=== PATIENT | male | born 1980 ===

== ENCOUNTER → 2020-03-24 11:33 | Outpatient (BNVA) | payer MEDICARE, MEDICAID, SELFPAY | PROVIDERS: Visit Provider Physician Assistant | DX: R74.8 Abnormal levels of other serum enzymes (principal); K75.81 Nonalcoholic steatohepatitis (NASH); K59.09 Other constipation; R10.12 Left upper quadrant pain | CPT/HCPCS: 99214 ==

== ENCOUNTER 2020-04-08 09:19 | Outpatient (REF) | payer MEDICARE, MEDICAID, SELFPAY ==
[2020-04-08 11:26] LABS: Alanine Aminotransferase 61 U/L (0-40); Albumin Level 4.7 g/dL (3.5-5.0); Alkaline Phosphatase 90 U/L (39-117); Aspartate Amino Transferase 41 U/L (5-37); Bilirubin Direct 0.4 mg/dL (0.0-0.5); Total Protein 7.8 g/dL (6.5-8.0)
[2020-04-08 11:44] LABS: HBS Num1 0.96 mIU/mL (0-7.99); HBc Num1 0.05 S/CO (0.00-0.79); HBsAGNum1 0.19 S/CO (0.00-0.99); Hepatitis B Core Antibody Nonreactive (Nonreactive); Hepatitis B Surface Antigen Negative (Negative); ~HepC Num1 0.08 S/CO (0.00-0.79); ~Hepatitis B Surface Antibody NONREACTIVE (Nonreactive); ~Hepatitis C Antibody Nonreactive (Nonreactive)
[2020-04-09 04:27] LABS: Hepatitis A Antibody IgG Nonreactive (Nonreactive); ~Hepatitis A Antibody IgG 0.46 S/CO (0.00-0.99)
[2020-04-12 14:56] LABS: Insulin Level Total 20.8 uIU/mL
== END 2020-04-08 09:20 | disposition home or self-care (01) ==
LOC: HO.LAB 09:19
PROVIDERS: PCP Internal Medicine; Visit Provider Physician Assistant
DX: K76.0 Fatty (change of) liver, not elsewhere classified (principal); R74.8 Abnormal levels of other serum enzymes; R10.11 Right upper quadrant pain
CPT/HCPCS: 80076; 83525; 86704; 86706; 86708; 86803; 87340

== ENCOUNTER → 2020-05-03 10:17 | Outpatient (BNVA) | payer MEDICARE, MEDICAID, SELFPAY | PROVIDERS: PCP Internal Medicine; Visit Provider Physician Assistant | DX: K75.81 Nonalcoholic steatohepatitis (NASH) (principal) | CPT/HCPCS: Q3014 ==

== ENCOUNTER → 2020-05-11 14:49 | Outpatient (BNVA) | payer MEDICARE, MEDICAID, SELFPAY | PROVIDERS: PCP Internal Medicine; Visit Provider Physician Assistant | DX: Z23 Encounter for immunization (principal) | CPT/HCPCS: 90471; 90632; 90746 ==

== ENCOUNTER → 2020-06-22 14:50 | Outpatient (BNVA) | payer MEDICARE, MEDICAID, SELFPAY | PROVIDERS: PCP Internal Medicine; Visit Provider Physician Assistant | DX: Z23 Encounter for immunization (principal) | CPT/HCPCS: 90471; 90746 ==

== ENCOUNTER 2020-07-12 09:24 | Outpatient (REF) | payer MEDICARE, MEDICAID, SELFPAY ==
[2020-07-12 10:07] LABS: MANUAL DIFF FLAG NO
[2020-07-12 10:10] LABS: Basophils Percent Auto 0.6 % (0-2); Eosinophils Absolute Auto 0.1 X10*3/uL (0.0-0.4); Eosinophils Percent Auto 2.1 % (0-4); Imm Gran Abs Auto 0.01 X10*3/uL (0.00-0.03); Imm Gran Pct Auto 0.2 % (0.0-0.4); Lymphocytes Absolute Auto 2.3 X10*3/uL (1.2-4.9); Lymphocytes Percent Auto 43.1 % (20-40); Mean Corpuscular HGB Conc 34.8 g/dl (31.0-36.0); Mean Corpuscular Hemoglobin 31.4 pg (27.0-33.0); Mean Corpuscular Volume 90.4 fL (80-98); Mean Platelet Volume 9.6 fL (9.4-12.4); Monocytes Absolute Auto 0.3 X10*3/uL (0.1-1.2); Monocytes Percent Auto 5.5 % (2-11); Neutrophils Absolute Auto 2.6 X10*3/uL (2.0-8.3); Neutrophils Percent Auto 48.5 % (45-73); Platelet Count 180 X10*3/uL (160-400); Red Blood Count 5.09 X10*6/uL (4.60-5.80); Red Cell Distribution Width 12.2 % (11.0-16.0); White Blood Count 5.3 X10*3/uL (4.8-10.8)
[2020-07-12 10:30] LABS: Estimated Average Glucose 108 mg/dL; Hemoglobin A1c % 5.4 %
[2020-07-12 10:35] LABS: Alanine Aminotransferase 57 U/L (0-40); Albumin Level 4.7 g/dL (3.5-5.0); Alkaline Phosphatase 81 U/L (39-117); Anion Gap 13 (12-20); Aspartate Amino Transferase 30 U/L (5-37); Bilirubin Total 0.9 mg/dL (0.0-1.0); Blood Urea Nitrogen 18 mg/dL (9-16); Calcium 9.5 mg/dL (8.4-10.2); Carbon Dioxide 26 mmol/L (22-29); Chloride 105 mmol/L (96-108); Cholesterol 161 mg/dL; Estimated Glomerular Filt Rate > 60; Glucose Fasting 104 mg/dL (60-99); HDL Cholesterol 33 mg/dL; LDL Cholesterol Calculated 104 mg/dl; Potassium 4.1 mmol/l (3.3-5.1); Sodium 140 mmol/L (135-145); Total Protein 7.7 g/dL (6.5-8.0); Triglycerides 120 mg/dL; Uric Acid 10.1 mg/dL (3.4-7.0)
[2020-07-12 10:40] LABS: Glucose Urine UA NEG (NEG); Leukocyte Esterase Urine NEG (NEG); Nitrite Urine NEG (NEG); Specific Gravity - Urine 1.025 (1.005-1.025); Urine Blood NEG (NEG); Urine Ketones NEG (NEG); Urine Protein NEG (NEG-TRACE)
[2020-07-12 10:42] LABS: Appearance Urine CLEAR; Color Urine YELLOW
[2020-07-12 10:45] LABS: Creatinine Urine 179.54 mg/dL; Microalbum/Creatinine Ratio Ur 40.6 ug/mg cr
[2020-07-12 10:53] LABS: HBsAGNum1 0.29 S/CO (0.00-0.99); Hepatitis B Surface Antigen Negative (Negative)
[2020-07-12 10:55] LABS: TSH reflex Free T4 0.73 mIU/mL (0.32-4.0)
== END 2020-07-12 09:25 | disposition home or self-care (01) ==
LOC: HO.LAB 09:24
PROVIDERS: Absent Provider Physician Assistant; PCP Internal Medicine; Visit Provider Internal Medicine
DX: R74.8 Abnormal levels of other serum enzymes (principal); K59.04 Chronic idiopathic constipation; I10 Essential (primary) hypertension; E66.9 Obesity, unspecified; E11.9 Type 2 diabetes mellitus without complications; M10.9 Gout, unspecified
CPT/HCPCS: 36415; 80053; 80061; 81003; 82043; 83036; 84443; 84550; 85025; 87340

== ENCOUNTER → 2020-10-27 14:45 | Outpatient (BNVA) | payer MEDICARE, MEDICAID, SELFPAY | PROVIDERS: PCP Internal Medicine; Visit Provider Physician Assistant | DX: R74.8 Abnormal levels of other serum enzymes (principal) | CPT/HCPCS: 99212 ==

== ENCOUNTER → 2020-11-17 15:02 | Outpatient (BNVA) | payer MEDICARE, MEDICAID, SELFPAY | PROVIDERS: PCP Internal Medicine; Visit Provider Physician Assistant | DX: Z23 Encounter for immunization (principal) | CPT/HCPCS: 90471; 90472; 90632; 90746 ==

== ENCOUNTER 2020-12-24 08:33 | Outpatient (REF) | payer MEDICARE, MEDICAID, SELFPAY ==
[2020-12-24 09:21] LABS: MANUAL DIFF FLAG NO
[2020-12-24 09:25] LABS: Basophils Percent Auto 0.3 % (0-2); Eosinophils Absolute Auto 0.1 X10*3/uL (0.0-0.4); Eosinophils Percent Auto 2.4 % (0-4); Hemoglobin 14.7 g/dl (14.0-18.0); Imm Gran Abs Auto 0.02 X10*3/uL (0.00-0.03); Imm Gran Pct Auto 0.3 % (0.0-0.4); Lymphocytes Absolute Auto 2.1 X10*3/uL (1.2-4.9); Lymphocytes Percent Auto 36.2 % (20-40); Mean Corpuscular HGB Conc 33.4 g/dl (31.0-36.0); Mean Corpuscular Volume 92.8 fL (80-98); Mean Platelet Volume 9.6 fL (9.4-12.4); Monocytes Absolute Auto 0.3 X10*3/uL (0.1-1.2); Monocytes Percent Auto 5.6 % (2-11); Neutrophils Absolute Auto 3.2 X10*3/uL (2.0-8.3); Neutrophils Percent Auto 55.2 % (45-73); Platelet Count 191 X10*3/uL (160-400); Red Blood Count 4.74 X10*6/uL (4.60-5.80); Red Cell Distribution Width 13.5 % (11.0-16.0); White Blood Count 5.9 X10*3/uL (4.8-10.8)
[2020-12-24 09:27] LABS: Glucose Urine UA NEG (NEG); Leukocyte Esterase Urine NEG (NEG); Nitrite Urine NEG (NEG); Urine Blood NEG (NEG); Urine Ketones NEG (NEG); Urine Protein NEG (NEG-TRACE)
[2020-12-24 09:28] LABS: Appearance Urine CLEAR; Color Urine YELLOW
[2020-12-24 09:51] LABS: Creatinine Urine 132.73 mg/dL; Microalbum/Creatinine Ratio Ur 5.2 ug/mg cr
[2020-12-24 09:52] LABS: Estimated Average Glucose 100 mg/dL; Hemoglobin A1c % 5.1 %
[2020-12-24 09:55] LABS: Alanine Aminotransferase 24 U/L (0-40); Albumin Level 4.5 g/dL (3.5-5.0); Alkaline Phosphatase 83 U/L (39-117); Anion Gap 12 (12-20); Aspartate Amino Transferase 19 U/L (5-37); Bilirubin Total 0.6 mg/dL (0.0-1.0); Blood Urea Nitrogen 16 mg/dL (9-16); Calcium 9.6 mg/dL (8.4-10.2); Carbon Dioxide 26 mmol/L (22-29); Chloride 106 mmol/L (96-108); Cholesterol 169 mg/dL; Estimated Glomerular Filt Rate > 60; Glucose Fasting 96 mg/dL (60-99); HDL Cholesterol 38 mg/dL; LDL Cholesterol Calculated 114 mg/dl; Potassium 4.8 mmol/L (3.3-5.1); Sodium 139 mmol/L (135-145); Total Protein 7.5 g/dL (6.5-8.0); Triglycerides 87 mg/dL; Uric Acid 7.3 mg/dL (3.4-7.0)
[2020-12-24 10:18] LABS: TSH reflex Free T4 0.56 uIU/mL (0.32-4.0)
[2020-12-24 16:07] LABS: Alanine Aminotransferase 24 U/L (0-40); Albumin Level 4.5 g/dL (3.5-5.0); Alkaline Phosphatase 83 U/L (39-117); Anion Gap 14 (12-20); Aspartate Amino Transferase 20 U/L (5-37); Bilirubin Total 0.6 mg/dL (0.0-1.0); Blood Urea Nitrogen 16 mg/dL (9-16); Calcium 9.6 mg/dL (8.4-10.2); Carbon Dioxide 25 mmol/L (22-29); Chloride 105 mmol/L (96-108); Cholesterol 171 mg/dL; Estimated Glomerular Filt Rate > 60; Glucose Random 96 mg/dL (60-115); HDL Cholesterol 38 mg/dL; LDL Cholesterol Calculated 116 mg/dl; Potassium 4.8 mmol/L (3.3-5.1); Sodium 139 mmol/L (135-145); Total Protein 7.5 g/dL (6.5-8.0); Triglycerides 87 mg/dL
== END 2020-12-24 08:34 | disposition home or self-care (01) ==
LOC: HO.LAB 08:33
PROVIDERS: PCP Internal Medicine; Referring Provider Internal Medicine; Visit Provider Physician Assistant
DX: R10.11 Right upper quadrant pain (principal); K76.0 Fatty (change of) liver, not elsewhere classified; K59.04 Chronic idiopathic constipation; E66.9 Obesity, unspecified; I10 Essential (primary) hypertension; E11.9 Type 2 diabetes mellitus without complications; Z87.39 Personal history of other diseases of the musculoskeletal system and connective tissue
CPT/HCPCS: 36415; 80053; 80061; 81003; 82043; 83036; 84443; 84550; 85025

== ENCOUNTER → 2021-03-30 14:30 | Outpatient (BNVA) | payer MEDICARE, MEDICAID, SELFPAY | PROVIDERS: PCP Internal Medicine; Referring Provider Internal Medicine; Visit Provider Physician Assistant | DX: K75.81 Nonalcoholic steatohepatitis (NASH) (principal) | CPT/HCPCS: Q3014 ==

== ENCOUNTER 2021-04-22 13:13 | Outpatient (REF) | payer MEDICARE, MEDICAID, SELFPAY ==
[2021-04-22 13:27] LABS: MANUAL DIFF FLAG NO
[2021-04-22 13:59] LABS: Appearance Urine CLEAR; Color Urine YELLOW; Glucose Urine UA NEG (NEG); Leukocyte Esterase Urine NEG (NEG); Nitrite Urine NEG (NEG); Specific Gravity - Urine 1.015 (1.005-1.025); Urine Blood NEG (NEG); Urine Ketones NEG (NEG); Urine Protein NEG (NEG-TRACE)
[2021-04-22 14:05] LABS: Basophils Percent Auto 0.6 % (0-2); Eosinophils Absolute Auto 0.1 X10*3/uL (0.0-0.4); Hematocrit 38.4 % (42.0-52.0); Hemoglobin 12.9 g/dl (14.0-18.0); Imm Gran Abs Auto 0.02 X10*3/uL (0.00-0.03); Imm Gran Pct Auto 0.4 % (0.0-0.4); Lymphocytes Absolute Auto 2.6 X10*3/uL (1.2-4.9); Lymphocytes Percent Auto 47.1 % (20-40); Mean Corpuscular HGB Conc 33.6 g/dl (31.0-36.0); Mean Corpuscular Hemoglobin 31.5 pg (27.0-33.0); Mean Corpuscular Volume 93.9 fL (80.0-98.0); Monocytes Absolute Auto 0.4 X10*3/uL (0.1-1.2); Monocytes Percent Auto 6.4 % (2-11); Neutrophils Absolute Auto 2.4 x10*3/uL (2.0-8.3); Neutrophils Percent Auto 43.5 % (45-73); Platelet Count 165 X10*3/uL (160-400); Red Blood Count 4.09 X10*6/uL (4.60-5.80); Red Cell Distribution Width 13.7 % (11.0-16.0); White Blood Count 5.4 X10*3/uL (4.8-10.8)
[2021-04-22 14:26] LABS: Alanine Aminotransferase 21 U/L (0-40); Albumin Level 4.5 g/dL (3.5-5.0); Alkaline Phosphatase 71 U/L (39-117); Anion Gap 13 (12-20); Aspartate Amino Transferase 23 U/L (5-37); Bilirubin Total 1.2 mg/dL (0.0-1.0); Blood Urea Nitrogen 16 mg/dL (9-16); Calcium 9.5 mg/dL (8.4-10.2); Carbon Dioxide 27 mmol/L (22-29); Chloride 104 mmol/L (96-108); Cholesterol 161 mg/dL; Estimated Glomerular Filt Rate > 60; Glucose Fasting 88 mg/dL (60-99); HDL Cholesterol 36 mg/dL; LDL Cholesterol Calculated 98 mg/dl; Potassium 4.5 mmol/L (3.3-5.1); Sodium 139 mmol/L (135-145); Total Protein 7.4 g/dL (6.5-8.0); Triglycerides 137 mg/dL; Uric Acid 8.9 mg/dL (3.4-7.0)
[2021-04-22 14:36] LABS: Estimated Average Glucose 103 mg/dL; Hemoglobin A1c % 5.2 %
[2021-04-22 14:49] LABS: TSH reflex Free T4 0.56 uIU/mL (0.32-4.0)
== END 2021-04-22 13:14 | disposition home or self-care (01) ==
LOC: HO.LAB 13:13
PROVIDERS: PCP Internal Medicine; Visit Provider Internal Medicine
DX: Z00.00 Encounter for general adult medical examination without abnormal findings (principal); I10 Essential (primary) hypertension; E66.9 Obesity, unspecified; R73.01 Impaired fasting glucose; M10.9 Gout, unspecified; Z87.39 Personal history of other diseases of the musculoskeletal system and connective tissue
CPT/HCPCS: 36415; 80053; 80061; 81003; 83036; 84443; 84550; 85025

== ENCOUNTER 2021-08-24 08:50 | Outpatient (REF) | payer MEDICARE, MEDICAID, SELFPAY ==
[2021-08-24 09:25] LABS: MANUAL DIFF FLAG NO
[2021-08-24 10:13] LABS: Basophils Percent Auto 0.6 % (0-2); Eosinophils Absolute Auto 0.1 X10*3/uL (0.0-0.4); Eosinophils Percent Auto 2.5 % (0-4); Hematocrit 40.5 % (42.0-52.0); Hemoglobin 13.3 g/dl (14.0-18.0); Imm Gran Abs Auto 0.01 X10*3/uL (0.00-0.03); Imm Gran Pct Auto 0.2 % (0.0-0.4); Lymphocytes Percent Auto 41.4 % (20-40); Mean Corpuscular HGB Conc 32.8 g/dl (31.0-36.0); Mean Corpuscular Hemoglobin 30.9 pg (27.0-33.0); Mean Platelet Volume 10.2 fL (9.4-12.4); Monocytes Absolute Auto 0.3 X10*3/uL (0.1-1.2); Neutrophils Absolute Auto 2.4 x10*3/uL (2.0-8.3); Neutrophils Percent Auto 49.3 % (45-73); Platelet Count 174 X10*3/uL (160-400); Red Blood Count 4.31 X10*6/uL (4.60-5.80); Red Cell Distribution Width 13.6 % (11.0-16.0); White Blood Count 4.9 X10*3/uL (4.8-10.8)
[2021-08-24 10:27] LABS: Estimated Average Glucose 103 mg/dL; Hemoglobin A1c % 5.2 %
[2021-08-24 10:48] LABS: Alanine Aminotransferase 20 U/L (0-40); Albumin Level 4.3 g/dL (3.5-5.0); Alkaline Phosphatase 71 U/L (39-117); Anion Gap 9 (12-20); Aspartate Amino Transferase 22 U/L (5-37); Bilirubin Total 0.8 mg/dL (0.0-1.0); Blood Urea Nitrogen 11 mg/dL (9-16); Calcium 9.4 mg/dL (8.4-10.2); Carbon Dioxide 30 mmol/L (22-29); Chloride 105 mmol/L (96-108); Cholesterol 146 mg/dL; Estimated Glomerular Filt Rate > 60; Glucose Fasting 78 mg/dL (60-99); HDL Cholesterol 33 mg/dL; LDL Cholesterol Calculated 79 mg/dl; Potassium 4.3 mmol/L (3.3-5.1); Sodium 140 mmol/L (135-145); Total Protein 7.1 g/dL (6.5-8.0); Triglycerides 173 mg/dL; Uric Acid 8.4 mg/dL (3.4-7.0)
[2021-08-24 10:52] LABS: Appearance Urine HAZY; Color Urine YELLOW; Glucose Urine UA NEG (NEG); Leukocyte Esterase Urine NEG (NEG); Nitrite Urine NEG (NEG); Urine Blood NEG (NEG); Urine Ketones NEG (NEG); Urine Protein NEG (NEG-TRACE)
[2021-08-24 11:49] LABS: TSH reflex Free T4 0.84 uIU/mL (0.32-4.0); Vitamin D 25-OH Total 20.3 ng/mL (>30)
== END 2021-08-24 08:51 | disposition home or self-care (01) ==
LOC: HO.LAB 08:50
PROVIDERS: Absent Provider Internal Medicine; PCP Internal Medicine; Visit Provider Physician Assistant
DX: I10 Essential (primary) hypertension (principal); E78.00 Pure hypercholesterolemia, unspecified; R73.01 Impaired fasting glucose; M10.9 Gout, unspecified; E55.9 Vitamin D deficiency, unspecified
CPT/HCPCS: 36415; 80053; 80061; 81003; 82306; 83036; 84443; 84550; 85025

== ENCOUNTER → 2021-09-28 14:12 | Outpatient (BNVA) | payer MEDICARE, MEDICAID, SELFPAY | PROVIDERS: PCP Internal Medicine; Visit Provider Physician Assistant | DX: K76.0 Fatty (change of) liver, not elsewhere classified (principal); D64.9 Anemia, unspecified | CPT/HCPCS: Q3014 ==

== ENCOUNTER 2021-12-05 09:52 | Outpatient (REF) | payer MEDICARE, MEDICAID, SELFPAY ==
[2021-12-05 10:05] LABS: MANUAL DIFF FLAG NO
[2021-12-05 10:40] LABS: Basophils Percent Auto 0.5 % (0-2); Eosinophils Absolute Auto 0.1 X10*3/uL (0.0-0.4); Eosinophils Percent Auto 2.2 % (0-4); Hematocrit 40.7 % (42.0-52.0); Imm Gran Abs Auto 0.02 X10*3/uL (0.00-0.03); Imm Gran Pct Auto 0.5 % (0.0-0.4); Lymphocytes Absolute Auto 1.9 X10*3/uL (1.2-4.9); Lymphocytes Percent Auto 46.4 % (20-40); Mean Corpuscular HGB Conc 34.4 g/dl (31.0-36.0); Mean Corpuscular Hemoglobin 31.6 pg (27.0-33.0); Mean Corpuscular Volume 91.9 fL (80.0-98.0); Mean Platelet Volume 9.7 fL (9.4-12.4); Monocytes Absolute Auto 0.3 X10*3/uL (0.1-1.2); Monocytes Percent Auto 6.3 % (2-11); Neutrophils Absolute Auto 1.8 x10*3/uL (2.0-8.3); Neutrophils Percent Auto 44.1 % (45-73); Platelet Count 180 X10*3/uL (160-400); Red Blood Count 4.43 X10*6/uL (4.60-5.80); Red Cell Distribution Width 12.9 % (11.0-16.0); White Blood Count 4.1 X10*3/uL (4.8-10.8)
[2021-12-05 11:17] LABS: TSH reflex Free T4 0.76 uIU/mL (0.32-4.0); Vitamin D 25-OH Total 26.3 ng/mL (>30)
[2021-12-05 11:22] LABS: Alanine Aminotransferase 36 U/L (0-40); Albumin Level 4.4 g/dL (3.5-5.0); Alkaline Phosphatase 58 U/L (39-117); Anion Gap 14 (12-20); Aspartate Amino Transferase 24 U/L (5-37); Bilirubin Total 0.7 mg/dL (0.0-1.0); Blood Urea Nitrogen 30 mg/dL (9-16); Calcium 9.2 mg/dL (8.4-10.2); Carbon Dioxide 25 mmol/L (22-29); Chloride 104 mmol/L (96-108); Cholesterol 190 mg/dL; Estimated Glomerular Filt Rate 58; Glucose Fasting 118 mg/dL (60-99); HDL Cholesterol 32 mg/dL; Iron 104 mcg/dL (45-160); LDL Cholesterol Calculated 123 mg/dl; Percent Iron Saturation 31 % (15-50); Potassium 4.9 mmol/L (3.3-5.1); Sodium 138 mmol/L (135-145); Total Iron Binding Capacity 337 mcg/dL (228-428); Total Protein 7.1 g/dL (6.5-8.0); Triglycerides 175 mg/dL; Unsaturated Iron Binding 233 ug/dL; Uric Acid 8.3 mg/dL (3.4-7.0)
[2021-12-05 12:34] LABS: Appearance Urine CLEAR; Color Urine YELLOW; Glucose Urine UA NEG (NEG); Leukocyte Esterase Urine NEG (NEG); Nitrite Urine NEG (NEG); PH 5.5 (5.0-8.0); Specific Gravity - Urine >= 1.030 (1.005-1.025); Urine Blood NEG (NEG); Urine Ketones NEG (NEG); Urine Protein NEG (NEG-TRACE)
== END 2021-12-05 09:53 | disposition home or self-care (01) ==
LOC: HO.LAB 09:52
PROVIDERS: Absent Provider Internal Medicine; PCP Internal Medicine; Visit Provider Physician Assistant
DX: E78.00 Pure hypercholesterolemia, unspecified (principal); I10 Essential (primary) hypertension; M10.9 Gout, unspecified; E55.9 Vitamin D deficiency, unspecified; D64.9 Anemia, unspecified; K76.0 Fatty (change of) liver, not elsewhere classified
CPT/HCPCS: 36415; 80053; 80061; 81003; 82306; 83540; 84443; 84550; 85025

== ENCOUNTER 2022-06-26 10:06 | Outpatient (REF) | payer MEDICARE, MEDICAID, SELFPAY ==
[2022-06-26 10:29] LABS: MANUAL DIFF FLAG NO
[2022-06-26 11:00] LABS: Basophils Percent Auto 0.7 % (0-2); Eosinophils Absolute Auto 0.2 X10*3/uL (0.0-0.4); Eosinophils Percent Auto 2.9 % (0-4); Hematocrit 44.7 % (42.0-52.0); Hemoglobin 15.1 g/dl (14.0-18.0); Imm Gran Abs Auto 0.09 X10*3/uL (0.00-0.03); Imm Gran Pct Auto 1.5 % (0.0-0.4); Lymphocytes Absolute Auto 2.5 X10*3/uL (1.2-4.9); Lymphocytes Percent Auto 41.3 % (20-40); Mean Corpuscular HGB Conc 33.8 g/dl (31.0-36.0); Mean Corpuscular Hemoglobin 31.9 pg (27.0-33.0); Mean Corpuscular Volume 94.5 fL (80.0-98.0); Mean Platelet Volume 9.4 fL (9.4-12.4); Monocytes Absolute Auto 0.4 X10*3/uL (0.1-1.2); Monocytes Percent Auto 6.2 % (2-11); Neutrophils Absolute Auto 2.9 x10*3/uL (2.0-8.3); Neutrophils Percent Auto 47.4 % (45-73); Platelet Count 230 X10*3/uL (160-400); Red Blood Count 4.73 X10*6/uL (4.60-5.80); Red Cell Distribution Width 12.1 % (11.0-16.0); White Blood Count 6.1 X10*3/uL (4.8-10.8)
[2022-06-26 11:07] LABS: Appearance Urine Clear; Color Urine Yellow; Glucose Urine UA Negative (Negative); Leukocyte Esterase Urine Negative (Negative); Nitrite Urine Negative (Negative); PH 5.5 (5.0-9.0); Urine Blood Negative (Negative); Urine Ketones Negative (Negative); Urine Protein Negative (Neg-Trace)
[2022-06-26 11:09] LABS: Estimated Average Glucose 105 mg/dL; Hemoglobin A1c % 5.3 %
[2022-06-26 11:37] LABS: Cholesterol 219 mg/dL; HDL Cholesterol 39 mg/dL; LDL Cholesterol Calculated 143 mg/dl; Triglycerides 185 mg/dL
[2022-06-26 11:41] LABS: Alanine Aminotransferase 45 U/L (0-40); Albumin Level 4.6 g/dL (3.5-5.0); Alkaline Phosphatase 70 U/L (39-117); Anion Gap 14 (12-20); Aspartate Amino Transferase 32 U/L (5-37); Bilirubin Total 0.6 mg/dL (0.0-1.0); Blood Urea Nitrogen 14 mg/dL (9-16); Calcium 10.3 mg/dL (8.4-10.2); Carbon Dioxide 28 mmol/L (22-29); Chloride 103 mmol/L (96-108); Estimated Glomerular Filt Rate > 60; Glucose Fasting 107 mg/dL (60-99); Potassium 4.5 mmol/L (3.3-5.1); Sodium 140 mmol/L (135-145); Total Protein 7.8 g/dL (6.5-8.0); Uric Acid 9.5 mg/dL (3.4-7.0)
[2022-06-26 12:01] LABS: TSH reflex Free T4 0.89 uIU/mL (0.32-4.0); Vitamin D 25-OH Total 30.5 ng/mL (>30)
== END 2022-06-26 10:07 | disposition home or self-care (01) ==
LOC: HO.LAB 10:06
PROVIDERS: PCP Internal Medicine; Referring Provider Registered Nurse; Visit Provider Internal Medicine
DX: M10.9 Gout, unspecified (principal); I10 Essential (primary) hypertension; E55.9 Vitamin D deficiency, unspecified; E78.00 Pure hypercholesterolemia, unspecified; F31.81 Bipolar II disorder; K75.81 Nonalcoholic steatohepatitis (NASH); E66.9 Obesity, unspecified; R74.8 Abnormal levels of other serum enzymes
CPT/HCPCS: 36415; 80053; 80061; 81003; 82306; 83036; 84443; 84550; 85025; 99212

== ENCOUNTER 2022-09-04 09:49 | Outpatient (REF) | payer MEDICARE, MEDICAID, SELFPAY ==
--- NOTE | ~2022-09-04 | US_ITS ---
EXAMINATION: US COMPLETE ABDOMEN WITH LIVER ELASTOGRAPHY CLINICAL INFORMATION: Elevated liver enzymes. COMPARISON: Ultrasound abdomen limited 03/08/2020. TECHNIQUE: Real-time imaging of the abdominal viscera. Noninvasive ultrasound liver fibrosis assessment is performed using Donald ElastPQ point quantification shear wave elastography (2D-SWE) with a C5-2 MHz transducer. Multiple elastography samples are obtained. FINDINGS: PANCREAS: The visualized pancreatic head and body are normal in appearance. The tail of the pancreas is obscured from visualization by the overlying bowel gas. ABDOMINAL AORTA: The proximal, middle, and distal aortic segments are normal in caliber. INFERIOR VENA CAVA: Visualized portions are normal. LIVER: Normal. The liver demonstrates normal size, contour and echogenicity. No focal lesion or intrahepatic biliary duct dilatation. The right lobe measures 16.2 cm in length. The left lobe measures 10.0 cm in length. Portal flow is hepatopedal. Shear wave liver elastography median stiffness is 1.84 m/s (reference: normal median stiffness is 1.3 m/s or less). IQR/median stiffness to assess sampling precision is 0.08 (reference: good quality data set is IQR/median stiffness of 0.15 or less). GALLBLADDER: Gallbladder wall thickness is 0.23 cm. The gallbladder is physiologically distended without evidence of stones, sludge, polyps, wall thickening or pericholecystic fluid. COMMON BILE DUCT: Normal in caliber measuring 0.52 cm in diameter. RIGHT KIDNEY: No hydronephrosis. No renal calculi or focal parenchymal lesions. The kidney measures 13.0 cm in maximum dimension. There is a soft tissue density along the lower poles of both kidneys questioning horseshoe kidney. LEFT KIDNEY: Normal. No hydronephrosis. No renal calculi or focal parenchymal lesions. The kidney measures 10.7 cm in maximum dimension. Question horseshoe kidney. However, this was not evident on the last ultrasound exam. SPLEEN: Normal. The spleen measures 10.9 cm in maximum dimension. FREE FLUID: None. US/US abdomen comp w elastography IMPRESSION: 1. Mild hepatic steatosis. No focal lesion seen. 2. Question horseshoe kidney. However, this was not seen on the 2 last ultrasound exams 03/08/2020 and 09/30/2007. 3. Liver elastography: Median liver stiffness measures 1.84 m/s corresponding to cACLD suggestive. REFERENCE: Society of Radiologists in Ultrasound Liver Stiffness Thresholds (2020): LIVER STIFFNESS THRESHOLDS: *Liver Stiffness equal or less than 1.3 m/s: High probability of being normal. *Liver Stiffness less than 1.7 m/s: In the absence of other known clinical signs, rules out compensated advanced chronic liver disease. *Liver Stiffness 1.7-2.1 m/s: Suggestive of compensated advanced chronic liver disease but need further test for confirmation. *Liver Stiffness over 2.1 m/s: Rules in compensated advanced chronic liver disease. *Liver Stiffness over 2.4 m/s: Suggestive of clinically significant portal hypertension. QUALITY OF DATA SET: *IQR/Median value equal or less than 0.15 implies a quality data set. *IQR/Median value over 0.15 implies a poor quality data set. SIGNIFICANT CHANGE FROM PRIOR EXAM: Significant change if liver stiffness measurement is 10% or greater from prior exam. OTHER CONSIDERATIONS: The stage of liver fibrosis may be overestimated in the setting of acute hepatitis, liver inflammation, elevated liver function tests, hepatic vascular congestion, obstructive cholestasis, non-fasting state, and infiltrative diseases such as amyloidosis and lymphoma. In some patients with NAFLD, the liver stiffness thresholds for compensated advanced chronic liver disease may be lower. In causes other than viral hepatitis and NAFLD, liver stiffness thresholds are not well established.
== END 2022-09-04 09:50 | disposition home or self-care (01) ==
LOC: HO.US 09:49
PROVIDERS: PCP Internal Medicine; Visit Provider Physician Assistant
DX: K76.0 Fatty (change of) liver, not elsewhere classified (principal); R74.8 Abnormal levels of other serum enzymes
CPT/HCPCS: 76705; 76981

== ENCOUNTER → 2022-09-25 13:48 | Outpatient (BNVA) | payer MEDICARE, MEDICAID, SELFPAY | PROVIDERS: PCP Internal Medicine; Visit Provider Physician Assistant | DX: K76.0 Fatty (change of) liver, not elsewhere classified (principal); K59.04 Chronic idiopathic constipation | CPT/HCPCS: 99212 ==

== ENCOUNTER 2023-03-03 08:35 | Outpatient (REF) | payer MEDICARE, MEDICAID, SELFPAY ==
--- NOTE | ~2023-03-03 | XR_ITS ---
EXAMINATION: XR LUMBAR SPINE XR HIP, LEFT CLINICAL INFORMATION: Back pain, left hip pain. COMPARISON: Left hip 10/09/2013. TECHNIQUE: 3 views of the lumbar spine. 2 views of the left hip. FINDINGS: LEFT HIP: Previously described shallow acetabulum with slight uncovering felt to be suggestive of mild hip dysplasia redemonstrated. Rounded pelvic calcifications are likely vascular. Hip joint alignment is preserved. LUMBAR SPINE: Mild dextroscoliosis of the lumbar spine. Degenerative changes in the bilateral sacroiliac joints. Transitional anatomy with likely partial sacralization of L5 vertebral body with sclerosis. Mild multilevel lumbar spondylosis. Mild loss of disc space height at L4-L5. XR/XR hip LT min 2V IMPRESSION: 1. Redemonstration of previously described subtle uncovering of the left acetabulum felt to be suggestive of mild hip dysplasia. 2. Mild multilevel lumbar spondylosis most notable at L4-L5. 3. Transitional anatomy with likely partial sacralization of L5 vertebral body with sclerosis. Additional imaging with CT scan or MRI should be considered for better visualization as these modalities are much more sensitive for detection of fracture or other underlying pathology.
--- NOTE | ~2023-03-03 | XR_ITS ---
EXAMINATION: XR LUMBAR SPINE XR HIP, LEFT CLINICAL INFORMATION: Back pain, left hip pain. COMPARISON: Left hip 10/09/2013. TECHNIQUE: 3 views of the lumbar spine. 2 views of the left hip. FINDINGS: LEFT HIP: Previously described shallow acetabulum with slight uncovering felt to be suggestive of mild hip dysplasia redemonstrated. Rounded pelvic calcifications are likely vascular. Hip joint alignment is preserved. LUMBAR SPINE: Mild dextroscoliosis of the lumbar spine. Degenerative changes in the bilateral sacroiliac joints. Transitional anatomy with likely partial sacralization of L5 vertebral body with sclerosis. Mild multilevel lumbar spondylosis. Mild loss of disc space height at L4-L5. XR/XR lumbar spine 2-3V IMPRESSION: 1. Redemonstration of previously described subtle uncovering of the left acetabulum felt to be suggestive of mild hip dysplasia. 2. Mild multilevel lumbar spondylosis most notable at L4-L5. 3. Transitional anatomy with likely partial sacralization of L5 vertebral body with sclerosis. Additional imaging with CT scan or MRI should be considered for better visualization as these modalities are much more sensitive for detection of fracture or other underlying pathology.
[2023-03-03 08:54] LABS: MANUAL DIFF FLAG NO
[2023-03-03 09:10] LABS: Eosinophils Absolute Auto 0.1 X10*3/uL (0.0-0.4); Eosinophils Percent Auto 3.1 % (0-4); Hematocrit 40.8 % (42.0-52.0); Hemoglobin 14.1 g/dl (14.0-18.0); Imm Gran Abs Auto 0.01 X10*3/uL (0.00-0.03); Imm Gran Pct Auto 0.2 % (0.0-0.4); Lymphocytes Absolute Auto 1.7 X10*3/uL (1.2-4.9); Lymphocytes Percent Auto 40.6 % (20-40); Mean Corpuscular HGB Conc 34.6 g/dl (31.0-36.0); Mean Corpuscular Hemoglobin 31.8 pg (27.0-33.0); Mean Corpuscular Volume 92.1 fL (80.0-98.0); Mean Platelet Volume 9.6 fL (9.4-12.4); Monocytes Absolute Auto 0.3 X10*3/uL (0.1-1.2); Monocytes Percent Auto 7.7 % (2-11); Neutrophils Percent Auto 47.4 % (45-73); Platelet Count 184 X10*3/uL (160-400); Red Blood Count 4.43 X10*6/uL (4.60-5.80); White Blood Count 4.2 X10*3/uL (4.8-10.8)
[2023-03-03 09:50] LABS: Alanine Aminotransferase 56 U/L (0-40); Albumin Level 4.1 g/dL (3.5-5.0); Alkaline Phosphatase 71 U/L (39-117); Anion Gap 10 (12-20); Aspartate Amino Transferase 43 U/L (5-37); Bilirubin Total 0.8 mg/dL (0.0-1.0); Blood Urea Nitrogen 18 mg/dL (9-16); Calcium 9.2 mg/dL (8.4-10.2); Carbon Dioxide 29 mmol/L (22-29); Chloride 106 mmol/L (96-108); Cholesterol 163 mg/dL (<200); Estimated Glomerular Filt Rate > 60; Glucose Fasting 131 mg/dL (60-99); HDL Cholesterol 32 mg/dL (>40); LDL Cholesterol Calculated 91 mg/dL (<100); Potassium 4.8 mmol/L (3.3-5.1); Sodium 140 mmol/L (135-145); Total Protein 7.3 g/dL (6.5-8.0); Triglycerides 203 mg/dL (<150); Uric Acid 8.5 mg/dL (3.4-7.0)
[2023-03-03 09:59] LABS: TSH reflex Free T4 0.48 uIU/mL (0.32-4.0); Vitamin D 25-OH Total 24.2 ng/mL (>30)
[2023-03-03 11:02] LABS: Appearance Urine Clear; Color Urine Dark Yellow; Glucose Urine UA Negative (Negative); Leukocyte Esterase Urine Negative (Negative); Nitrite Urine Negative (Negative); PH 5.5 (5.0-9.0); Specific Gravity - Urine >= 1.030 (1.005-1.025); Urine Blood Negative (Negative); Urine Ketones Negative (Negative); Urine Protein Trace mg/dL (Neg-Trace)
== END 2023-03-03 08:36 | disposition home or self-care (01) ==
LOC: HO.XRAY 08:35
PROVIDERS: PCP Internal Medicine; Visit Provider Internal Medicine
DX: M54.50 Low back pain, unspecified (principal); M25.552 Pain in left hip; I10 Essential (primary) hypertension; E78.00 Pure hypercholesterolemia, unspecified; E55.9 Vitamin D deficiency, unspecified; M10.9 Gout, unspecified; R30.0 Dysuria
CPT/HCPCS: 36415; 72100; 73502; 80053; 80061; 81003; 82306; 84443; 84550; 85025

== ENCOUNTER 2023-03-12 15:39 | Outpatient (AMB) | payer MEDICARE, MEDICAID, SELFPAY ==
[2023-03-12 15:42] VITALS: BP 136/84; PULSE 109; O2SAT 97; BMI 35.5
--- NOTE | 2023-03-12 15:42 | A.OFFPC_ITS ---
Vital Signs 03/12/23 15:42 Height 6 ft 1.56 in Weight 273 lb 8 oz BMI 35.5 BP 136/84 Blood Pressure Location Lt brachial Position Sitting Pulse 109 H Pulse Source Pulse Oximeter Pulse Oximetry (%) 97 Oxygen Delivery Method Room Air Intake Visit Reasons: hyperlipidemia, gout, left hip dysplasia Social Sciences Research Scientist Required: No Accompanied by: Self / Same As Patient Allergies No Known Allergies Allergy (Verified 03/12/23 16:07) Medication List - Last Reconciled 03/12/23 by Elieser Moreno MD allopurinol 300 mg PO DAILY 90 days amantadine HCl 100 mg PO baclofen 20 mg PO TID PRN 30 days cholecalciferol (vitamin D3) 50 mcg PO DAILY 90 days colchicine (gout) 0.6 mg PO BID 30 days docusate sodium (Colace) 100 mg PO DAILY fluoxetine 20 mg PO DAILY 90 days fluticasone propionate 110 mcg/actuation (Flovent HFA) 2 puffs PO BID indomethacin 50 mg PO TID PRN lisinopril 20 mg PO DAILY loratadine 10 mg PO DAILY methylcellulose (laxative) (Citrucel) 500 mg PO TID Mitigare (colchicine (gout)) 0.6 mg PO BID PRN 30 days NS mupirocin 2% 1 appl topical BID 10 days quetiapine 100 mg PO BEDTIME risperidone 1 mg PO DAILY simethicone (Gas Relief (simethicone)) 125 mg PO TID-QID 30 days tizanidine 4 mg PO TID PRN 30 days tramadol 50 mg PO TID PRN 10 days Ventolin HFA 90 mcg/actuation (albuterol sulfate) 2 puffs PO Q6H PRN NS Tobacco use date assessed: 03/12/23 Dental Screening Dental Screen Date: 03/12/23 Did you have a dental visit in the last 12 months?: Yes Did you have a dental problem in the last 6 months where you did not have access to dental care?: No Was dental information given to patient?: Patient has dentist HPI hyperlipidemia, gout, left hip dysplasia HPI Details Patient comes in today for his follow up visit States that he feels okay He denies any headaches or dizziness Denies any chest pains, no SOB No nausea/vomiting, no abdominal pain No change in bowel habits noted Had his follow up labs done a couple of weekends ago - to discuss his results [facility]LY [facility] Medical History Retinal dystrophy Vitamin D deficiency Impaired fasting glucose Obesity (BMI 30-39.9) Depression History of gout Chronic idiopathic constipation Asthma Benign essential hypertension Chronic constipation MORENO (nonalcoholic steatohepatitis) Rectal bleeding Surgical History H/O removal of testicle History of shoulder surgery Family History Mother Hypertension Father No problems noted. Other Mental health problem Social History Household Members Other:: Sister Housing: House Alcohol intake: former Patient Tobacco Use Status: Never used Tobacco e-Cigarette/Vaping Use: Never Used Second Hand Smoke Exposure: No service: No Current occupational status: disabled Cognitive needs: No Hearing needs: No Vision needs: Yes Questionnaire PHQ-9 Over the last 2 weeks, how often have you been bothered by any of the following problems? 1. Little interest or pleasure in doing things: not at all 2. Feeling down, depressed, or hopeless: nearly every day 3. Trouble falling or staying asleep, or sleeping too much: nearly every day 4. Feeling tired or having little energy: nearly every day 5. Poor appetite or overeating: nearly every day 6. Feeling bad about yourself - or that you are a failure or have let yourself or your family down: not at all 7. Trouble concentrating on things, such as reading the newspaper or watching television: nearly every day 8. Moving or speaking so slowly that other people could have noticed. Or the opposite - being so fidgety or restless that you have been moving around a lot more than usual: not at all 9. Thoughts that you would be better off or of hurting yourself in some way: not at all Total score: 15 Depression Screening Interpretation: Positive Depression Screening Follow-up: Existing condition and In treatment 11293 - PHQ-9 Billing: Yes Source: Developed by Drs. Luis Simon, Virgen Davis, Florencio Trevizo and colleagues, with an educational heber from [employer]. Thrive Questionnaire Date Thrive assessed: 03/12/23 I am a: Patient What is your living situation today?: I have a steady place to live Within the past 12 months, did the food you bought not last and you didn't have the money to get more?: Never true Within the past 12 months, did you worry whether your food would run out before you got money to buy more?: Never true Do you have trouble paying for medicines?: No Do you have trouble getting transportation to medical appointments?: No Do you have trouble paying your heating and electricity bill?: No Do you have trouble taking care of your child, family member or friend?: No Do you have trouble with day-to-day activities such as bathing, preparing meals, shopping, managing finances, etc.?: No Are you currently unemployed and looking for a job?: No Are you interested in more education?: No Please select the resources that you would like help with: None Currently or been in a relationship where the following occur: no concerns reported AUDIT C Alcohol Use Questionnaire (AUDIT-C) 1. How often do you have a drink containing alcohol?: Never 3. How often do you have six or more drinks on one occasion?: Never Total Score: 0 Score Reviewed/Action Taken: Yes SUKHWINDER-7 AMB Questionnaire SUKHWINDER-7 Date SUKHWINDER - 7 assessed: 03/12/23 Feeling nervous, anxious, or on edge: 1 = Several days Not being able to stop or control worryin = Not at all Worrying too much about different things: 0 = Not at all Trouble relaxin = Not at all Being so restless that it is hard to sit still: 0 = Not at all Becoming easily annoyed or irritable: 0 = Not at all Feeling afraid as if something awful might happen: 0 = Not at all Total SUKHWINDER-7 score (0-4 normal; 5-9 mild; 10-14 moderate; 15-21 severe): 1 Source: Developed by Drs. Luis Simon, Virgen Davis, Florencio Trevizo and colleagues, with an educational heber from [employer]. SUKHWINDER-7 Assessment Billing SUKHWINDER-7 Assessment Tool: SUKHWINDER-7 Assessment 06071 Review of Systems Const Denies chills, Denies fatigue, Denies fever(s) and Denies headache(s) Eyes Reports blurry vision (patient is reportedly legally blind) and Denies eye pain ENT Denies dysphagia, Denies dizziness, Denies otalgia, Denies headache(s), Denies neck pain, Denies odynophagia and Denies sore throat Card Denies chest pain, Denies palpitations and Denies dyspnea Resp Denies cough, Denies dyspnea and Denies wheezing GI Denies abdominal pain, Reports constipation (better controlled on Rx), Denies dysphagia, Denies heartburn, Denies diarrhea, Denies nausea, Denies odynophagia and Denies vomiting Denies dysuria, Denies nocturia and Denies urinary frequency Musc Details: (+) recurrent pain over the left proximal thigh Denies back pain, Reports arthralgias (left hip - chronic) and Denies neck pain Skin/Breast Denies rash Neuro Denies dizziness and Denies headache(s) Endo Denies fatigue and Denies palpitations Aller/Immun Denies wheezing Physical exam (Primary Care) Vital Signs: Last Vital Signs Pulse 109 H 03/12/23 15:42 BP 136/84 03/12/23 15:42 Pulse Ox 97 03/12/23 15:42 Oxygen Delivery Method Room Air 03/12/23 15:42 BMI result Body Mass Index 35.5 Tobacco/Smoking Status: Tobacco use Status Tobacco use date assessed 03/12/23 03/12/23 15:46 Patient Tobacco Use Status Never used Tobacco 03/12/23 15:46 e-Cigarette/Vaping Use Never Used 03/12/23 15:46 PHQ-9: PHQ-9 Score PHQ-9: Total score 15 03/12/23 15:46 Depression Screening Interpretation: Positive Depression Screening Follow-up: Existing condition and In treatment Thrive Assessment: Date of Thrive Assessment Date Thrive assessed 03/12/23 03/12/23 15:46 Currently or been in a relationship where the following occur: no concerns reported Const General: no acute distress and alert HENMT Ears: TM's normal bilaterally and EAC's normal Throat: Yes posterior oropharynx normal and Yes tonsils normal (no TP congestion noted) Neck Neck: Yes no lymphadenopathy and Yes supple Resp Auscultation: clear to auscultation bilaterally, no rales and no wheezes Cardio Rate: regular rate Rhythm: regular rhythm Heart sounds: no murmurs GI Palpation (GI): Soft to palpation and nontender Auscultation: normal bowel sounds Back/Spine/Pelvis Thoracic/Lumbar Spine: thoracic and lumbar spine normal to inspection Skin Rashes: no rashes Extrem General: Yes no clubbing, cyanosis or edema Left lower extremity: hip/thigh Details: tenderness Location: of the hip Location: anterolaterally Results Reviewed Results Reviewed: Laboratory Tests 03/03/23 08:51 WBC 4.2 L Hgb 14.1 Hct 40.8 L Plt Count 184 Sodium 140 Potassium 4.8 Creatinine 0.86 Estimated GFR > 60 Fasting Glucose 131 H Uric Acid 8.5 H Calcium 9.2 D AST 43 H ALT 56 H Triglycerides 203 H Cholesterol 163 LDL Cholesterol, Calc 91 HDL Cholesterol 32 L 25-OH Vitamin D Total 24.2 TSH 0.48 Ur Specific [place] >= 1.030 H Urine Protein Trace Urine Glucose (UA) Negative Urine Blood Negative Assessment and Plan Assessment & Plan (1) Mixed hyperlipidemia: Code(s): E78.2 - Mixed hyperlipidemia Plan: Results of his labs done a couple of weekends ago reviewed and discussed with patient - advised that his total and LDL cholesterol numbers have improved significantly from previous but his serum triglyceride level has increased, most likely in relation to his recent weight gain Reinforced low cholesterol diet Will recheck his labs and fasting lipids in 3 months for follow up (2) Benign essential hypertension: Code(s): I10 - Essential (primary) hypertension Plan: Reinforced low sodium diet - goal is systolic BP of 120 mm or less Continue Lisinopril 20 mg QD (3) Impaired fasting glucose: Code(s): R73.01 - Impaired fasting glucose Plan: HgbA1c was normal at 5.3% when last checked in June 2022 but cautioned that his FBS was elevated at over 130 mg/dl on his recent labs Patient admits to poor compliance with his diet lately and has been drinking a lot of sodas recently Reinforced low calorie/low carb diet Will recheck his FBS and HgbA1c in 3 months for follow up (4) Asthma: Code(s): J45.909 - Unspecified asthma, uncomplicated Qualifiers: Asthma severity: mild Asthma persistence: intermittent Asthma complication type: uncomplicated Qualified Code(s): J45.20 - Mild intermittent asthma, uncomplicated Plan: Stable Continue Flovent HFA 110 mcg 2 puffs BID and Ventolin HFA 2 puffs QID PRN (5) Chronic idiopathic constipation: Code(s): K59.04 - Chronic idiopathic constipation Plan: Continue Linzess 145 mcg QD and Senna 8.6 mg PRN Encouraged again on increased oral fluids and dietary fiber Follow up with GI as scheduled (6) Pain of left lateral upper thigh: Code(s): M79.652 - Pain in left thigh Plan: Is likely referred pain from his left thigh or lumbar spine X-rays of the lumbar spine done a few months ago revealed (+) degenerative disc disease Reinforced activity and weight-lifting restrictions (7) Left hip pain: Code(s): M25.552 - Pain in left hip Plan: Left hip x-rays done back in 2013 revealed findings of mild left hip dysplasia; repeat left hip x-rays done a few months ago revealed the same - (+) findings of left hip dysplasia Will refer him to orthopedics for further evaluation and management (8) Bilateral visual loss: Code(s): H54.3 - Unqualified visual loss, both eyes Plan: Most likely multifactorial, including retinal dystrophy Patient states that he has been seen by multiple eye doctors in the past and was reportedly told that he is currently legally blind but unsure as to what caused his loss of vision Was reportedly told at one point that there was nothing else they can do to salvage his vision Was [facility] and has been referred to a retina specialist for further evaluation - states that he was just seen last week; we have not yet received his OV report from ophthalmology at this time (9) Vitamin D deficiency: Code(s): E55.9 - Vitamin D deficiency, unspecified Plan: Continue Vitamin D3 2000 units QD (10) Hypercalcemia: Code(s): E83.52 - Hypercalcemia Plan: Mild - may be related to his low Vitamin D, which was just corrected His serum calcium level is back to normal on his recent labs (11) Elevated LFTs: Code(s): R79.89 - Other specified abnormal findings of blood chemistry Plan: Is most likely due to hepatosteatosis and should improve with weight loss Will recheck his LFTs in 3 months for follow up (12) History of gout: Code(s): Z87.39 - Personal history of other diseases of the musculoskeletal system and connective tissue Plan: Reports no acute gout flares lately Serum uric acid was still elevated at 9.5 on his labs done back in June 2022 Reinforced low purine diet Continue Indomethacin 50 mg TID PRN only for acute gout flares Continue Allopurinol 300 mg QD and Colchcine 0.6 mg BID (13) Depression: Code(s): F32.9 - Major depressive disorder, single episode, unspecified Qualifiers: Depression Type: major depressive disorder Major depression recurrence: recurrent Active/Remission status: currently active Major depression episode severity: unspecified Qualified Code(s): F33.9 - Major depressive disorder, recurrent, unspecified Plan: Continue Fluoxetine 20 mg QD and Seroquel 100 mg QHS Follow up with psychiatry as scheduled (14) Obesity (BMI 30-39.9): Code(s): E66.9 - Obesity, unspecified Plan: Reinforced diet/exercise as tolerated/lose weight Plan Follow up in 3 months Orders: Orders UA CC w/rflx Micro + Cult 3 Months R30.0 - Dysuria Vitamin D 25-OH Total 3 Months E55.9 - Vitamin D deficiency, unspecified Complete Blood Count Auto Diff 3 Months I10 - Essential (primary) hypertension Comprehensive [place]. Panel Fast 3 Months E78.00 - Pure hypercholesterolemia, unspecified Lipid Panel 3 Months E78.00 - Pure hypercholesterolemia, unspecified Hemoglobin A1c 3 Months R73.01 - Impaired fasting glucose TSH reflex Free T4 3 Months E78.00 - Pure hypercholesterolemia, unspecified Referrals Orthopedics Referral M25.552 - Pain in left hip Coding Level of Care Code Est Pt Level 4 (11199) Diagnoses Mixed hyperlipidemia E78.2 Benign essential hypertension I10 Impaired fasting glucose R73.01 Mild intermittent asthma without complication J45.20 Asthma severity: mild Asthma persistence: intermittent Asthma complication type: uncomplicated Chronic idiopathic constipation K59.04 Pain of left lateral upper thigh M79.652 Left hip pain M25.552 Bilateral visual loss H54.3 Vitamin D deficiency E55.9 Hypercalcemia E83.52 Elevated LFTs R79.89 History of gout Z87.39 Episode of recurrent major depressive disorder, unspecified depression episode severity F33.9 Depression Type: major depressive disorder Major depression recurrence: recurrent Active/Remission status: currently active Major depression episode severity: unspecified Obesity (BMI 30-39.9) E66.9 Additional Codes SUKHWINDER-7 Assessment Billing - SUKHWINDER-7 Assessment Tool: SUKHWINDER-7 Assessment 40044 ([id number])
== END 2023-03-12 16:16 | disposition home or self-care (01) ==
PROVIDERS: PCP Internal Medicine; Visit Provider Internal Medicine
DX: I10 Essential (primary) hypertension (principal); J45.20 Mild intermittent asthma, uncomplicated; E83.52 Hypercalcemia; Z87.39 Personal history of other diseases of the musculoskeletal system and connective tissue; F33.9 Major depressive disorder, recurrent, unspecified; E78.2 Mixed hyperlipidemia; R73.01 Impaired fasting glucose; K59.04 Chronic idiopathic constipation; M79.652 Pain in left thigh; M25.552 Pain in left hip; H54.3 Unqualified visual loss, both eyes
CPT/HCPCS: 99214

== ENCOUNTER 2023-04-30 12:26 | Outpatient (REF) | payer MEDICARE, MEDICAID, SELFPAY ==
--- NOTE | ~2023-04-30 | XR_ITS ---
EXAMINATION: XR PELVIS CLINICAL INFORMATION: Pain COMPARISON: 03/03/2023 left TECHNIQUE: AP view of the pelvis. FINDINGS: No fracture. Hip joint spaces are maintained. Alignment is anatomic. Sacroiliac joints and pubic symphysis are normal. No abnormal soft tissue calcifications. XR/XR pelvis 1-2V IMPRESSION: Normal pelvis.
== END 2023-04-30 12:27 | disposition home or self-care (01) ==
LOC: HO.HOSX 12:26
PROVIDERS: Visit Provider Orthopaedic Surgery
DX: M16.32 Unilateral osteoarthritis resulting from hip dysplasia, left hip (principal); H54.3 Unqualified visual loss, both eyes; Z87.39 Personal history of other diseases of the musculoskeletal system and connective tissue
CPT/HCPCS: 72170; 99202

== ENCOUNTER 2023-04-30 12:54 | Outpatient (AMB) | payer MEDICARE, MEDICAID, SELFPAY ==
--- NOTE | 2023-04-30 13:39 | A.OFFVIS_ITS ---
Intake Vital Signs 04/30/23 13:41 Height 6 ft 1.25 in Weight 273 lb BMI 35.8 Intake Visit Reasons: MOBILE DISC JOCKEY-pain in left hip Intake Note: Adam is a 42 year old male who presents today as a new patient with complaints of left hip. Patient reports that he has had pain in the left hip for quite some time now. He reports that he used to play basketball and took many falls on the left hip. Reports that he has had the hip dislocate before and has done PT for this. He has been using icy hot, which has been helping but has since become less effective. He explains that he had xrays done which he states shows arthritis in the back and he is unsure if this is where his pain is coming from. Allergies No Known Allergies Allergy (Verified 03/12/23 16:07) HPI MOBILE DISC JOCKEY-pain in left hip HPI Details Adam is a 42 year old man who presents with complaints of left hip pain. He has pain with daily activity, which he describes as constant. He says he walks with a limp and says his left leg feels hard some of the time. His pain has been present for several years. He used to play basketball and reports falling onto his left hip frequently. He has a hx of his dislocation which he says was managed with PT. He says his dislocation occurred in ~2008. He says he is partially blind, and he has fallen down the stairs before due to his hip. He finds some relief from using Icy Hot topical, but this is becoming less effective over time. He is unsure if his back OA is linked to his pain at all. [facility] Medical History Learning disability Retinal dystrophy Vitamin D deficiency Impaired fasting glucose Obesity (BMI 30-39.9) Depression History of gout Chronic idiopathic constipation Asthma Benign essential hypertension Chronic constipation MORENO (nonalcoholic steatohepatitis) Rectal bleeding Surgical History H/O removal of testicle History of shoulder surgery Family History Mother Hypertension Father No problems noted. Other Mental health problem Social History Household Members Other:: Sister Housing: House Alcohol intake: former Patient Tobacco Use Status: Never used Tobacco e-Cigarette/Vaping Use: Never Used Second Hand Smoke Exposure: No service: No Current occupational status: disabled Cognitive needs: No Hearing needs: No Vision needs: Yes Review of Systems Const All systems reviewed & are unremarkable except as noted in HPI and below Physical Exam Vital Signs: BMI result Body Mass Index 35.8 Const General: no acute distress, alert and awake Orientation/consciousness: patient oriented x3 HEENT Head: Yes normocephalic and Yes atraumatic Eyes EOM: EOMs intact bilaterally Resp Effort & Inspection: normal respiratory effort and able to speak in complete sentences Cardio Jugular venous distension: no JVD Skin General skin exam: turgor normal Rashes: no rashes Neuro General: patient oriented x3 Extrem Other: Left Hip: Left trendelenberg FUll paionless hip ROM ttp greater trochanter Psych Appearance: grossly normal Affect: normal affect Attitude: cooperative Results Reviewed Results Reviewed: I personally reviewed relevant radiographs 1. Redemonstration of previously described subtle uncovering of the left acetabulum felt to be suggestive of mild hip dysplasia. 2. Mild multilevel lumbar spondylosis most notable at L4-L5. 3. Transitional anatomy with likely partial sacralization of L5 vertebral body with sclerosis. Additional imaging with CT scan or MRI should be considered for better visualization as these modalities are much more sensitive for detection of fracture or other underlying pathology. 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 He has pain constantly, worse with activity, and he ambulates with antalgia. He has a hx of falls. He uses a topical cream for mild relief and denies any hx of injections. I discussed his diagnosis and treatment options. I recommend an intra-articualr injection. I cannot tell if his pain is intra-articular of not. His symptoms are non specific. He radiographs suggest early secondary OA. I sent a topical patch to his pharmacy. (2) Bilateral visual loss: Code(s): H54.3 - Unqualified visual loss, both eyes (3) History of gout: Code(s): Z87.39 - Personal history of other diseases of the musculoskeletal system and connective tissue Orders: Orders XR pelvis 1-2V Today M25.559 - Pain in unspecified hip Referrals Pain Management Referral M16.32 - Unilateral osteoarthritis resulting from hip dysplasia, left hip Medications: New hot/cold therapy aids (ThermaCare Joint Therapy pads) 1-2/ week as needed for left hip pain 12 ea 0RF M16.32 - Unilateral osteoarthritis resulting from hip dysplasia, left hip Coding Level of Care Code New Pt Level 4 (42864) Diagnoses 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
[2023-04-30 13:41] VITALS: BMI 35.8
== END 2023-04-30 14:33 | disposition home or self-care (01) ==
LOC: HO.HOS 12:54
PROVIDERS: PCP Internal Medicine; Visit Provider Orthopaedic Surgery
DX: M16.32 Unilateral osteoarthritis resulting from hip dysplasia, left hip (principal); H54.3 Unqualified visual loss, both eyes; Z87.39 Personal history of other diseases of the musculoskeletal system and connective tissue
CPT/HCPCS: 99204

== ENCOUNTER 2023-06-08 08:39 | Outpatient (REF) | payer MEDICARE, MEDICAID, SELFPAY ==
[2023-06-08 10:20] LABS: Basophils Percent Auto 0.9 % (0-2); Eosinophils Absolute Auto 0.1 X10*3/uL (0.0-0.4); Eosinophils Percent Auto 2.7 % (0-4); Hematocrit 44.8 % (42.0-52.0); Hemoglobin 15.3 g/dl (14.0-18.0); Imm Gran Abs Auto 0.01 X10*3/uL (0.00-0.03); Imm Gran Pct Auto 0.2 % (0.0-0.4); Lymphocytes Percent Auto 44.6 % (20-40); MANUAL DIFF FLAG NO; Mean Corpuscular HGB Conc 34.2 g/dl (31.0-36.0); Mean Corpuscular Hemoglobin 31.6 pg (27.0-33.0); Mean Corpuscular Volume 92.6 fL (80.0-98.0); Monocytes Absolute Auto 0.3 X10*3/uL (0.1-1.2); Monocytes Percent Auto 5.9 % (2-11); Neutrophils Percent Auto 45.7 % (45-73); Platelet Count 181 X10*3/uL (160-400); Red Blood Count 4.84 X10*6/uL (4.60-5.80); Red Cell Distribution Width 12.2 % (11.0-16.0); White Blood Count 4.4 X10*3/uL (4.8-10.8)
[2023-06-08 10:53] LABS: Estimated Average Glucose 128 mg/dL; Hemoglobin A1c % 6.1 % (<6.0)
[2023-06-08 10:58] LABS: Alanine Aminotransferase 53 U/L (0-40); Albumin Level 4.5 g/dL (3.5-5.0); Alkaline Phosphatase 75 U/L (39-117); Anion Gap 12 (12-20); Aspartate Amino Transferase 37 U/L (5-37); Bilirubin Total 0.8 mg/dL (0.0-1.0); Blood Urea Nitrogen 23 mg/dL (9-16); Calcium 9.8 mg/dL (8.4-10.2); Carbon Dioxide 29 mmol/L (22-29); Chloride 105 mmol/L (96-108); Cholesterol 190 mg/dL (<200); Estimated Glomerular Filt Rate > 60; Glucose Fasting 127 mg/dL (60-99); HDL Cholesterol 30 mg/dL (>40); LDL Cholesterol Calculated 119 mg/dL (<100); Potassium 4.6 mmol/L (3.3-5.1); Sodium 141 mmol/L (135-145); Total Protein 7.9 g/dL (6.5-8.0); Triglycerides 209 mg/dL (<150)
[2023-06-08 10:59] LABS: TSH reflex Free T4 1.21 uIU/mL (0.32-4.0); Vitamin D 25-OH Total 24.6 ng/mL (>30)
[2023-06-08 11:26] LABS: Appearance Urine Clear; Color Urine Dark Yellow; Glucose Urine UA Negative (Negative); Leukocyte Esterase Urine Trace (Negative); Nitrite Urine Negative (Negative); Specific Gravity - Urine 1.025 (1.005-1.025); UMIC TRIGGER UACC YES; Urine Blood Negative (Negative); Urine Ketones Trace mg/dL (Negative); Urine Protein Negative (Neg-Trace)
[2023-06-08 11:32] LABS: Bacteria Urine None Seen (None Seen); RBC Urine 0-2 /HPF (0-2); Squamous Epithelial Cell Urine 0-2 /HPF (0-2); WBC Urine 0-5 /HPF (0-5)
== END 2023-06-08 08:40 | disposition home or self-care (01) ==
LOC: HO.LAB 08:39
PROVIDERS: PCP Internal Medicine; Visit Provider Internal Medicine
DX: E78.00 Pure hypercholesterolemia, unspecified (principal); R73.01 Impaired fasting glucose; E55.9 Vitamin D deficiency, unspecified; I10 Essential (primary) hypertension; R30.0 Dysuria
CPT/HCPCS: 36415; 80053; 80061; 81001; 82306; 83036; 84443; 85025

== ENCOUNTER 2023-06-25 14:56 | Outpatient (AMB) | payer MEDICARE, MEDICAID, SELFPAY ==
--- NOTE | 2023-06-25 15:20 | A.OFFPC_ITS ---
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 Accompanied by: Self / Same As Patient Allergies No Known Allergies Allergy (Verified 06/25/23 16:00) Medication List - Last Reconciled 06/25/23 by Elieser Moreno MD allopurinol 300 mg PO DAILY 90 days amantadine HCl 100 mg PO baclofen 20 mg PO TID PRN 30 days cholecalciferol (vitamin D3) 50 mcg PO DAILY 90 days colchicine 0.6 mg PO BID 30 days docusate sodium (Colace) 100 mg PO DAILY fluoxetine 20 mg PO DAILY 90 days fluticasone propionate 100 mcg/actuation (Flovent Diskus) 1 inh inhalation BID hot/cold therapy aids (ThermaCare Cold Wrap Joint pads) 1-2/ week as needed for left hip pain indomethacin 50 mg PO TID PRN lidocaine 4% 1 patch topical DAILY PRN lidocaine 5% 3 patches topical Q24H PRN lisinopril 20 mg PO DAILY loratadine 10 mg PO DAILY methylcellulose (laxative) (Citrucel) 500 mg PO TID Mitigare (colchicine) 0.6 mg PO BID PRN 30 days NS mometasone 100 mcg/actuation (Asmanex HFA) 1 puff inhalation BID mupirocin 2% 1 appl topical BID 10 days quetiapine 100 mg PO BEDTIME risperidone 1 mg PO DAILY simethicone (Gas Relief (simethicone)) 125 mg PO TID-QID 30 days tizanidine 4 mg PO TID PRN 30 days tramadol 50 mg PO TID PRN 10 days Ventolin HFA 90 mcg/actuation (albuterol sulfate) 2 puffs PO Q6H PRN NS Tobacco use date assessed: 06/25/23 Dental Screening Dental Screen Date: 06/25/23 Did you have a dental visit in the last 12 months?: Yes Did you have a dental problem in the last 6 months where you did not have access to dental care?: No Was dental information given to patient?: Patient has dentist HPI hyperlipidemia, elevated LFTs, IFG HPI Details Patient comes in today for his follow up visit States that he feels okay Is aware that he has gained some weight over the holidays and admitted to poor compliance with his diet States that he has also been experiencing some gout flare ups lately He denies any headaches or dizziness Denies any chest pains, no SOB No nausea/vomiting, no abdominal pain No change in bowel habits noted Needs a couple of his Rx refilled Still has recurrent left hip pain - was seen by Dr. Tapia back in April 2023 but he requested for a referral to [facility] for a second opinion and he is scheduled to be seen by them next week Had his follow up labs done a few weeks ago - to discuss his results [facility], [facility] Medical History Learning disability Retinal dystrophy Vitamin D deficiency Impaired fasting glucose Obesity (BMI 30-39.9) Depression History of gout Chronic idiopathic constipation Asthma Benign essential hypertension Chronic constipation MORENO (nonalcoholic steatohepatitis) Rectal bleeding Surgical History H/O removal of testicle History of shoulder surgery Family History Mother Hypertension Father No problems noted. Other Mental health problem Social History Household Members Other:: Sister Housing: House Alcohol intake: former Patient Tobacco Use Status: Never used Tobacco e-Cigarette/Vaping Use: Never Used Second Hand Smoke Exposure: No service: No Current occupational status: disabled Cognitive needs: No Hearing needs: No Vision needs: Yes Questionnaire PHQ-9 Over the last 2 weeks, how often have you been bothered by any of the following problems? 1. Little interest or pleasure in doing things: not at all 2. Feeling down, depressed, or hopeless: nearly every day 3. Trouble falling or staying asleep, or sleeping too much: nearly every day 4. Feeling tired or having little energy: nearly every day 5. Poor appetite or overeating: nearly every day 6. Feeling bad about yourself - or that you are a failure or have let yourself or your family down: not at all 7. Trouble concentrating on things, such as reading the newspaper or watching television: nearly every day 8. Moving or speaking so slowly that other people could have noticed. Or the opposite - being so fidgety or restless that you have been moving around a lot more than usual: not at all 9. Thoughts that you would be better off or of hurting yourself in some way: not at all Total score: 15 Depression Screening Interpretation: Positive Depression Screening Follow-up: Existing condition and In treatment Depression Screening Done: Yes 75055 - PHQ-9 Billing: Yes Source: Developed by Drs. Luis Simon, Virgen Davis, Florencio Trevizo and colleagues, with an educational heber from [employer]. Thrive Questionnaire Date Thrive assessed: 06/25/23 I am a: Patient What is your living situation today?: I have a steady place to live Within the past 12 months, did the food you bought not last and you didn't have the money to get more?: Never true Within the past 12 months, did you worry whether your food would run out before you got money to buy more?: Never true Do you have trouble paying for medicines?: No Do you have trouble getting transportation to medical appointments?: No Do you have trouble paying your heating and electricity bill?: No Do you have trouble taking care of your child, family member or friend?: No Do you have trouble with day-to-day activities such as bathing, preparing meals, shopping, managing finances, etc.?: No Are you currently unemployed and looking for a job?: No Are you interested in more education?: No Please select the resources that you would like help with: None Currently or been in a relationship where the following occur: no concerns reported AUDIT C Alcohol Use Questionnaire (AUDIT-C) 1. How often do you have a drink containing alcohol?: Never 3. How often do you have six or more drinks on one occasion?: Never Total Score: 0 Score Reviewed/Action Taken: Yes SUKHWINDER-7 AMB Questionnaire SUKHWINDER-7 Date SUKHWINDER - 7 assessed: 06/25/23 Feeling nervous, anxious, or on edge: 1 = Several days Not being able to stop or control worryin = Not at all Worrying too much about different things: 0 = Not at all Trouble relaxin = Not at all Being so restless that it is hard to sit still: 0 = Not at all Becoming easily annoyed or irritable: 0 = Not at all Feeling afraid as if something awful might happen: 0 = Not at all Total SUKHWINDER-7 score (0-4 normal; 5-9 mild; 10-14 moderate; 15-21 severe): 1 Source: Developed by Drs. Luis Simon, Virgen Davis, Florencio Trevizo and colleagues, with an educational heber from [employer]. SUKHWINDER-7 Assessment Billing SUKHWINDER-7 Assessment Tool: SUKHWINDER-7 Assessment 26323 Review of Systems Const Denies chills, Denies fatigue, Denies fever(s) and Denies headache(s) Eyes Reports blurry vision (patient is reportedly legally blind) and Denies eye pain ENT Denies dysphagia, Denies dizziness, Denies otalgia, Denies headache(s), Denies neck pain, Denies odynophagia and Denies sore throat Card Denies chest pain, Denies palpitations and Denies dyspnea Resp Denies cough, Denies dyspnea and Denies wheezing GI Denies abdominal pain, Reports constipation (better controlled on Rx), Denies dysphagia, Denies heartburn, Denies diarrhea, Denies nausea, Denies odynophagia and Denies vomiting Denies dysuria, Denies nocturia and Denies urinary frequency Musc Details: (+) recurrent pain over the left proximal thigh Denies back pain, Reports arthralgias (left hip - chronic) and Denies neck pain Skin/Breast Denies rash Neuro Denies dizziness and Denies headache(s) Endo Denies fatigue and Denies palpitations Aller/Immun Denies wheezing Physical exam (Primary Care) Vital Signs: Last Vital Signs Pulse 90 06/25/23 15:21 BP 132/80 06/25/23 15:21 Pulse Ox 97 06/25/23 15:21 Oxygen Delivery Method Room Air 06/25/23 15:21 BMI result Body Mass Index 36.2 Tobacco/Smoking Status: Tobacco use Status Tobacco use date assessed 06/25/23 06/25/23 15:29 Patient Tobacco Use Status Never used Tobacco 06/25/23 15:29 e-Cigarette/Vaping Use Never Used 06/25/23 15:29 PHQ-9: PHQ-9 Score PHQ-9: Total score 15 06/25/23 15:29 Depression Screening Interpretation: Positive Depression Screening Follow-up: Existing condition and In treatment Thrive Assessment: Date of Thrive Assessment Date Thrive assessed 06/25/23 06/25/23 15:29 Currently or been in a relationship where the following occur: no concerns reported Const General: no acute distress and alert HENMT Ears: TM's normal bilaterally and EAC's normal Throat: Yes posterior oropharynx normal and Yes tonsils normal (no TP congestion noted) Neck Neck: Yes no lymphadenopathy and Yes supple Resp Auscultation: clear to auscultation bilaterally, no rales and no wheezes Cardio Rate: regular rate Rhythm: regular rhythm Heart sounds: no murmurs GI Palpation (GI): Soft to palpation and nontender Auscultation: normal bowel sounds Back/Spine/Pelvis Thoracic/Lumbar Spine: thoracic and lumbar spine normal to inspection Skin Rashes: no rashes Extrem General: Yes no clubbing, cyanosis or edema Left lower extremity: hip/thigh Details: tenderness Location: of the hip Location: anterolaterally Results Reviewed Results Reviewed: Laboratory Tests 06/08/23 06/08/23 06/08/23 08:43 09:00 09:00 WBC 4.4 L Hgb 15.3 Hct 44.8 Plt Count 181 Sodium Potassium Creatinine Estimated GFR Fasting Glucose Hemoglobin A1c % Calcium AST ALT Triglycerides Cholesterol LDL Cholesterol, Calc HDL Cholesterol 25-OH Vitamin D Total TSH Ur Specific [place] 1.025 Urine Protein Negative Urine Glucose (UA) Negative Urine Blood Negative Urine Nitrite Negative Ur Leukocyte Esterase Trace H 06/08/23 06/08/23 09:04 09:04 WBC Hgb Hct Plt Count Sodium 141 Potassium 4.6 Creatinine 1.24 Estimated GFR > 60 Fasting Glucose 127 H Hemoglobin A1c % 6.1 H Calcium 9.8 D AST 37 ALT 53 H Triglycerides 209 H Cholesterol 190 LDL Cholesterol, Calc 119 H HDL Cholesterol 30 L 25-OH Vitamin D Total 24.6 L TSH 1.21 Ur Specific [place] Urine Protein Urine Glucose (UA) Urine Blood Urine Nitrite Ur Leukocyte Esterase Assessment and Plan Assessment & Plan (1) Mixed hyperlipidemia: Code(s): E78.2 - Mixed hyperlipidemia Plan: Results of his labs done a few weeks ago reviewed and discussed with patient - advised that his total and LDL cholesterol numbers have increased again significantly from previous Reinforced low cholesterol diet Will recheck his labs and fasting lipids in 3 months for follow up (2) Benign essential hypertension: Code(s): I10 - Essential (primary) hypertension Plan: Reinforced low sodium diet - goal is systolic BP of 120 mm or less Continue Lisinopril 20 mg QD (3) Impaired fasting glucose: Code(s): R73.01 - Impaired fasting glucose Plan: HgbA1c is now elevated at 6.1% on his labs done a couple of weeks ago; HgbA1c was normal at 5.3% when last checked in June 2022 - have cautioned that his places him now in the bordeline diabetes category Patient admits to poor compliance with his diet lately and has been drinking a lot of sodas recently Reinforced low calorie/low carb diet Will recheck his FBS and HgbA1c in 3 months for follow up - advised that he may need to be started on Rx for diabetes if he cannot get his glycemic control improved over the next few months (4) Asthma: Code(s): J45.909 - Unspecified asthma, uncomplicated Qualifiers: Asthma severity: mild Asthma persistence: intermittent Asthma complication type: uncomplicated Qualified Code(s): J45.20 - Mild intermittent asthma, uncomplicated Plan: Stable Continue Flovent HFA 110 mcg 2 puffs BID and Ventolin HFA 2 puffs QID PRN (5) Chronic idiopathic constipation: Code(s): K59.04 - Chronic idiopathic constipation Plan: Continue Linzess 145 mcg QD and Senna 8.6 mg PRN Encouraged again on increased oral fluids and dietary fiber Follow up with GI as scheduled (6) Pain of left lateral upper thigh: Code(s): M79.652 - Pain in left thigh Plan: Is likely referred pain from his left thigh or lumbar spine X-rays of the lumbar spine done a few months ago revealed (+) degenerative disc disease Reinforced activity and weight-lifting restrictions (7) Left hip pain: Code(s): M25.552 - Pain in left hip Plan: Left hip x-rays done back in 2013 revealed findings of mild left hip dysplasia; repeat left hip x-rays done a few months ago revealed the same - (+) findings of left hip dysplasia He was seen by [facility] a couple of months ago but he requested for a referral to [facility] for a second opinion and he is scheduled to see them next week (8) Bilateral visual loss: Code(s): H54.3 - Unqualified visual loss, both eyes Plan: Most likely multifactorial, including retinal dystrophy Patient states that he has been seen by multiple eye doctors in the past and was reportedly told that he is currently legally blind but unsure as to what caused his loss of vision Was reportedly told at one point that there was nothing else they can do to salvage his vision [facility] and has been referred to a retina specialist for further evaluation - states that he was seen a few months ago but we have not yet received his OV report from ophthalmology at this time (9) Vitamin D deficiency: Code(s): E55.9 - Vitamin D deficiency, unspecified Plan: Continue Vitamin D3 2000 units QD (10) Hypercalcemia: Code(s): E83.52 - Hypercalcemia Plan: Mild - may be related to his low Vitamin D, which was just corrected His serum calcium level has remained normal on his recent labs (11) Elevated LFTs: Code(s): R79.89 - Other specified abnormal findings of blood chemistry Plan: Is most likely due to hepatosteatosis and should improve with weight loss Will recheck his LFTs in 3 months for follow up (12) History of gout: Code(s): Z87.39 - Personal history of other diseases of the musculoskeletal system and connective tissue Plan: Serum uric acid was still elevated at 8.1 on his labs done back in February 2023 Reinforced low purine diet Continue Indomethacin 50 mg TID PRN only for acute gout flares Continue Allopurinol 300 mg QD and Colchicine 0.6 mg BID PRN (13) Depression: Code(s): F32.9 - Major depressive disorder, single episode, unspecified Qualifiers: Depression Type: major depressive disorder Major depression recurrence: recurrent Active/Remission status: currently active Major depression episode severity: unspecified Qualified Code(s): F33.9 - Major depressive disorder, recurrent, unspecified Plan: Continue Fluoxetine 20 mg QD and Seroquel 100 mg QHS Follow up with psychiatry as scheduled (14) Obesity (BMI 30-39.9): Code(s): E66.9 - Obesity, unspecified Plan: Reinforced diet/exercise as tolerated/lose weight Plan Follow up in 3 months Orders: Orders Uric Acid 3 Months M10.9 - Gout, unspecified Complete Blood Count Auto Diff 3 Months I10 - Essential (primary) hypertension Lipid Panel 3 Months E78.00 - Pure hypercholesterolemia, unspecified Hemoglobin A1c 3 Months R73.01 - Impaired fasting glucose Comprehensive [place]. Panel Fast 3 Months E78.00 - Pure hypercholesterolemia, unspecified Medications: Refilled allopurinol 300 mg PO DAILY 90 days 90 tabs 1RF Coding Level of Care Code Est Pt Level 4 (45392) Diagnoses Mixed hyperlipidemia E78.2 Benign essential hypertension I10 Impaired fasting glucose R73.01 Mild intermittent asthma without complication J45.20 Asthma severity: mild Asthma persistence: intermittent Asthma complication type: uncomplicated Chronic idiopathic constipation K59.04 Pain of left lateral upper thigh M79.652 Left hip pain M25.552 Bilateral visual loss H54.3 Vitamin D deficiency E55.9 Hypercalcemia E83.52 Elevated LFTs R79.89 History of gout Z87.39 Episode of recurrent major depressive disorder, unspecified depression episode severity F33.9 Depression Type: major depressive disorder Major depression recurrence: recurrent Active/Remission status: currently active Major depression episode severity: unspecified Obesity (BMI 30-39.9) E66.9 Additional Codes SUKHWINDER-7 Assessment Billing - SUKHWINDER-7 Assessment Tool: SUKHWINDER-7 Assessment 24550 ([id number])
[2023-06-25 15:21] VITALS: BP 132/80; PULSE 90; O2SAT 97; BMI 36.2
== END 2023-06-25 16:13 | disposition home or self-care (01) ==
PROVIDERS: PCP Internal Medicine; Visit Provider Internal Medicine
DX: E78.2 Mixed hyperlipidemia (principal); I10 Essential (primary) hypertension; R73.01 Impaired fasting glucose; J45.20 Mild intermittent asthma, uncomplicated; K59.04 Chronic idiopathic constipation; M79.652 Pain in left thigh; M25.552 Pain in left hip; H54.3 Unqualified visual loss, both eyes; E55.9 Vitamin D deficiency, unspecified; E83.52 Hypercalcemia; R79.89 Other specified abnormal findings of blood chemistry; Z87.39 Personal history of other diseases of the musculoskeletal system and connective tissue
CPT/HCPCS: 96127; 99214

== ENCOUNTER 2023-08-01 08:12 | Outpatient (REF) | payer MEDICARE, MEDICAID, SELFPAY ==
--- NOTE | ~2023-08-01 | US_ITS ---
EXAMINATION: US ABDOMEN LIMITED WITH LIVER ELASTOGRAPHY CLINICAL INFORMATION: Fatty liver. COMPARISON: None available. TECHNIQUE: Real-time imaging of the abdominal viscera. Noninvasive ultrasound liver fibrosis assessment is performed using Donald ElastPQ point quantification shear wave elastography (2D-SWE) with a C5-2 MHz transducer. Multiple elastography samples are obtained. FINDINGS: PANCREAS: Poorly visualized due to overlapping bowel gas. LIVER: The liver demonstrates normal size, contour and increased echogenicity. No focal lesion or intrahepatic biliary duct dilatation. The right lobe measures 16.4 cm in length. The left lobe measures 9.8 cm in length. Portal flow is towards the liver (hepatopetal). Shear wave liver elastography median stiffness is 1.60 m/s (reference: normal median stiffness is 1.3 m/s or less). IQR/median stiffness to assess sampling precision is 0.12 (reference: good quality data set is IQR/median stiffness of 0.15 or less). GALLBLADDER: Normal. The gallbladder is physiologically distended without evidence of stones, sludge, polyps, wall thickening or pericholecystic fluid. COMMON BILE DUCT: Normal in caliber measuring 0.3 cm in diameter. 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 No hydronephrosis. No renal calculi or focal parenchymal lesions. The kidney measures 13.5 cm in maximum dimension. FREE FLUID: None. US/US abdomen patton w elastography IMPRESSION: 1. There is generalized increase in hepatic echotexture, consistent with fatty infiltration or hepatocellular disease. Please correlate clinically. No focal hepatic mass or intrahepatic biliary dilatation is seen. 2. Liver elastography: In the absence of other known clinical signs, measurements rule out compensated advanced chronic liver disease. If there are known clinical signs, further testing may be needed for confirmation. 3. The right kidney shows a malrotated, horseshoe configuration. This would be better demonstrated with cross-sectional imaging, if clinically relevant. 4. Technically limited ultrasound examination of the pancreas. REFERENCE: Society of Radiologists in Ultrasound Liver Stiffness Thresholds (2020): LIVER STIFFNESS THRESHOLDS: *Liver Stiffness equal or less than 1.3 m/s: High probability of being normal. *Liver Stiffness less than 1.7 m/s: In the absence of other known clinical signs, rules out compensated advanced chronic liver disease. *Liver Stiffness 1.7-2.1 m/s: Suggestive of compensated advanced chronic liver disease but need further test for confirmation. *Liver Stiffness over 2.1 m/s: Rules in compensated advanced chronic liver disease. *Liver Stiffness over 2.4 m/s: Suggestive of clinically significant portal hypertension. QUALITY OF DATA SET: *IQR/Median value equal or less than 0.15 implies a quality data set. *IQR/Median value over 0.15 implies a poor quality data set. SIGNIFICANT CHANGE FROM PRIOR EXAM: Significant change if liver stiffness measurement is 10% or greater from prior exam. OTHER CONSIDERATIONS: The stage of liver fibrosis may be overestimated in the setting of acute hepatitis, liver inflammation, elevated liver function tests, hepatic vascular congestion, obstructive cholestasis, non-fasting state, and infiltrative diseases such as amyloidosis and lymphoma. In some patients with NAFLD, the liver stiffness thresholds for compensated advanced chronic liver disease may be lower. In causes other than viral hepatitis and NAFLD, liver stiffness thresholds are not well established.
[2023-08-01 08:24] LABS: MANUAL DIFF FLAG NO
[2023-08-01 08:40] LABS: Basophils Percent Auto 0.7 % (0-2); Eosinophils Absolute Auto 0.1 X10*3/uL (0.0-0.4); Eosinophils Percent Auto 3.5 % (0-4); Hematocrit 43.2 % (42.0-52.0); Imm Gran Abs Auto 0.01 X10*3/uL (0.00-0.03); Imm Gran Pct Auto 0.2 % (0.0-0.4); Lymphocytes Absolute Auto 1.9 X10*3/uL (1.2-4.9); Lymphocytes Percent Auto 46.7 % (20-40); Mean Corpuscular HGB Conc 34.7 g/dl (31.0-36.0); Mean Corpuscular Hemoglobin 31.6 pg (27.0-33.0); Mean Corpuscular Volume 91.1 fL (80.0-98.0); Mean Platelet Volume 9.8 fL (9.4-12.4); Monocytes Absolute Auto 0.3 X10*3/uL (0.1-1.2); Monocytes Percent Auto 6.2 % (2-11); Neutrophils Absolute Auto 1.7 x10*3/uL (2.0-8.3); Neutrophils Percent Auto 42.7 % (45-73); Platelet Count 161 X10*3/uL (160-400); Red Blood Count 4.74 X10*6/uL (4.60-5.80); Red Cell Distribution Width 12.7 % (11.0-16.0)
[2023-08-01 08:47] LABS: Estimated Average Glucose 114 mg/dL; Hemoglobin A1c % 5.6 % (<6.0)
[2023-08-01 08:53] LABS: Alanine Aminotransferase 69 U/L (0-40); Albumin Level 4.5 g/dL (3.5-5.0); Alkaline Phosphatase 73 U/L (39-117); Anion Gap 11 (12-20); Aspartate Amino Transferase 41 U/L (5-37); Blood Urea Nitrogen 17 mg/dL (9-16); Calcium 9.8 mg/dL (8.4-10.2); Carbon Dioxide 29 mmol/L (22-29); Chloride 106 mmol/L (96-108); Cholesterol 181 mg/dL (<200); Estimated Glomerular Filt Rate > 60; Glucose Fasting 131 mg/dL (60-99); HDL Cholesterol 30 mg/dL (>40); LDL Cholesterol Calculated 109 mg/dL (<100); Potassium 4.3 mmol/L (3.3-5.1); Sodium 142 mmol/L (135-145); Total Protein 7.7 g/dL (6.5-8.0); Triglycerides 210 mg/dL (<150); Uric Acid 7.5 mg/dL (3.4-7.0)
[2023-08-01 09:49] LABS: Appearance Urine Clear; Color Urine Yellow; Glucose Urine UA Negative (Negative); Leukocyte Esterase Urine Negative (Negative); Nitrite Urine Negative (Negative); PH 5.5 (5.0-9.0); Specific Gravity - Urine 1.025 (1.005-1.025); Urine Blood Negative (Negative); Urine Ketones Trace mg/dL (Negative); Urine Protein Negative (Neg-Trace)
== END 2023-08-01 08:13 | disposition home or self-care (01) ==
LOC: HO.US 08:12
PROVIDERS: PCP Internal Medicine; Visit Provider Physician Assistant
DX: R30.0 Dysuria (principal); I10 Essential (primary) hypertension; E78.00 Pure hypercholesterolemia, unspecified; M10.9 Gout, unspecified; R73.01 Impaired fasting glucose; K76.0 Fatty (change of) liver, not elsewhere classified
CPT/HCPCS: 36415; 76705; 76981; 80053; 80061; 81003; 83036; 84550; 85025

== ENCOUNTER 2023-08-13 13:50 | Outpatient (AMB) | payer MEDICARE, MEDICAID, SELFPAY ==
--- NOTE | 2023-08-13 13:52 | MHC.OFFVIS ---
Intake Vital Signs 08/13/23 13:57 Height 6 ft 1.5 in Weight 271 lb 2.697 oz BMI 35.3 BP 142/90 H Blood Pressure Location Lt brachial Position Sitting Pulse 101 H Intake Visit Reasons: r/s from 07/02 Intake Note: Patient is seen in office for ultrasound results. Pt c/o: here for results, no concerns at the time of visit Educational Aid Required: No Accompanied by: Self / Same As Patient Allergies No Known Allergies Allergy (Verified 08/13/23 14:05) Medication List - Last Reconciled 08/13/23 by Carolina Murphy PA-C allopurinol 300 mg PO DAILY 90 days amantadine HCl 100 mg PO baclofen 20 mg PO TID PRN 30 days cholecalciferol (vitamin D3) 50 mcg PO DAILY 90 days colchicine 0.6 mg PO BID 30 days docusate sodium (Colace) 100 mg PO DAILY fluoxetine 20 mg PO DAILY 90 days fluticasone propionate 100 mcg/actuation (Flovent Diskus) 1 inh inhalation BID hot/cold therapy aids (ThermaCare Cold Wrap Joint pads) 1-2/ week as needed for left hip pain indomethacin 50 mg PO TID PRN lidocaine 4% 1 patch topical DAILY PRN lidocaine 5% 3 patches topical Q24H PRN lisinopril 20 mg PO DAILY loratadine 10 mg PO DAILY methylcellulose (laxative) (Citrucel) 500 mg PO TID Mitigare (colchicine) 0.6 mg PO BID PRN 30 days NS mometasone 100 mcg/actuation (Asmanex HFA) 1 puff inhalation BID mupirocin 2% 1 appl topical BID 10 days nabumetone 750 mg PO BID PRN quetiapine 100 mg PO BEDTIME risperidone 1 mg PO DAILY simethicone (Gas Relief (simethicone)) 125 mg PO TID-QID 30 days tizanidine 4 mg PO TID PRN 30 days tramadol 50 mg PO TID PRN 10 days Ventolin HFA 90 mcg/actuation (albuterol sulfate) 2 puffs PO Q6H PRN NS HPI HPI Comments History of Present Illness Details Pleasant 41-year-old male NAFLD-last seen September 2022 here for follow-up- he says he is feeling very well- We again reviewed dietary lifestyle changes- he has made dietary modifications- stopping rice, chips and candy- 7 pound wt loss- he is happy about Discussed Maintaining weight gain, abstaining from alcohol, good cholesterol and glucose control He has Maintain high-fiber diet,bowels normal no further constipation- happy about that Reviewed labs- HgA1C- 5.9 He has a nausea, vomiting, hematemesis, hematochezia, abdominal pain, fever or chills PFSH Medical History Learning disability Retinal dystrophy Vitamin D deficiency Impaired fasting glucose Obesity (BMI 30-39.9) Depression History of gout Chronic idiopathic constipation Asthma Benign essential hypertension Chronic constipation MORENO (nonalcoholic steatohepatitis) Rectal bleeding Surgical History H/O removal of testicle History of shoulder surgery Family History Mother Hypertension Father No problems noted. Other Mental health problem Social History Household Members Other:: Sister Housing: House Alcohol intake: former Patient Tobacco Use Status: Never used Tobacco e-Cigarette/Vaping Use: Never Used Second Hand Smoke Exposure: No service: No Current occupational status: disabled Cognitive needs: No Hearing needs: No Vision needs: Yes Review of Systems Const Details: All systems reviewed and are negative Constipation resolved with consistent bowel regimen maintaining high-fiber Physical Exam Vital Signs: Last Vital Signs Pulse 101 H 08/13/23 13:57 BP 142/90 H 08/13/23 13:57 BMI result Body Mass Index 35.3 Const General: cooperative, healthy appearing and comfortable Nutritional Appearance: overweight Orientation/consciousness: patient oriented x3 Limitations: no limitations Eyes Sclerae: sclerae normal Resp Effort & Inspection: normal respiratory effort and able to speak in complete sentences Auscultation: clear to auscultation bilaterally, no rales, no rhonchi and no wheezes Cardio Rate: regular rate Rhythm: regular rhythm Heart sounds: S1 normal heart sound present and S2 normal heart sound present GI Palpation (GI): Soft to palpation and nontender Auscultation: normal bowel sounds Skin General skin exam: no rashes or lesions noted Neuro General: patient oriented x3 Extrem General: Yes full ROM Psych Appearance: grossly normal and well kempt Mental Status: mental status grossly normal Speech and movement: Clear speech present Affect: normal affect Attitude: cooperative Thought process: Normal thought process present Thought content: Normal thought content present Insight: Good insight present (Psych) Results Reviewed Results Reviewed: US/US abdomen patton w elastography IMPRESSION: 1. There is generalized increase in hepatic echotexture, consistent with fatty infiltration or hepatocellular disease. Please correlate clinically. No focal hepatic mass or intrahepatic biliary dilatation is seen. 2. Liver elastography: In the absence of other known clinical signs, measurements rule out compensated advanced chronic liver disease. If there are known clinical signs, further testing may be needed for confirmation. 3. The right kidney shows a malrotated, horseshoe configuration. This would be better demonstrated with cross-sectional imaging, if clinically relevant Assessment & Plan Assessment & Plan (1) Chronic idiopathic constipation: Comment: Ronnie 42-year-old male-many questions answered to his satisfaction, Very happy progress he is made being able to maintain consistent bowel pattern Code(s): K59.04 - Chronic idiopathic constipation Plan: Continue with consistent bowel regimen Maintain high-fiber diet (2) Obesity: Comment: Down about 7 lb intentionally, he feels motivated to get it have better health habits Code(s): E66.9 - Obesity, unspecified Plan: Continue with dietary modifications (3) NAFLD (nonalcoholic fatty liver disease): Code(s): K76.0 - Fatty (change of) liver, not elsewhere classified Plan: Reviewed plan good weight, glucose and cholesterol control Abstain from alcohol Will update labs Orders: Orders ESTER Reflex Titer and Pattern 2 Months R74.01 - Elevation of levels of liver transaminase levels Alpha 1 Anti-trypsin 2 Months R74.01 - Elevation of levels of liver transaminase levels Hepatitis A,B,C Profile 2 Months R79.89 - Other specified abnormal findings of blood chemistry Mitochondrial Antibody 2 Months R74.01 - Elevation of levels of liver transaminase levels Smooth Muscle Antibody 2 Months R74.8 - Abnormal levels of other serum enzymes Patient Instructions: Ronnie 42-year-old male with NAFLD-in correlate constipation now resolved with consistent bowel regimen and maintain high-fiber diet Reviewed plan of care-he will continue dietary modifications avoid weight gain, good cholesterol and glucose control We will update his labs See him back in follow-up Encouraged to call with any questions or concerns Coding Level of Care Code Tele Est Pt Level 3 (04943) Diagnoses Chronic idiopathic constipation K59.04 Obesity E66.9 NAFLD (nonalcoholic fatty liver disease) K76.0 Time Spent (min) 30
[2023-08-13 13:57] VITALS: BP 142/90; PULSE 101; BMI 35.3
== END 2023-08-13 15:13 | disposition home or self-care (01) ==
PROVIDERS: PCP Internal Medicine; Visit Provider Physician Assistant
DX: K59.04 Chronic idiopathic constipation (principal); K76.0 Fatty (change of) liver, not elsewhere classified; E66.9 Obesity, unspecified; Z68.35 Body mass index [BMI] 35.0-35.9, adult
CPT/HCPCS: 99213

== ENCOUNTER → 2023-08-13 13:50 | Outpatient (BNVA) | payer MEDICARE, MEDICAID, SELFPAY | PROVIDERS: PCP Internal Medicine; Visit Provider Physician Assistant | DX: K59.04 Chronic idiopathic constipation (principal); E66.9 Obesity, unspecified; K76.0 Fatty (change of) liver, not elsewhere classified; Z68.35 Body mass index [BMI] 35.0-35.9, adult | CPT/HCPCS: 99212 ==

== ENCOUNTER 2023-12-03 07:51 | Outpatient (REF) | payer MEDICARE, MEDICAID, SELFPAY ==
[2023-12-03 09:07] LABS: HBS Num1 161.81 mIU/mL (0-7.99); HBsAGNum1 0.29 S/CO (0.00-0.99); Hepatitis A Antibody IgM 0.16 Index (0-0.79); Hepatitis B Core Antibody Nonreactive (Nonreactive); Hepatitis B Surface Antigen Negative (Negative); ~HepC Num1 0.07 S/CO (0.00-0.79); ~Hepatitis A Antibody IgM Nonreactive (Nonreactive); ~Hepatitis B Surface Antibody REACTIVE (Nonreactive); ~Hepatitis C Antibody Nonreactive (Nonreactive)
[2023-12-04 12:58] LABS: Alpha 1 Anti-trypsin 145 mg/dL (83-199)
[2023-12-05 13:08] LABS: Anti Nuclear Antibody Screen NEGATIVE (NEGATIVE)
[2023-12-06 10:03] LABS: Mitochondrial Antibodies NEGATIVE (NEGATIVE)
[2023-12-08 17:57] LABS: Smooth Muscle Antibody <20 U (<20)
== END 2023-12-03 07:52 | disposition home or self-care (01) ==
LOC: HO.LAB 07:51
PROVIDERS: PCP Internal Medicine; Visit Provider Physician Assistant
DX: R74.01 Elevation of levels of liver transaminase levels (principal); R79.89 Other specified abnormal findings of blood chemistry; R74.8 Abnormal levels of other serum enzymes
CPT/HCPCS: 36415; 82103; 86015; 86038; 86381; 86704; 86706; 86709; 86803; 87340

== ENCOUNTER 2024-01-01 13:01 | Outpatient (AMB) | payer MEDICARE, MEDICAID, SELFPAY ==
--- NOTE | 2024-01-01 13:07 | MHC.PC.OV ---
Vital Signs 01/01/24 13:08 Height 6 ft 1.5 in Weight 258 lb BMI 33.6 BP 120/80 Blood Pressure Location Lt brachial Position Sitting Pulse 95 Pulse Source Pulse Oximeter Pulse Oximetry (%) 96 Oxygen Delivery Method Room Air Intake Visit Reasons: hyperlipidemia, HTN, gout, IFG Intake Note: Patient is here to follow up on HLD, HTN, Gout, IFG. Per pt he was in [facility] ED on 12/19/23 for Gout. 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 Accompanied by: Sister Allergies No Known Allergies Allergy (Verified 01/01/24 13:53) Medication List - Last Reconciled 01/01/24 by Elieser Moreno MD allopurinol 300 mg PO DAILY 90 days amantadine HCl 100 mg PO DAILY baclofen 20 mg PO TID PRN 30 days cholecalciferol (vitamin D3) 50 mcg PO DAILY 90 days colchicine 0.6 mg PO BID 30 days docusate sodium (Colace) 100 mg PO DAILY fluoxetine 20 mg PO DAILY 90 days fluticasone propionate 100 mcg/actuation (Flovent Diskus) 1 inh inhalation BID hot/cold therapy aids (ThermaCare Cold Wrap Joint pads) 1-2/ week as needed for left hip pain lidocaine 4% 1 patch topical DAILY PRN lidocaine 5% 3 patches topical Q24H PRN lisinopril 20 mg PO DAILY loratadine 10 mg PO DAILY methylcellulose (laxative) (Citrucel) 500 mg PO TID Mitigare (colchicine) 0.6 mg PO BID PRN 30 days NS mometasone 100 mcg/actuation (Asmanex HFA) 1 puff inhalation BID mupirocin 2% 1 appl topical BID 10 days naproxen 500 mg PO BID quetiapine 100 mg PO BEDTIME risperidone 1 mg PO DAILY simethicone (Gas Relief (simethicone)) 125 mg PO TID-QID 30 days tizanidine 4 mg PO TID PRN 30 days tramadol 50 mg PO TID PRN 10 days Ventolin HFA 90 mcg/actuation (albuterol sulfate) 2 puffs PO Q6H PRN NS Tobacco use date assessed: 01/01/24 Dental Screening Dental Screen Date: 06/25/23 HPI hyperlipidemia, HTN, gout, IFG HPI Details Patient comes in today for his follow up visit States that he currently feels okay He went to the ER at [facility] a couple of weeks ago on 12/19/2023 apparently for an acute gout flare up and was prescribed some Naproxen, which he states helped a lot States that his gout flare up eventually subsided and has not recurred since He denies any headaches or dizziness Denies any chest pains, no increased shortness of breath No nausea/ vomiting, no abdominal pain No change in bowel habits noted Needs a couple of his Rx refilled He last had his follow up labs done back in Jul 2023 [facility] Medical History (Updated 01/06/24 @ 21:28 by Elieser Moreno MD) Gout Learning disability Retinal dystrophy Vitamin D deficiency Impaired fasting glucose Obesity (BMI 30-39.9) Depression History of gout Chronic idiopathic constipation Asthma Benign essential hypertension Chronic constipation MORENO (nonalcoholic steatohepatitis) Rectal bleeding Surgical History H/O removal of testicle History of shoulder surgery Family History Mother Hypertension Father No problems noted. Other Mental health problem Social History Household Members Other:: Sister Housing: House Alcohol intake: former Patient Tobacco Use Status: Never used Tobacco e-Cigarette/Vaping Use: Never Used Second Hand Smoke Exposure: No service: No Current occupational status: disabled Cognitive needs: No Hearing needs: No Vision needs: Yes Questionnaire Thrive Questionnaire Date Thrive assessed: 06/25/23 SUKHWINDER-7 AMB Questionnaire SUKHWINDER-7 Date SUKHWINDER - 7 assessed: 06/25/23 Source: Developed by Drs. Luis Simon, Virgen Davis, Florencio Trevizo and colleagues, with an educational heber from [employer]. Review of Systems Const Denies chills, Denies fatigue, Denies fever(s) and Denies headache(s) Eyes Reports blurry vision (patient is reportedly legally blind) and Denies eye pain ENT Denies dysphagia, Denies dizziness, Denies otalgia, Denies headache(s), Denies neck pain, Denies odynophagia and Denies sore throat Card Denies chest pain, Denies palpitations and Denies dyspnea Resp Denies cough, Denies dyspnea and Denies wheezing GI Denies abdominal pain, Reports constipation (better controlled on Rx), Denies dysphagia, Denies heartburn, Denies diarrhea, Denies nausea, Denies odynophagia and Denies vomiting Denies dysuria, Denies nocturia and Denies urinary frequency Musc Details: (+) recurrent pain over the left proximal thigh Denies back pain, Reports arthralgias (left hip - chronic) and Denies neck pain Skin/Breast Denies rash Neuro Denies dizziness and Denies headache(s) Endo Denies fatigue and Denies palpitations Aller/Immun Denies wheezing Physical exam (Primary Care) Vital Signs: Last Vital Signs Pulse 95 01/01/24 13:08 BP 120/80 01/01/24 13:08 Pulse Ox 96 01/01/24 13:08 Oxygen Delivery Method Room Air 01/01/24 13:08 BMI result Body Mass Index 33.6 Tobacco/Smoking Status: Tobacco use Status Tobacco use date assessed 01/01/24 01/01/24 13:12 Patient Tobacco Use Status Never used Tobacco 01/01/24 13:12 e-Cigarette/Vaping Use Never Used 01/01/24 13:12 Thrive Assessment: Date of Thrive Assessment Date Thrive assessed 06/25/23 01/01/24 13:12 Const General: no acute distress and alert HENMT Ears: TM's normal bilaterally and EAC's normal Throat: Yes posterior oropharynx normal and Yes tonsils normal (no TP congestion noted) Neck Neck: Yes no lymphadenopathy and Yes supple Thyroid: Thyroid normal Resp Auscultation: clear to auscultation bilaterally, no rales and no wheezes Cardio Rate: regular rate Rhythm: regular rhythm Heart sounds: no murmurs GI Palpation (GI): Soft to palpation and nontender Auscultation: normal bowel sounds General: Yes no CVA tenderness Back/Spine/Pelvis Back: no CVA tenderness Thoracic/Lumbar Spine: No lumbar spinal tenderness Skin Rashes: no rashes Extrem General: Yes no clubbing, cyanosis or edema Left lower extremity: hip/thigh Details: tenderness Location: of the hip Location: anterolaterally Results AMB Hemoglobin A1c AMB Hemoglobin A1c 5.9 % Last Edit by ZOE Rod on 07/16/24 13:20 Results Reviewed Results Reviewed: Laboratory Last Values Hgb A1c (Clinic) 5.9 % (4.0-6.0) 01/01/24 13:07 Laboratory Tests 06/08/23 08/01/23 09:04 08:23 WBC 4.0 L Hgb 15.0 Hct 43.2 Plt Count 161 Sodium 142 Potassium 4.3 Creatinine 1.04 Estimated GFR > 60 Fasting Glucose 131 H Hemoglobin A1c % 5.6 Uric Acid 7.5 H Calcium 9.8 AST 41 H ALT 69 H Triglycerides 210 H Cholesterol 181 LDL Cholesterol, Calc 109 H HDL Cholesterol 30 L 25-OH Vitamin D Total 24.6 L TSH 1.21 Ur Specific [place] 1.025 Urine Protein Negative Urine Glucose (UA) Negative Urine Blood Negative Urine Nitrite Negative Ur Leukocyte Esterase Negative Assessment and Plan Assessment & Plan (1) Mixed hyperlipidemia: Code(s): E78.2 - Mixed hyperlipidemia Plan: Reinforced low cholesterol diet Will recheck his labs and fasting lipids in 4 months for follow up (2) Benign essential hypertension: Code(s): I10 - Essential (primary) hypertension Plan: Reinforced low sodium diet - goal is systolic BP of 120 mm or less Continue Lisinopril 20 mg QD (3) Impaired fasting glucose: Code(s): R73.01 - Impaired fasting glucose Plan: His in-office HgbA1c done today is at 5.9% (HgbA1c was at 6.1% when previously checked and it was normal at 5.3% back in June 2022 Reinforced low calorie/low carb diet Will recheck his FBS and HgbA1c in 3 months for follow up (4) Asthma: Code(s): J45.909 - Unspecified asthma, uncomplicated Qualifiers: Asthma severity: mild Asthma persistence: intermittent Asthma complication type: uncomplicated Qualified Code(s): J45.20 - Mild intermittent asthma, uncomplicated Plan: Stable Continue Flovent HFA 110 mcg 2 puffs BID and Ventolin HFA 2 puffs QID PRN (5) Chronic idiopathic constipation: Comment: Pleasant 42-year-old male-many questions answered to his satisfaction, Very happy progress he is made being able to maintain consistent bowel pattern Code(s): K59.04 - Chronic idiopathic constipation Plan: Continue Linzess 145 mcg QD and Senna 8.6 mg PRN Encouraged again on increased oral fluids and dietary fiber Follow up with GI as scheduled (6) Pain of left lateral upper thigh: Code(s): M79.652 - Pain in left thigh Plan: This is likely referred pain from his left thigh or lumbar spine X-rays of the lumbar spine done last year revealed (+) degenerative disc disease Reinforced activity and weight-lifting restrictions (7) Left hip pain: Code(s): M25.552 - Pain in left hip Plan: Left hip x-rays done back in 2013 revealed findings of mild left hip dysplasia; repeat left hip x-rays done last year revealed the same - (+) findings of left hip dysplasia He was seen by [facility] last year but he requested to be referred to [facility] for a second opinion and he is now following up with [facility] regularly for his joint pains (8) Bilateral visual loss: Code(s): H54.3 - Unqualified visual loss, both eyes Plan: This is most likely multifactorial, including retinal dystrophy Patient states that he has been seen by multiple eye doctors in the past and was reportedly told that he is currently legally blind but unsure as to what caused his loss of vision He was reportedly told at one point that there was nothing else they can do to salvage his vision He is [facility] and was referred to a retina specialist for further evaluation sometime last year (9) Vitamin D deficiency: Code(s): E55.9 - Vitamin D deficiency, unspecified Plan: Continue Vitamin D3 2000 units QD (10) Hypercalcemia: Code(s): E83.52 - Hypercalcemia Plan: Mild - may be related to his low Vitamin D, which was corrected when last checked His serum calcium level has remained normal on his labs back in July 2023 (11) Elevated LFTs: Code(s): R79.89 - Other specified abnormal findings of blood chemistry Plan: This is most likely due to hepatosteatosis and should improve with weight loss Will recheck his LFTs in 3 months for follow up (12) Gout: Code(s): M10.9 - Gout, unspecified Qualifiers: Gout site: unspecified site Gout etiology: unspecified cause Chronicity: chronic Presence of tophus: without tophus Qualified Code(s): M1A.9XX0 - Chronic gout, unspecified, without tophus (tophi) Plan: Serum uric acid was still elevated at 8.1 when last checked in February 2023 Reinforced low purine diet Continue Allopurinol 300 mg QD and Colchicine 0.6 mg BID PRN He was also on Indomethacin 50 mg TID PRN previously but his insurance would not cover the Rx He was most recently started on Naproxen 500 mg BID PRN when he went to the ER a couple of weeks ago for gout flare up and states that Neproxen helps - Rx refilled (13) Depression: Code(s): F32.9 - Major depressive disorder, single episode, unspecified Qualifiers: Depression Type: major depressive disorder Major depression recurrence: recurrent Active/Remission status: currently active Major depression episode severity: unspecified Qualified Code(s): F33.9 - Major depressive disorder, recurrent, unspecified Plan: Continue Fluoxetine 20 mg QD and Seroquel 100 mg QHS Follow up with psychiatry as scheduled (14) Obesity (BMI 30-39.9): Code(s): E66.9 - Obesity, unspecified Plan: Reinforced diet/exercise as tolerated/lose weight Plan Follow up as scheduled in April 2024; is scheduled for his AWV as well then Orders: Orders Comprehensive Matthews. Panel Fast 4 Months E78.00 - Pure hypercholesterolemia, unspecified Complete Blood Count Auto Diff 4 Months D64.9 - Anemia, unspecified Lipid Panel 4 Months E78.00 - Pure hypercholesterolemia, unspecified Vitamin D 25-OH Total 4 Months E55.9 - Vitamin D deficiency, unspecified AMB Hemoglobin A1c 0716/24 R73.01 - Impaired fasting glucose Uric Acid 4 Months M10.9 - Gout, unspecified Hemoglobin A1c 4 Months R73.01 - Impaired fasting glucose TSH reflex Free T4 4 Months E78.00 - Pure hypercholesterolemia, unspecified UA CC w/rflx Micro + Cult 4 Months R30.0 - Dysuria Medications: Refilled mupirocin 2% Apply to lesion on nose 1 appl topical BID 10 days 22 grams 0RF cholecalciferol (vitamin D3) 50 mcg PO DAILY 90 days 90 caps 3RF E55.9 - Vitamin D deficiency, unspecified Coding Level of Care Code Est Pt Level 4 (53854) Diagnoses Mixed hyperlipidemia E78.2 Benign essential hypertension I10 Impaired fasting glucose R73.01 Mild intermittent asthma without complication J45.20 Asthma severity: mild Asthma persistence: intermittent Asthma complication type: uncomplicated Chronic idiopathic constipation K59.04 Pain of left lateral upper thigh M79.652 Left hip pain M25.552 Bilateral visual loss H54.3 Vitamin D deficiency E55.9 Hypercalcemia E83.52 Elevated LFTs R79.89 Chronic gout without tophus, unspecified cause, unspecified site [id number] Gout site: unspecified site Gout etiology: unspecified cause Chronicity: chronic Presence of tophus: without tophus Episode of recurrent major depressive disorder, unspecified depression episode severity F33.9 Depression Type: major depressive disorder Major depression recurrence: recurrent Active/Remission status: currently active Major depression episode severity: unspecified Obesity (BMI 30-39.9) E66.9
[2024-01-01 13:08] VITALS: BP 120/80; PULSE 95; O2SAT 96; BMI 33.6
== END 2024-01-01 13:58 | disposition home or self-care (01) ==
PROVIDERS: PCP Internal Medicine; Visit Provider Internal Medicine
DX: R73.01 Impaired fasting glucose (principal)
CPT/HCPCS: 83036; 99214

== ENCOUNTER 2024-06-23 12:42 | Outpatient (AMB) | payer MEDICARE, MEDICAID, SELFPAY ==
[2024-06-23 12:56] VITALS: BP 132/80; PULSE 108; O2SAT 97; BMI 33.8
--- NOTE | 2024-06-23 12:56 | A.OFFPC_ITS ---
Vital Signs 06/23/24 12:56 Height 6 ft 1.5 in Weight 260 lb BMI 33.8 BP 132/80 Blood Pressure Location Lt brachial Position Sitting Pulse 108 H Pulse Source Pulse Oximeter Pulse Oximetry (%) 97 Oxygen Delivery Method Room Air Intake Visit Reasons: Ariadna 05/30 high sugar Pet Care Technician Required: No Accompanied by: Self / Same As Patient Allergies No Known Allergies Allergy (Verified 06/23/24 13:29) Medication List - Last Reconciled 06/23/24 by Elieser Moreno MD allopurinol 300 mg PO DAILY 90 days amantadine HCl 100 mg PO DAILY baclofen 20 mg PO TID PRN 30 days cholecalciferol (vitamin D3) 50 mcg PO DAILY 90 days colchicine 0.6 mg PO BID 30 days docusate sodium (Colace) 100 mg PO DAILY fluoxetine 20 mg PO DAILY 90 days fluticasone propionate 100 mcg/actuation (Flovent Diskus) 1 inh inhalation BID hot/cold therapy aids (ThermaCare Cold Wrap Joint pads) 1-2/ week as needed for left hip pain lidocaine 4% 1 patch topical DAILY PRN lidocaine 5% 3 patches topical Q24H PRN lisinopril 20 mg PO DAILY loratadine 10 mg PO DAILY metformin 500 mg PO BID methylcellulose (laxative) (Citrucel) 500 mg PO TID Mitigare (colchicine) 0.6 mg PO BID PRN 30 days NS mometasone 100 mcg/actuation (Asmanex HFA) 1 puff inhalation BID mupirocin 2% 1 appl topical BID 10 days naproxen 500 mg PO BID PRN quetiapine 100 mg PO BEDTIME risperidone 1 mg PO DAILY simethicone (Gas Relief (simethicone)) 125 mg PO TID-QID 30 days tizanidine 4 mg PO TID PRN 30 days tramadol 50 mg PO TID PRN 10 days Ventolin HFA 90 mcg/actuation (albuterol sulfate) 2 puffs PO Q6H PRN NS Tobacco use date assessed: 06/23/24 Dental Screening Dental Screen Date: 06/23/24 Did you have a dental visit in the last 12 months?: Yes Did you have a dental problem in the last 6 months where you did not have access to dental care?: No Was dental information given to patient?: Patient has dentist HPI Ariadna 05/30 high sugar HPI Details Patient comes in today for his HDF follow up visit Recalls that he was advised when he went to the ER at [facility] last month that he had a very high blood sugar reading and was reportedly started on Metformin He did have some labs and other work ups done, including a head CT, for further evaluation of his headaches and dizziness at the time - his work ups all came back normal except for his high blood sugar When patient was last seen in December 2023, his HgbA1c was at 5.9% back then and he was just trying to keep his blood sugar controlled with diet modification alone Patient states that he currently feels okay and denies any recent headaches or dizziness Denies any chest pains, no increased SOB No nausea/vomiting, no abdominal pain No change in bowel habits noted [facility] Medical History (Updated 06/24/24 @ 05:06 by Elieser Moreno MD) Lumbar degenerative disc disease Essential hypertension Gout Learning disability Retinal dystrophy Vitamin D deficiency Impaired fasting glucose Obesity (BMI 30-39.9) Depression History of gout Chronic idiopathic constipation Asthma Benign essential hypertension Chronic constipation MORENO (nonalcoholic steatohepatitis) Rectal bleeding Surgical History H/O removal of testicle History of shoulder surgery Family History Mother Hypertension Father No problems noted. Other Mental health problem Social History Household Members Other:: Sister Housing: House Alcohol intake: former Patient Tobacco Use Status: Never used Tobacco e-Cigarette/Vaping Use: Never Used Second Hand Smoke Exposure: No service: No Current occupational status: disabled Cognitive needs: No Hearing needs: No Vision needs: Yes Questionnaire PHQ-9 Over the last 2 weeks, how often have you been bothered by any of the following problems? 1. Little interest or pleasure in doing things: not at all 2. Feeling down, depressed, or hopeless: nearly every day 3. Trouble falling or staying asleep, or sleeping too much: nearly every day 4. Feeling tired or having little energy: nearly every day 5. Poor appetite or overeating: nearly every day 6. Feeling bad about yourself - or that you are a failure or have let yourself or your family down: not at all 7. Trouble concentrating on things, such as reading the newspaper or watching television: nearly every day 8. Moving or speaking so slowly that other people could have noticed. Or the opposite - being so fidgety or restless that you have been moving around a lot more than usual: not at all 9. Thoughts that you would be better off or of hurting yourself in some way: not at all Total score: 15 Depression Screening Interpretation: Positive Depression Screening Follow-up: Existing condition and In treatment Depression Screening Done: Yes 03644 - PHQ-9 Billing: Yes Source: Developed by Drs. Luis Simon, Virgen Davis, Florencio Trevizo and colleagues, with an educational heber from [employer]. Thrive Questionnaire Date Thrive assessed: 06/23/24 I am a: Patient What is your living situation today?: I have a steady place to live Within the past 12 months, did the food you bought not last and you didn't have the money to get more?: Never true Within the past 12 months, did you worry whether your food would run out before you got money to buy more?: Never true Do you have trouble paying for medicines?: No Do you have trouble getting transportation to medical appointments?: No Do you have trouble paying your heating and electricity bill?: No Do you have trouble taking care of your child, family member or friend?: No Do you have trouble with day-to-day activities such as bathing, preparing meals, shopping, managing finances, etc.?: No Are you currently unemployed and looking for a job?: No Are you interested in more education?: No Please select the resources that you would like help with: None Currently or been in a relationship where the following occur: No concerns reported THRIVE Score: 0 AUDIT C Alcohol Use Questionnaire (AUDIT-C) 1. How often do you have a drink containing alcohol?: Never 3. How often do you have six or more drinks on one occasion?: Never Total Score: 0 Score Reviewed/Action Taken: Yes SUKHWINDER-7 AMB Questionnaire SUKHWINDER-7 Date SUKHWINDER - 7 assessed: 06/23/24 Feeling nervous, anxious, or on edge: 0 = Not at all Not being able to stop or control worryin = Not at all Worrying too much about different things: 0 = Not at all Trouble relaxin = Not at all Being so restless that it is hard to sit still: 0 = Not at all Becoming easily annoyed or irritable: 0 = Not at all Feeling afraid as if something awful might happen: 0 = Not at all Total SUKHWINDER-7 score (0-4 normal; 5-9 mild; 10-14 moderate; 15-21 severe): 0 Source: Developed by Drs. Luis Simon, Virgen Davis, Florencio Trevizo and colleagues, with an educational heber from [employer]. Review of Systems Const Denies chills, Denies fatigue, Denies fever(s) and Denies headache(s) ENT Denies dysphagia, Denies dizziness, Denies otalgia, Denies headache(s), Denies neck pain, Denies odynophagia and Denies sore throat Card Denies chest pain, Denies palpitations and Denies dyspnea Resp Denies chest congestion, Denies cough and Denies dyspnea GI Denies abdominal pain, Reports constipation (better controlled on Rx), Denies dysphagia, Denies heartburn, Denies diarrhea, Denies nausea, Denies odynophagia and Denies vomiting Denies dysuria, Denies nocturia and Denies urinary frequency Musc Denies back pain, Reports arthralgias (left hip - chronic - improved with cortisone injection from ortho) and Denies neck pain Skin/Breast Denies rash Neuro Denies dizziness and Denies headache(s) Endo Denies fatigue and Denies palpitations Physical exam (Primary Care) Vital Signs: Last Vital Signs Pulse 108 H 06/23/24 12:56 BP 132/80 06/23/24 12:56 Pulse Ox 97 06/23/24 12:56 Oxygen Delivery Method Room Air 06/23/24 12:56 BMI result Body Mass Index 33.8 Tobacco/Smoking Status: Tobacco use Status Tobacco use date assessed 06/23/24 06/23/24 13:01 Patient Tobacco Use Status Never used Tobacco 06/23/24 13:01 e-Cigarette/Vaping Use Never Used 06/23/24 13:01 PHQ-9: PHQ-9 Score PHQ-9: Total score 15 06/23/24 13:38 Depression Screening Interpretation: Positive Depression Screening Follow-up: Existing condition and In treatment Thrive Assessment: Date of Thrive Assessment Date Thrive assessed 06/23/24 06/23/24 13:01 Currently or been in a relationship where the following occur: No concerns reported Const General: no acute distress and alert HENMT Ears: TM's normal bilaterally and EAC's normal Throat: Yes posterior oropharynx normal and Yes tonsils normal (no TP congestion noted) Neck Neck: Yes supple and No lymphadenopathy Thyroid: Thyroid normal Resp Auscultation: clear to auscultation bilaterally, no rales and no wheezes Cardio Rate: regular rate Rhythm: regular rhythm Heart sounds: no murmurs GI Palpation (GI): Soft to palpation and nontender Auscultation: normal bowel sounds General: Yes no CVA tenderness Back/Spine/Pelvis Back: no CVA tenderness Thoracic/Lumbar Spine: No lumbar spinal tenderness Skin Rashes: no rashes Extrem General: Yes no clubbing, cyanosis or edema Left lower extremity: hip/thigh Details: tenderness Location: of the hip Location: anterolaterally Coding Level of Care Code Est Pt Level 4 (22965) Diagnoses Type 2 diabetes mellitus without complication, without long-term current use of insulin E11.9 Diabetes mellitus complication status: without complication Diabetes mellitus chcf insulin use: without chcf use Diabetes mellitus type: type 2 Mixed hyperlipidemia E78.2 Essential hypertension I10 Mild intermittent asthma without complication J45.20 Asthma severity: mild Asthma persistence: intermittent Asthma complication type: uncomplicated Chronic idiopathic constipation K59.04 Degeneration of intervertebral disc of lumbar region with discogenic back pain and lower extremity pain M51.362 Disc-related pain type: discogenic back pain and lower extremity pain 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 M16.32 Vitamin D deficiency E55.9 Elevated LFTs R79.89 Chronic gout without tophus, unspecified cause, unspecified site [id number] Gout site: unspecified site Gout etiology: unspecified cause Chronicity: chronic Presence of tophus: without tophus Episode of recurrent major depressive disorder, unspecified depression episode severity F33.9 Depression Type: major depressive disorder Major depression recurrence: recurrent Active/Remission status: currently active Major depression episode severity: unspecified Obesity (BMI 30-39.9) E66.9 Additional Codes PHQ-9 - 59421 - PHQ-9 Billing: Yes ([id number]) Assessment & Plan Assessment & Plan (1) Diabetes mellitus: Code(s): E11.9 - Type 2 diabetes mellitus without complications Category: Medical Qualifiers: Diabetes mellitus complication status: without complication Diabetes mellitus residential living assistant insulin use: without residential living assistant use Diabetes mellitus type: type 2 Qualified Code(s): E11.9 - Type 2 diabetes mellitus without complications Plan: His in-office HgbA1c done today is at 7.6% (was at 5.9% when he was last here in December 2023) - goal is at least <7.0% but ideally <6.5% Reinforced diabetic diet Patient was started on Metformin IR 500 mg BID at the ER at [facility] last month but states that he is not able to tolerate the medication (has abdominal pain and cramping every time he takes his Metformin IR) Will try switching him over to Metformin ER 500 mg BID Will have him recheck his labs and HgbA1c in 3 months for follow up (2) Mixed hyperlipidemia: Code(s): E78.2 - Mixed hyperlipidemia Category: Medical Plan: Reinforced low cholesterol diet Will recheck his labs and fasting lipids in 3 months for follow up - will just have patient use his current orders (updated) with his next lab draw (3) Essential hypertension: Code(s): I10 - Essential (primary) hypertension Category: Medical Plan: Reinforced low sodium diet - goal is systolic BP of 120 mm or less Continue Lisinopril 20 mg QD (4) Asthma: Code(s): J45.909 - Unspecified asthma, uncomplicated Category: Medical Qualifiers: Asthma severity: mild Asthma persistence: intermittent Asthma com plication type: uncomplicated Qualified Code(s): J45.20 - Mild intermittent asthma, uncomplicated Plan: Stable Continue Flovent HFA 110 mcg 2 puffs BID and Ventolin HFA 2 puffs QID PRN (5) Chronic idiopathic constipation: Comment: Pleasant 42-year-old male-many questions answered to his satisfaction, Very happy progress he is made being able to maintain consistent bowel pattern Code(s): K59.04 - Chronic idiopathic constipation Category: Medical Plan: Continue Linzess 145 mcg QD and Senna 8.6 mg PRN Encouraged again on increased oral fluids and dietary fiber Follow up with GI as scheduled (6) Lumbar degenerative disc disease: Code(s): M51.369 - Other intervertebral disc degeneration, lumbar region without mention of lumbar back pain or lower extremity pain Category: Medical Qualifiers: Disc-related pain type: discogenic back pain and lower extremity pain Qualified Code(s): M51.362 - Other intervertebral disc degeneration, lumbar region with discogenic back pain and lower extremity pain Plan: X-rays of the lumbar spine done a couple of years ago revealed (+) degenerative disc disease Reinforced activity and weight-lifting restrictions (7) 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: Code(s): M16.32 - Unilateral osteoarthritis resulting from hip dysplasia, left hip Category: Medical Plan: Left hip x-rays done back in 2013 revealed findings of mild left hip dysplasia; repeat left hip x-rays done last year revealed the same - (+) findings of left hip dysplasia He was seen by [facility] a couple of years ago but he requested to be referred to [facility] for a second opinion and he is now following up with [facility] regularly for his joint pains (8) Vitamin D deficiency: Code(s): E55.9 - Vitamin D deficiency, unspecified Category: Medical Plan: Continue Vitamin D3 2000 units QD (9) Elevated LFTs: Code(s): R79.89 - Other specified abnormal findings of blood chemistry Category: Medical Plan: This is most likely due to hepatosteatosis and should improve with weight loss Will recheck his LFTs in 3 months for follow up (10) Gout: Code(s): M10.9 - Gout, unspecified Category: Medical Qualifiers: Gout site: unspecified site Gout etiology: unspecified cause Chronicity: chronic Presence of tophus: without tophus Qualified Code(s): M1A.9XX0 - Chronic gout, unspecified, without tophus (tophi) Plan: Serum uric acid was still elevated at 8.1 when last checked in February 2023 Reinforced low purine diet Continue Allopurinol 300 mg QD and Colchicine 0.6 mg BID PRN He was also on Indomethacin 50 mg TID PRN previously but his insurance would not cover the Rx; is currently on Naproxen PRN (11) Depression: Code(s): F32.9 - Major depressive disorder, single episode, unspecified Category: Medical Qualifiers: Depression Type: major depressive disorder Major depression recurrence: recurrent Active/Remission status: currently active Major depression episode severity: unspecified Qualified Code(s): F33.9 - Major depressive disorder, recurrent, unspecified Plan: Continue Fluoxetine 20 mg QD and Seroquel 100 mg QHS Follow up with psychiatry as scheduled (12) Obesity (BMI 30-39.9): Code(s): E66.9 - Obesity, unspecified Category: Medical Plan: Reinforced diet/exercise as tolerated/lose weight Plan To return as scheduled in September 2024 for his AWV and follow up visit Medications: New metformin ER 500 mg PO BID 30 days 60 tabs 3RF
== END 2024-06-23 13:49 | disposition home or self-care (01) ==
PROVIDERS: PCP Internal Medicine; Visit Provider Internal Medicine
DX: E11.69 Type 2 diabetes mellitus with other specified complication (principal); F33.9 Major depressive disorder, recurrent, unspecified; E66.9 Obesity, unspecified; Z68.33 Body mass index [BMI] 33.0-33.9, adult; E78.2 Mixed hyperlipidemia; I10 Essential (primary) hypertension; J45.20 Mild intermittent asthma, uncomplicated; K59.04 Chronic idiopathic constipation; M51.362 Other intervertebral disc degeneration, lumbar region with discogenic back pain and lower extremity pain; M16.32 Unilateral osteoarthritis resulting from hip dysplasia, left hip; E55.9 Vitamin D deficiency, unspecified; R79.89 Other specified abnormal findings of blood chemistry; M1A.9XX0 Chronic gout, unspecified, without tophus (tophi)

== ENCOUNTER → 2024-06-23 12:42 | Outpatient (BNVA) | payer MEDICARE, MEDICAID, SELFPAY | PROVIDERS: PCP Internal Medicine; Visit Provider Internal Medicine | DX: E11.9 Type 2 diabetes mellitus without complications (principal); E78.2 Mixed hyperlipidemia; I10 Essential (primary) hypertension; J45.20 Mild intermittent asthma, uncomplicated; K59.04 Chronic idiopathic constipation; M51.362 Other intervertebral disc degeneration, lumbar region with discogenic back pain and lower extremity pain; M16.32 Unilateral osteoarthritis resulting from hip dysplasia, left hip; E55.9 Vitamin D deficiency, unspecified; R79.89 Other specified abnormal findings of blood chemistry; F33.9 Major depressive disorder, recurrent, unspecified; E66.9 Obesity, unspecified; Z68.33 Body mass index [BMI] 33.0-33.9, adult; Z71.3 Dietary counseling and surveillance | CPT/HCPCS: 96127; 99212 ==

== ENCOUNTER 2024-07-18 13:11 | Outpatient (AMB) | payer MEDICARE, MEDICAID, SELFPAY ==
[2024-07-18 13:17] VITALS: BP 128/90; PULSE 113; TEMP 36.4; O2SAT 97; BMI 33.2
--- NOTE | 2024-07-18 13:17 | MHC.PC.OV ---
Vital Signs 07/18/24 13:17 Height 6 ft 1.5 in Weight 255 lb 4 oz BMI 33.2 BP 128/90 H Blood Pressure Location Lt brachial Position Sitting Pulse 113 H Pulse Source Pulse Oximeter Temp 97.5 F Temp Source Temporal Artery Scan Pulse Oximetry (%) 97 Oxygen Delivery Method Room Air Intake Visit Reasons: [facility] 07/14 gout flare up Kiln Feeder Required: No Accompanied by: Self / Same As Patient Allergies No Known Allergies Allergy (Verified 07/20/24 15:43) Medication List - Last Reconciled 07/20/24 by Elieser Moreno MD allopurinol 300 mg PO DAILY 90 days amantadine HCl 100 mg PO DAILY baclofen 20 mg PO TID PRN 30 days cholecalciferol (vitamin D3) 50 mcg PO DAILY 90 days colchicine 0.6 mg PO BID 90 days docusate sodium (Colace) 100 mg PO DAILY fluoxetine 20 mg PO DAILY 90 days fluticasone propionate 100 mcg/actuation (Flovent Diskus) 1 inh inhalation BID hot/cold therapy aids (ThermaCare Cold Wrap Joint pads) 1-2/ week as needed for left hip pain indomethacin 25 mg PO BID lidocaine 4% 1 patch topical DAILY PRN lidocaine 5% 3 patches topical Q24H PRN lisinopril 20 mg PO DAILY loratadine 10 mg PO DAILY metformin ER 500 mg PO BID 30 days methylcellulose (laxative) (Citrucel) 500 mg PO TID Mitigare (colchicine) 0.6 mg PO BID PRN 30 days NS mometasone 100 mcg/actuation (Asmanex HFA) 1 puff inhalation BID mupirocin 2% 1 appl topical BID 10 days naproxen 500 mg PO BID PRN quetiapine 100 mg PO BEDTIME quetiapine 50 mg PO BEDTIME risperidone 1 mg PO DAILY simethicone (Gas Relief (simethicone)) 125 mg PO TID-QID 30 days tizanidine 4 mg PO TID PRN 30 days tramadol 50 mg PO TID PRN 10 days Ventolin HFA 90 mcg/actuation (albuterol sulfate) 2 puffs PO Q6H PRN NS Tobacco use date assessed: 07/18/24 Dental Screening Dental Screen Date: 07/18/24 HPI [facility] 07/14 gout flare up HPI Details Patient comes in today for his follow-up visit He went to the emergency room at [facility] a few days ago for increased pain on his right foot after he ate a [place] [place] States that the pain was radiating from 1 side of the foot to the other He recalls experiencing similar symptoms back in December of last year (2023) wearing he was told that he has gout and he proceeded to go to the ER as he suspected that he was having a gout flare at the time States that he has been taking his medications for gout regularly but there was one medication his insurance would not cover - unclear at this time whether it is Indomethacin or Colchicine and patient himself does not remember the name of his medication States that he was able to get it filled this time with just a $15 co-pay but he was reportedly advised that his next Rx refill will require a prior authorization submitted to his insurance company Patient also reportedly went to the ER at [facility] a couple weeks ago for increasing cough and congestion and asthma flare-up He was worked up, treated and discharged on the same day after all of his workups came back negative Patient states that his right foot pain is currently improving and that he feels okay otherwise with no other acute issues He denies any headaches or dizziness Denies any chest pains, no increased shortness of breath No nausea/vomiting, no abdominal pain No change in bowel habits noted [facility] Medical History Lumbar degenerative disc disease Essential hypertension Gout Learning disability Retinal dystrophy Vitamin D deficiency Impaired fasting glucose Obesity (BMI 30-39.9) Depression History of gout Chronic idiopathic constipation Asthma Benign essential hypertension Chronic constipation MORENO (nonalcoholic steatohepatitis) Rectal bleeding Surgical History H/O removal of testicle History of shoulder surgery Family History Mother Hypertension Father No problems noted. Other Mental health problem Social History Household Members Other:: Sister Housing: House Alcohol intake: former Patient Tobacco Use Status: Never used Tobacco e-Cigarette/Vaping Use: Never Used Second Hand Smoke Exposure: No service: No Current occupational status: disabled Cognitive needs: No Hearing needs: No Vision needs: Yes Questionnaire PHQ-9 Over the last 2 weeks, how often have you been bothered by any of the following problems? 1. Little interest or pleasure in doing things: not at all 2. Feeling down, depressed, or hopeless: not at all 3. Trouble falling or staying asleep, or sleeping too much: not at all 4. Feeling tired or having little energy: not at all 5. Poor appetite or overeating: not at all 6. Feeling bad about yourself - or that you are a failure or have let yourself or your family down: not at all 7. Trouble concentrating on things, such as reading the newspaper or watching television: not at all 8. Moving or speaking so slowly that other people could have noticed. Or the opposite - being so fidgety or restless that you have been moving around a lot more than usual: not at all 9. Thoughts that you would be better off or of hurting yourself in some way: not at all Total score: 0 Depression Screening Interpretation: Negative Depression Screening Done: Yes 42886 - PHQ-9 Billing: Yes Source: Developed by Drs. Luis Simon, Virgen Davis, Florencio Trevizo and colleagues, with an educational heber from [employer]. Thrive Questionnaire Date Thrive assessed: 07/18/24 I am a: Patient What is your living situation today?: I have a steady place to live Within the past 12 months, did the food you bought not last and you didn't have the money to get more?: Never true Within the past 12 months, did you worry whether your food would run out before you got money to buy more?: Never true Do you have trouble paying for medicines?: No Do you have trouble getting transportation to medical appointments?: No Do you have trouble paying your heating and electricity bill?: No Do you have trouble taking care of your child, family member or friend?: No Do you have trouble with day-to-day activities such as bathing, preparing meals, shopping, managing finances, etc.?: No Are you currently unemployed and looking for a job?: No Are you interested in more education?: No Please select the resources that you would like help with: None Currently or been in a relationship where the following occur: No concerns reported THRIVE Score: 0 AUDIT C Alcohol Use Questionnaire (AUDIT-C) 1. How often do you have a drink containing alcohol?: Never 3. How often do you have six or more drinks on one occasion?: Never Total Score: 0 Score Reviewed/Action Taken: Yes SUKHWINDER-7 AMB Questionnaire SUKHWINDER-7 Date SUKHWINDER - 7 assessed: 07/18/24 Feeling nervous, anxious, or on edge: 0 = Not at all Not being able to stop or control worryin = Not at all Worrying too much about different things: 0 = Not at all Trouble relaxin = Not at all Being so restless that it is hard to sit still: 0 = Not at all Becoming easily annoyed or irritable: 0 = Not at all Feeling afraid as if something awful might happen: 0 = Not at all Total SUKHWINDER-7 score (0-4 normal; 5-9 mild; 10-14 moderate; 15-21 severe): 0 Source: Developed by Drs. Luis Simon, Virgen Davis, Florencio Trevizo and colleagues, with an educational heber from [employer]. SUKHWINDER-7 Assessment Billing SUKHWINDER-7 Assessment Tool: SUKHWINDER-7 Assessment 58099 Review of Systems Const Denies chills, Denies fatigue, Denies fever(s) and Denies headache(s) ENT Denies dysphagia, Denies dizziness, Denies otalgia, Denies headache(s), Denies neck pain, Denies odynophagia and Denies sore throat Card Denies chest pain, Denies palpitations and Denies dyspnea Resp Denies chest congestion, Denies cough and Denies dyspnea GI Denies abdominal pain, Reports constipation (better controlled on Rx), Denies dysphagia, Denies heartburn, Denies diarrhea, Denies nausea, Denies odynophagia and Denies vomiting Denies dysuria, Denies nocturia and Denies urinary frequency Musc Details: (+) right foot pain - improving Denies back pain, Reports arthralgias (left hip - chronic - improved with cortisone injection from ortho) and Denies neck pain Skin/Breast Denies rash Neuro Denies dizziness and Denies headache(s) Endo Denies fatigue and Denies palpitations Physical exam (Primary Care) Vital Signs: Last Vital Signs Temp 97.5 F 07/18/24 13:17 Pulse 113 H 07/18/24 13:17 BP 128/90 H 07/18/24 13:17 Pulse Ox 97 07/18/24 13:17 Oxygen Delivery Method Room Air 07/18/24 13:17 BMI result Body Mass Index 33.2 Tobacco/Smoking Status: Tobacco use Status Tobacco use date assessed 07/18/24 07/18/24 13:20 Patient Tobacco Use Status Never used Tobacco 07/18/24 13:20 e-Cigarette/Vaping Use Never Used 07/18/24 13:20 PHQ-9: PHQ-9 Score PHQ-9: Total score 0 07/18/24 14:51 Depression Screening Interpretation: Negative Thrive Assessment: Date of Thrive Assessment Date Thrive assessed 07/18/24 07/18/24 13:31 Currently or been in a relationship where the following occur: No concerns reported Const General: no acute distress and alert HENMT Throat: Yes posterior oropharynx normal and Yes tonsils normal (no TP congestion noted) Neck Neck: Yes supple and No lymphadenopathy Thyroid: Thyroid normal Resp Auscultation: clear to auscultation bilaterally, no rales and no wheezes Cardio Rate: regular rate Rhythm: regular rhythm Heart sounds: no murmurs GI Palpation (GI): Soft to palpation and nontender Auscultation: normal bowel sounds General: Yes no CVA tenderness Back/Spine/Pelvis Back: no CVA tenderness Thoracic/Lumbar Spine: No lumbar spinal tenderness Skin Rashes: no rashes Extrem General: Yes no clubbing, cyanosis or edema Left lower extremity: hip/thigh Details: tenderness Location: of the hip Location: anterolaterally Coding Level of Care Code Est Pt Level 3 (40465) Diagnoses Chronic gout without tophus, unspecified cause, unspecified site M1A.9XX0 Gout site: unspecified site Gout etiology: unspecified cause Chronicity: chronic Presence of tophus: without tophus Type 2 diabetes mellitus without complication, without long-term current use of insulin E11.9 Diabetes mellitus type: type 2 Diabetes mellitus extermination supervisor insulin use: without extermination supervisor use Diabetes mellitus complication status: without complication Mixed hyperlipidemia E78.2 Mild intermittent asthma without complication J45.20 Asthma severity: mild Asthma persistence: intermittent Asthma complication type: uncomplicated Obesity (BMI 30-39.9) E66.9 Additional Codes SUKHWINDER-7 Assessment Billing - SUKHWINDER-7 Assessment Tool: SUKHWINDER-7 Assessment 72432 ([id number]) PHQ-9 - 17113 - PHQ-9 Billing: Yes ([id number]) Assessment & Plan Assessment & Plan (1) Gout: Code(s): M10.9 - Gout, unspecified Category: Medical Qualifiers: Gout site: unspecified site Gout etiology: unspecified cause Chronicity: chronic Presence of tophus: without tophus Qualified Code(s): M1A.9XX0 - Chronic gout, unspecified, without tophus (tophi) Plan: Reinforced low purine diet Continue Allopurinol 300 mg QD and Colchicine 0.6 mg BID Continue Imdomethacin 25 mg BID PRN Unclear at this time whether it is patient's Colchicine or Indomethacin that needs a prior authorization Will try to obtain a copy of his recent ER visit notes from [facility] for review and to help us determine which medication it is that his insurance refuses to cover (2) Diabetes mellitus: Code(s): E11.9 - Type 2 diabetes mellitus without complications Category: Medical Qualifiers: Diabetes mellitus type: type 2 Diabetes mellitus jail insulin use: without extermination supervisor use Diabetes mellitus complication status: without complication Qualified Code(s): E11.9 - Type 2 diabetes mellitus without complications Plan: His in-office HgbA1c done today is at 6.5% (was at 7.6% just a few weeks ago) - goal is at least <7.0% but ideally <6.5% Reinforced diabetic diet Continue Metformin ER 500 mg BID - he could not tolerate the IR formulation due to abdominal cramping and pain Will have him recheck his labs and HgbA1c as scheduled in 2 to 3 months for follow up (3) Mixed hyperlipidemia: Code(s): E78.2 - Mixed hyperlipidemia Category: Medical Plan: Reinforced low cholesterol diet Will recheck his labs and fasting lipids in 2 to 3 months for follow up (4) Asthma: Code(s): J45.909 - Unspecified asthma, uncomplicated Category: Medical Qualifiers: Asthma severity: mild Asthma persistence: intermittent Asthma complication type: uncomplicated Qualified Code(s): J45.20 - Mild intermittent asthma, uncomplicated Plan: Stable Continue Flovent HFA 110 mcg 2 puffs BID and Ventolin HFA 2 puffs QID PRN (5) Obesity (BMI 30-39.9): Code(s): E66.9 - Obesity, unspecified Category: Medical Plan: Reinforced diet/exercise as tolerated/lose weight Plan To return as scheduled in September 2024 for his AWV and follow up visit Orders: Orders AMB Hemoglobin A1c 07/18/24 R73.01 - Impaired fasting glucose Medications: Changed From colchicine 0.6 mg PO BID 30 days 60 tabs 3RF M1A.9XX0 - Chronic gout, unspecified, without tophus (tophi) To colchicine 0.6 mg PO BID 90 days 180 tabs 3RF M1A.9XX0 - Chronic gout, unspecified, without tophus (tophi) Refilled allopurinol 300 mg PO DAILY 90 days 90 tabs 1RF
--- OUTSIDE RECORDS SUMMARY | 2024-07-18 13:25 | XMS_ITS | Encounter Summary ---
Author Organization [facility] Address [address] [place] [address] Care Team Providers Care Air Cargo Specialist Name Role Phone Elieser Moreno MD Primary Care Provider [phone] Reason for Visit * Reason Comments Foot Pain Encounter Details Date Type Department Care Team (Late st Contact Info) Description 07/14/2024 10:43 PM EST - 07/15/2024 12:[address] [facility] Emergency [address] [place] [id number] Acute gout of right foot, unspecified cause (Primary Dx) Discharge Disposition: Home or Self Care Social History Tobacco Use Types Packs/Day Years Used Date Smoking Tobacco: Never Smokeless Tobacco: Never Sex and Gender Information Value Date Recorded Sex Assigned at Male 07/01/2024 8:00 AM EST Gender Identity Male 07/01/2024 8:00 AM EST Sexual Orientation Straight 07/01/2024 8: 00 AM EST Job Start Date Occupation Industry Not on file Not on file Not on file documented as of this encounter Last Filed Vital Signs Vital Sign Reading Time Taken Comments Blood Pressure 136/111 07/14/2024 10:16 PM EST Pulse 112 07/14/2024 10:16 PM EST Temperature 36.4 ??C (97.5 ??F) 07/14/2024 10:[address] Respiratory Rate 18 07/14/2024 10:16 PM EST Oxygen Saturation 97% 07/14/2024 10:16 PM EST Inhaled Oxygen Concentration - - Weight 118 kg (260 lb) 07/14/2024 5:53 PM EST Height 190.5 cm (6' 3 ) 07/14/2024 5:53 PM EST Body Mass Index 32.5 07/14/2024 5:53 PM EST documented in this encounter Functional Status Functional Status Response Date of Assess ment Are you deaf or do you have serious difficulty h earing? No 07/01/2024 Are you blind or do you have serious difficulty seeing, even when wearing glasses? No 07/01/2024 Do you have serious difficul ty walking or climbing stairs? No 07/01/2024 Do you have serious difficulty dressing or bathi ng? No 07/01/2024 Because of a physical, menta l, or emotional condition, do you have serious difficulty doing errands alone such as visiting the doctor? No 07/01/2024 Cognitive Status Response Date of Assessm ent Because of a physical, menta l, or emotional condition, do you have serious difficulty concentrating, remembering, or making decisions? (5 years old or older) No 07/01/2024 documented as of this encounter Discharge Instructions * Discharge Instructions* JOLENE Polo - 07/14/2024 11:20 PM EST Take Indomethacin 50 mg three times daily for 2 days, after that, take 25 mg three times daily as needed for pain. Continue your other prescribed medications. Follow-up with your doctor. Come back to the ED with new or worsening symptoms, worsening redness or swelling, fevers or chills, or any other signs or symptoms that are greatly concerning to you. documented in this encounter Medications at Time of Discharge Medication Sig Dispensed Refills Start Date End Date albuterol HFA (PROAIR HFA ; PROVENTIL HFA ; VENTOLIN HFA) 90 mcg/actuation inhaler Inhale 2 puffs by mouth every 6 (six) hours if needed for wheezing. 1 each 07/01/2024 allopurinoL (ZYLOPRIM) 300 mg tablet Take 1 tablet (300 mg total) by mouth 1 (one) time each day. 02/13/2024 amantadine (SYMMETREL) 100 mg capsule Take 1 capsule (100 mg total) by mouth 1 (one) time each day. benzonatate (TESSALON) 100 mg capsule Take 1 capsule (100 mg total) by mouth 3 (three) times a day if needed for cough. Do not crush or chew. 12 capsule 07/01/2024 FLUoxetine (PROzac) 40 mg capsule Take 1 capsule (40 mg total) by mouth 1 (one) time each day. 04/23/2024 hydrOXYzine HCL (ATARAX) 25 mg tablet Take 1 tablet (25 mg total) by mouth 2 (two) times a day if needed. 04/23/2024 indomethacin (INDOCIN) 25 mg capsule Take 2 capsules (50 mg total) by mouth 3 (three) times a day for 2 days, THEN 1 capsule (25 mg total) 3 (three) times a day if needed for mild pain or moderate pain for up to 3 days. 21 capsule 07/14/2024 07/19/2024 lisinopriL (PRINIVIL,ZESTRIL) 20 mg tablet Take 1 tablet (20 mg total) by mouth 1 (one) time each day. 02/13/2024 QUEtiapine (SEROquel) 100 mg tablet Take 1 tablet (100 mg total) by mouth. at bedtime 03/25/2024 documented as of this encounter Ordered Prescriptions Prescription Sig Dispensed Refills Start Date End Da te indomethacin (INDOCIN) 25 mg capsule Take 2 capsules (50 mg total) by mouth 3 (three) times a day for 2 days, THEN 1 capsule (25 mg total) 3 (three) times a day if needed for mild pain or moderate pain for up to 3 days. 21 capsule 07/14/2024 07/19/2024 indomethacin (INDOCIN) 25 mg capsule Take 2 capsules (50 mg total) by mouth 3 (three) times a day for 2 days, THEN 1 capsule (25 mg total) 3 (three) times a day if needed for mild pain or moderate pain for up to 3 days. 21 capsule 07/14/2024 07/14/2024 documented in this encounter Discharge Disposition Disposition Code Departure Means Destination Comment s Home or Self Care documented in this encounter Progress Notes * Lorenza Markham RN - 07/14/2024 5:59 PM EST Bilateral pedal pulses palpated in triage. Pt denies injury to affected foot. * Julianna Michelle RN - 07/14/2024 5:30 PM EST Per EMS patient has pain and swelling to his right foot. Reports history of gout. Patient also reports HTN. Denies chest pain * Brian Anguiano MD - 07/14/2024 5:[address] [facility] Emergency Department Encounter Note Patient Name: Adam Montesinos Initial Evaluation: 07/14/2024 : 1980 Patient's PCP: Elieser Moreno MD Emergency Physician: JOLENE Taylor History of Present Illness Chief Complaint: Chief Complaint Patient presents with Foot Pain HPI: 43-year-old male with reported history of HTN, type II DM, gout on allopurinol; presents for seemingly atraumatic right foot pain over the last few days. He has noted pain and swelling to the right foot, without redness or heat. States it is not getting better with the allopurinol, which is why he comes here. Denies any associate fevers or chills. No trauma or falls. No other complaints. States this is typically where he gets gout flares, and feels as though this is similar. Otherwise denies fever, chills, weakness, c/p, sob, cough, abd pain, n/v/d/c. No headache, LOC, lightheadedness, dizziness. No dysuria, frequency, or hematuria. ROS: I have performed a ROS with the pertinent positives and negatives documented in the history ofpresent illness. Previous History Past Medical History: Diagnosis Date Asthma Depression Gout Hypertension No past surgical history on file. Social History Tobacco Use Smoking status: Never Smokeless tobacco: Never No family history on file. has No Known Allergies. No current facility-administered medications on file prior to encounter. Current Outpatient Medications on File Prior to Encounter Medication Sig Dispense Refill albuterol HFA (PROAIR HFA ; PROVENTIL HFA ; VENTOLIN HFA) 90 mcg/actuation inhaler Inhale 2 puffs by mouth every 6 (six) hours if needed for wheezing. 1 each 0 allopurinoL (ZYLOPRIM) 300 mg tablet Take 1 tablet (300 mg total) by mouth 1 (one) time each day. amantadine (SYMMETREL) 100 mg capsule Take 1 capsule (100 mg total) by mouth 1 (one) time each day. benzonatate (TESSALON) 100 mg capsule Take 1 capsule (100 mg total) by mouth 3 (three) times a day if needed for cough. Do not crush or chew. 12 capsule 0 FLUoxetine (PROzac) 40 mg capsule Take 1 capsule (40 mg total) by mouth 1 (one) time each day. hydrOXYzine HCL (ATARAX) 25 mg tablet Take 1 tablet (25 mg total) by mouth 2 (two) times a day if needed. lisinopriL (PRINIVIL,ZESTRIL) 20 mg tablet Take 1 tablet (20 mg total) by mouth 1 (one) time each day. metFORMIN (GLUCOPHAGE) 500 mg tablet Take 1 tablet (500 mg total) by mouth 2 (two) times a day withmeals for 20 days. 40 tablet 0 QUEtiapine (SEROquel) 100 mg tablet Take 1 tablet (100 mg total) by mouth. at bedtime Physical Exam ED Triage Vitals Temp Heart Rate Resp BP 07/14/24 1753 07/14/24 1753 07/14/24 1753 07/14/24 1753 36.5 ??C (97.7 ??F) 94 18 (!) 146/108 SpO2 Temp Source Heart Rate Source Patient Position 07/14/24 1753 07/14/24 1753 07/14/24 2216 07/14/24 175 94 % Oral Monitor Sitting BP Location FiO2 (%) 07/14/24 175 -- Right arm;Upper GENERAL: Non-toxic appearing, no acute distress. SKIN: [place], warm, dry. HEENT: Normocephalic, atraumatic. EOMI. NECK: Supple, full ROM. CARDIOVASCULAR: Deferred. PULMONARY: Breathing adequately on room air. ABDOMINAL: Deferred. MUSCULOSKELETAL: RLE: + Mild degree of edema with underlying TTP to the midfoot. No bony deformity or crepitus. No overlying erythema or heat. Active dorsiflexion/plantarflexion ability. Calf is supple nontender. Palpable DP/TP pulses. Otherwise nontender palpation about the limb. NEURO: AOx3 PSYCHIATRIC: Normal affect, fluid speech, good eye contact and appropriate demeanor. Results Labs Reviewed BASIC METABOLIC PANEL - Abnormal Result Value Sodium 140 Potassium 3.7 Chloride 104 CO2 29 Anion Gap 7 Glucose 131 (*) BUN 16 Creatinine 0.89 eGFR 110 BUN/Creatinine Ratio 18.0 Calcium 9.7 CBC WITH AUTO DIFFERENTIAL - Abnormal WBC 8.0 RBC 4.70 Hemoglobin 14.5 Hematocrit 42.8 MCV 91.5 MCH 31.0 MCHC 33.9 RDW 13.4 Platelets 230 MPV 9.8 NRBC 0.0 NRBC Absolute 0.00 Neutrophils Relative 60.4 Lymphocytes Relative 28.7 Monocytes Relative 8.8 Eosinophils Relative 1.1 Basophils Relative 0.4 Immature Granulocytes Relative 0.6 Neutrophils Absolute 4.85 Lymphocytes Absolute 2.31 Monocytes Absolute 0.71 Eosinophils Absolute 0.09 Basophils Absolute 0.03 Immature Granulocytes Absolute 0.05 (*) URIC ACID - Normal Uric Acid 8.7 CBC AND DIFFERENTIAL Narrative: The following orders were created for panel order CBC and differential. Procedure Abnormality Status --------- ------ CBC auto differential[[id number]] Abnormal Final result Please view results for these tests on the individual orders. Abnormal Labs Reviewed BASIC METABOLIC PANEL - Abnormal; Notable for the following components: Result Value Glucose 131 (*) All other components within normal limits CBC WITH AUTO DIFFERENTIAL - Abnormal; Notable for the following components: Immature Granulocytes Absolute 0.05 (*) All other components within normal limits XR Foot 3+ Views Right (Results Pending) I have discussed the incidental/abnormal imaging and/or lab abnormalities with the patient and haveinstructed them the need for further evaluation and workup with their primary care doctor. I have provided the patient with a paper copy of the abnormality. The laboratory results, imaging results and other diagnostic exam results were reviewed in the EMR. Differential Diagnosis Gouty arthritis Osteoarthritis Cellulitis Dependent edema DVT-less likely Septic arthropathy-unlikely ? Medical Decision Making On my exam is NAD, nontoxic-appearing, hemodynamically stable and afebrile. Overall he is clinically well-appearing. He has no overt erythema or heat to suggest significant infectious process. No prior traumatic indications to the area. He is neurovascularly intact. No TTP about the deep venous system, I do not suspect DVT at this time. His labs are further reassuring without leukocytosis, anemia or gross electrolyte abnormalities. Uric acid of 8.7 is highly suggestive of underlying gouty flare. Will treat with Toradol and oxycodonehere today, discharged with indomethacin taper. Medically and hemodynamically stable, safe for discharge. Discussed this plan with the patient who is agreeable. Red flag symptoms and return precautions discussed, all questions asked and answered, plan for discharge with outpatient follow-up. [employer] dictation software was utilized for documentation and may have resulted in unintentional typographical errors. *All documented times are approximate and may not reflect exact time of care rendered or intervention.* Clinical Impressions as of 07/14/242323 Acute gout of right foot, unspecified cause Medications oxyCODONE (ROXICODONE) immediate release tablet 5 mg (has no administration in time range) ketorolac (TORADOL) injection 30 mg (has no administration in time range) Procedures Procedures Diagnosis 1. Acute gout of right foot, unspecified cause Disposition Discharge ED Prescriptions Medication Sig Dispense Start Date End Date Auth. Provider indomethacin (INDOCIN) 25 mg capsule Take 2 capsules (50 mg total) by mouth 3 (three) times a day for 2 days, THEN 1 capsule (25 mg total) 3 (three) times a day if needed for mild pain or moderate pain for up to 3 days. 21 capsule 07/14/2024 07/19/2024 JOLENE Polo Physician Attestation I was available for consult in real time (during the shifts I was working) and if asked my input incare is as outlined by the documentation below by me. If not documented, then I did not participatein the care of this patient and have reviewed the chart as written. Brian Anguiano MD Electronically signed by JOLENE Taylor PA 07/14/242323 Brian Anguiano MD 07/18/244 documented in this encounter Plan of Treatment Not on file documented as of this encounter Procedures Procedure Name Priority Date/Time Associated Diagnosis Comments CBC WITH AUTO DIFFERENTIAL STAT 07/14/2024 6:36 PM EST CBC AND DIFFERENTIAL STAT 07/14/2024 6:36 PM EST URIC ACID STAT 07/14/2024 6:36 PM EST BASIC METABOLIC PANEL STAT 07/14/2024 6:36 PM EST XR FOOT 3+ VIEWS RIGHT STAT 07/14/2024 6:25 PM EST documented in this encounter Results * (ABNORMAL) CBC auto differential (07/14/2024 6:36 PM EST) [facility] Signature WBC 8.0 4.8 - 10.8 K/mcL LAB HEMETOLOGY METHOD 07/14/2024 7:06 PM [facility] RBC 4.70 4.50 - 5.50 M/mcL LAB HEMETOLOGY METHOD 07/14/2024 7:06 PM [facility] Hemoglobin 14.5 13.5 - 17.5 g/dL LAB HEMETOLOGY METHOD 07/14/2024 7:06 PM [facility] Hematocrit 42.8 42.0 - 54.0 % LAB HEMETOLOGY METHOD 07/14/2024 7:06 PM [facility] MCV 91.5 79.0 - 98.0 FL LAB HEMETOLOGY METHOD 07/14/2024 7:06 PM [facility] MCH 31.0 27.0 - 32.0 pcg LAB HEMETOLOGY METHOD 07/14/2024 7:06 PM [facility] MCHC 33.9 32.0 - 37.0 g/dL LAB HEMETOLOGY METHOD 07/14/2024 7:06 PM [facility] RDW 13.4 11.0 - 15.0 % LAB HEMETOLOGY METHOD 07/14/2024 7:06 PM [facility] Platelets 230 130 - 400 K/mcL LAB HEMETOLOGY METHOD 07/14/2024 7:06 PM [facility] MPV 9.8 7.0 - 11.0 FL LAB HEMETOLOGY METHOD 07/14/2024 7:06 PM [facility] NRBC 0.0 <1.0 % LAB HEMETOLOGY METHOD 07/14/2024 7:06 PM [facility] NRBC Absolute 0.00 <0.10 K/mcL LAB HEMETOLOGY METHOD 07/14/2024 7:06 PM [facility] Neutrophils Relative 60.4 % LAB HEMETOLOGY METHOD 07/14/2024 7:06 PM [facility] Lymphocytes Relative 28.7 % LAB HEMETOLOGY METHOD 07/14/2024 7:06 PM [facility] Monocytes Relative 8.8 % LAB HEMETOLOGY METHOD 07/14/2024 7:06 PM [facility] Eosinophils Relative 1.1 % LAB HEMETOLOGY METHOD 07/14/2024 7:06 PM [facility] Basophils Relative 0.4 % LAB HEMETOLOGY METHOD 07/14/2024 7:06 PM [facility] Immature Granulocytes Relative 0.6 % LAB HEMETOLOGY METHOD 07/14/2024 7:06 PM [facility] Neutrophils Absolute 4.85 1.50 - 7.00 K/mcL LAB HEMETOLOGY METHOD 07/14/2024 7:06 PM [facility] Lymphocytes Absolute 2.31 1.00 - 5.00 K/mcL LAB HEMETOLOGY METHOD 07/14/2024 7:06 PM [facility] Monocytes Absolute 0.71 0.20 - 1.00 K/mcL LAB HEMETOLOGY METHOD 07/14/2024 7:06 PM [facility] Eosinophils Absolute 0.09 0.00 - 0.50 K/mcL LAB HEMETOLOGY METHOD 07/14/2024 7:06 PM [facility] Basophils Absolute 0.03 0.00 - 0.20 K/mcL LAB HEMETOLOGY METHOD 07/14/2024 7:06 PM EST [facility] Immature Granulocytes Absolute 0.05(H) 0.00 - 0.03 K/mcL LAB HEMETOLOGY METHOD 07/14/2024 7:06 PM EST [facility] Blood Venous blood specimen / Unknown Venipuncture / Unknown 07/14/2024 6:36 PM EST 07/14/2024 6:58 PM EST Brian Anguiano MD LAB BLOOD ORDERABLES [facility] [address] [place] [address], [place] [phone] * Uric acid (07/14/2024 6:36 PM EST) Pathologist [facility] Uric Acid 8.7 3.7 - 9.2 mg/dL LAB CHEMISTRY METHOD 07/14/2024 7:25 PM EST [facility] Blood Venous blood specimen / Unknown Venipuncture / Unknown 07/14/2024 6:36 PM EST 07/14/2024 6:58 PM EST Brian Anguiano MD LAB BLOOD ORDERABLES Performing Organization Address City/[facility]/ZIP Co de Phone Number [facility] [address] [place] [address], [place] [phone] * (ABNORMAL) Basic metabolic panel (07/14/2024 6:36 PM EST) Sodium 140 133 - 145 mmol/L LAB CHEMISTRY METHOD 07/14/2024 7:25 PM EST [facility] Potassium 3.7 3.5 - 5.5 mmol/L LAB CHEMISTRY METHOD 07/14/2024 7:25 PM [facility] Chloride 104 96 - 110 mmol/L LAB CHEMISTRY METHOD 07/14/2024 7:25 PM EST [facility] CO2 29 21 - 32 mmol/L LAB CHEMISTRY METHOD 07/14/2024 7:25 PM [facility] Anion Gap 7 3 - 11 LAB CHEMISTRY METHOD 07/14/2024 7:25 PM [facility] Glucose 131(H) 70 - 100 mg/dL LAB CHEMISTRY METHOD 07/14/2024 7:25 PM [facility] BUN 16 5 - 25 mg/dL LAB CHEMISTRY METHOD 07/14/2024 7:25 PM [facility] Creatinine 0.89 0.70 - 1.30 mg/dL LAB CHEMISTRY METHOD 07/14/2024 7:25 PM [facility] eGFR 110 >=60 mL/min/1. 73m2 LAB CHEMISTRY METHOD 07/14/2024 7:25 PM [facility] Comment:Calculation based on the??Chronic Kidney Disease Epidemiology Collaboration (CKD-EPI) equation refit??without adjustment for race. BUN/Creatinine Ratio 18.0 LAB CHEMISTRY METHOD 07/14/2024 7:25 PM [facility] Calcium 9.7 8.5 - 10.5 mg/dL LAB CHEMISTRY METHOD 07/14/2024 7:25 PM [facility] Blood Venous blood specimen / Unknown Venipuncture / Unknown 07/14/2024 6:36 PM EST 07/14/2024 6:58 PM EST Brian Anguiano MD LAB BLOOD ORDERABLES [facility] [address] [place] [address], * XR Foot 3+ Views Right (07/14/2024 6:25 PM EST) Anatomical Region Laterality Modality Lower Extremities, Foot Right Radiogra phic Imaging 07/15/2024 8:16 AM EST Impressions 07/15/2024 8:17 AM EST Impression: 1. No acute osseous abnormality identified. 2. 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 Telerad PA ([id number]) -------- FINAL REPORT -------- Dictated By: Zayda Baker Dictated Date: 07/15/2024 08:16 ET Assigned Physician: Zayda Baker Reviewed and Electronically Signed By: Zayda Baekr Signed Date: 07/15/2024 08:17 ET Workstation ID: [id number] Transcribed By: Self Edit Transcribed Date: 07/15/2024 08:16 ET Narrative 07/15/2024 8:17 AM EST History: Diabetic with right foot pain. Findings: AP, oblique and lateral views of the right foot without comparison studies. The toes are held in flexion at the PIP joints, limiting assessment. No fractures or osseous destructive lesions are identified. No aggressive periostitis is seen. There is bony hypertrophy of the first metatarsal head and narrowing of the first MTP joint and interphalangeal joint of the great toe. The overlying soft tissues are unremarkable. Tibiotalar arthritic changes are partially imaged. Procedure Note Zayda Baker MD - 07/15/2024 History: Diabetic with right foot pain. Findings: AP, oblique and lateral views of the right foot without comparisonstudies. The toes are held in flexion at the PIP joints, limitingassessment. No fractures or osseous destructive lesions are identified. No aggressiveperiostitis is seen. There is bony hypertrophy of the first metatarsalhead and narrowing of the first MTP joint and interphalangeal joint of thegreat toe. The overlying soft tissues are unremarkable. Tibiotalar arthritic changes are partially imaged. IMPRESSION: Impression: 1. No acute osseous abnormality identified. 2. 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 Telerad PA ([id number]) -------- FINAL REPORT -------- Dictated By: Zayda Baker Dictated Date: 07/15/2024 08:16 ET Assigned Physician: Zayda Baker Reviewed and Electronically Signed By: Zayda Baker Signed Date: 07/15/2024 08:17 ET Workstation ID: [id number] Transcribed By: Self Edit Transcribed Date: 07/15/2024 08:16 ET Brian B Anguiano MD IMG XR PROCEDURES documented in this encounter Visit Diagnoses Diagnosis Acute gout of right foot, unspecified cause- Primary documented in this encounter Administered Medications Inactive Administered Medications - up to 3 most recent administrations Medication Order MAR Action Action Date Dose Rate Site ketorolac (TORADOL) injection 30 mg 30 mg, intramuscular, Once, On Sun07/14/24 at 2321, For 1 dose Given 07/14/2024 11:28 PM EST 30 mg Left Deltoid oxyCODONE (ROXICODONE) immediate release tablet 5 mg 5 mg, oral, Once, On Sun07/14/24 at 2317, For 1 dose Given 07/14/2024 11:24 PM EST 5 mg documented in this encounter Discontinued Medications Medication Sig Discontinue Reason Start Date End Da te indomethacin (INDOCIN) 25 mg capsule Take 2 capsules (50 mg total) by mouth 3 (three) times a day for 2 days, THEN 1 capsule (25 mg total) 3 (three) times a day if needed for mild pain or moderate pain for up to 3 days. 07/14/2024 07/14/2024 documented as of this encounter Active and Recently Administered Medications Times are shown in EST. Scheduled Medication Order 07/13/2024 07/14/2024 07/15/2024 ketorolac (TORADOL) injection 30 mg (COMPLETED) 30 mg, intramuscular, Once, On Sun07/14/24 at 2321, For 1 dose 2328 (Given - Provider: Melina Romero RN) oxyCODONE (ROXICODONE) immediate release tablet 5 mg (COMPLETED) 5 mg, oral, Once, On Sun07/14/24 at 2317, For 1 dose 2324 (Given - Provider: Melina Romero, SOMMER) documented in this encounter Care Teams Air Cargo Specialist Relationship Specialty Start Date End Date Elieser Moreno MD [address] [place] [address] [address] JUANA Bunch PCP - General Internal Medicine 05/13/24 documented as of this encounter
--- OUTSIDE RECORDS SUMMARY | 2024-07-18 13:26 | XMS_ITS | Clinical Summary ---
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 02/13/2024 Active FLUoxetine (PROzac) 40 mg capsule Take 1 capsule (40 mg total) by mouth 1 (one) time each day. 04/23/2024 Active hydrOXYzine HCL (ATARAX) 25 mg tablet Take 1 tablet (25 mg total) by mouth 2 (two) times a day if needed. 04/23/2024 Active lisinopriL (PRINIVIL,ZESTRI L) 20 mg tablet Take 1 tablet (20 mg total) by mouth 1 (one) time each day. 02/13/2024 Active QUEtiapine (SEROquel) 100 mg tablet Take 1 tablet (100 mg total) by mouth. at bedtime 03/25/2024 Active amantadine (SYMMETREL) 100 mg capsule Take 1 capsule (100 mg total) by mouth 1 (one) time each day. Active metFORMIN (GLUCOPHAGE) 500 mg tablet Take 1 tablet (500 mg total) by mouth 2 (two) times a day with meals for 20 days. 40 tablet 05/30/2024 Active albuterol HFA (PROAIR HFA ; PROVENTIL HFA ; VENTOLIN HFA) 90 mcg/actuation inhaler Inhale 2 puffs by mouth every 6 (six) hours if needed for wheezing. 1 each 07/01/2024 Active benzonatate (TESSALON) 100 mg capsule Take 1 capsule (100 mg total) by mouth 3 (three) times a day if needed for cough. Do not crush or chew. 12 capsule 07/01/2024 Active indomethacin (INDOCIN) 25 mg capsule Take 2 capsules (50 mg total) by mouth 3 (three) times a day for 2 days, THEN 1 capsule (25 mg total) 3 (three) times a day if needed for mild pain or moderate pain for up to 3 days. 21 capsule 07/14/2024 07/19/2024 Active indomethacin (INDOCIN) 25 mg capsule Take 2 capsules (50 mg total) by mouth 3 (three) times a day for 2 days, THEN 1 capsule (25 mg total) 3 (three) times a day if needed for mild pain or moderate pain for up to 3 days. 21 capsule 07/14/2024 07/14/2024 Discontinued Active Problems No known active problems Encounters Date Type Department Care Team Description 07/14/2024 10:43 PM EST - 07/15/2024 12:15 AM [facility] Emergency [address] [place] [phone] Acute gout of right foot, unspecified cause (Primary Dx) Discharge Disposition: Home or Self Care 07/01/2024 5:38 AM EST - 07/01/2024 8:29 AM [facility] Emergency [address] [place] [phone] Anant Church DO Acute cough (Primary Dx); Mild asthma without complication, unspecified whether persistent Discharge Disposition: Home or Self Care 05/30/2024 7:54 AM EST - 05/30/2024 10:16 AM [facility] Emergency [address] [place] [phone] Stephanie Mckeon DO Hyperglycemia (Primary Dx); Dizziness Discharge Disposition: Home or Self Care 05/13/2024 3:35 PM EST - 05/13/2024 8:09 PM [facility] Emergency [address] [place] [phone] Chronic left hip pain (Primary Dx) Discharge Disposition: Home or Self Care from Last 3 Months Medical History Medical History Date Comments Hypertension Gout Depression Asthma Social History Tobacco Use Types Packs/Day Years Used Date Smoking Tobacco: Never Smokeless Tobacco: Never Tobacco Cessation:Counseling Given: Not Answered Sex and Gender Information Value Date Recorded Sex Assigned at Male 07/01/2024 8:00 AM EST Gender Identity Male 07/01/2024 8:00 AM EST Sexual Orientation Straight 07/01/2024 8: 00 AM EST Job Start Date Occupation Industry Not on file Not on file Not on file Obstetrics History Last Filed Vital Signs Vital Sign Reading [...] Mass Index 32.5 07/14/2024 5:53 PM EST Plan of Treatment Health Maintenance Due Date Last Done Comments Pneumococcal Vaccine: Pediatrics (0 to 5 Years) and At-Risk Patients (6 to 64 Years) (2 of 2 - PCV) 03/15/2018 03/15/2017 COVID-19 Vaccine ( season) 2024 06/04/2021, 09/30/2020, 09/02/2020 Influenza Vaccine (#1) 2024 , 04/20/2020, 04/11/2019, Additional history exists Cholesterol Screening (Lipid Panel) 03/27/2024 Depression Screening 03/27/2024 HIV Screening 03/27/2024 Hepatitis C Screening 03/27/2024 Medicare Annual Wellness Visit 03/27/2024 Social Influencers of Health Screening 03/27/2024 Hypertension/CHF/CAD Annual BMP Blood Test 07/14/2025 07/14/2024, 06/30/2024, 05/29/2024 DTaP,Tdap,and Td Vaccines (3 - Td or Tdap) 10/07/2028 10/07/2018, 06/07/2016 Hepatitis A Vaccines Aged Out 11/17/2020, 05/11/20 20 No longer eligible based on patient's age to complete this topic Hepatitis B Vaccines Completed 11/17/2020, 06/22/2020, 05/11/2020 HIB Vaccines Aged Out No longer eligi ble based on patient's age to complete this topic HPV Vaccines Aged Out No longer eligi ble based on patient's age to complete this topic IPV Vaccines Aged Out No longer eligi ble based on patient's age to complete this topic MMR Vaccines Aged Out No longer eligi ble based on patient's age to complete this topic Meningococcal ACWY Vaccine Aged Out N o longer eligible based on patient's age to complete this topic RSV Immunization Patients Under 20 months Aged Out No longer eligible based on patient's age to complete this topic Varicella Vaccines Aged Out No longer eligible based on patient's age to complete this topic Procedures Procedure Name Priority Date/Time Associated Diagnosis Comments CBC WITH AUTO DIFFERENTIAL STAT 07/14/2024 6:36 PM EST URIC ACID STAT 07/14/2024 6:36 PM EST BASIC METABOLIC PANEL STAT 07/14/2024 6:36 PM EST CBC AND DIFFERENTIAL STAT 07/14/2024 6:36 PM EST XR FOOT 3+ VIEWS RIGHT STAT 6:25 PM EST ECG ANNOTATED 07/01/2024 ECG ANNOTATED 07/01/2024 XR CHEST 2 VIEWS STAT 06/30/2024 9:36 PM EST POCT GLUCOSE BLOOD Routine 06/30/2024 6: 32 PM EST TROPONIN I HIGH SENSITIVITY STAT 06/30/2024 3:15 PM EST ECG 12-LEAD STAT 06/30/2024 3:13 PM EST CBC WITH AUTO DIFFERENTIAL STAT 06/30/2024 1:19 PM EST B-TYPE NATRIURETIC PEPTIDE STAT 06/30/2024 1:19 PM EST MAGNESIUM STAT 06/30/2024 1:19 PM EST LIPASE STAT 06/30/2024 1:19 PM EST COMPREHENSIVE METABOLIC PANEL STAT 06/30/2024 1:19 PM EST CBC AND DIFFERENTIAL STAT 06/30/2024 1:19 PM EST TROPONIN I HIGH SENSITIVITY STAT 06/30/2024 1:19 PM EST ECG 12-LEAD STAT 06/30/2024 1:17 PM EST POCT GLUCOSE BLOOD Routine 05/30/2024 8: 12 AM EST ECG ANNOTATED 05/30/2024 ECG OUTSIDE 05/30/2024 CBC WITH AUTO DIFFERENTIAL STAT 05/29/2024 10:41 PM EST MAGNESIUM STAT 05/29/2024 10:41 PM EST BASIC METABOLIC PANEL STAT 05/29/2024 10:41 PM EST CBC AND DIFFERENTIAL STAT 05/29/2024 10:41 PM EST ECG 12-LEAD STAT 05/29/2024 10:35 PM EST XR KNEE 4+ VIEWS LEFT STAT 05/13/2024 4:39 PM EST XR HIP 2-3 VIEWS LEFT STAT 05/13/2024 4:39 PM EST from Last 3 Months Results * (ABNORMAL) CBC auto differential (07/14/2024 6:36 PM EST) Only the most recent of3 resultswithin the time period is included. Pathologist [facility] WBC 8.0 4.8 - 10.8 K/mcL LAB HEMETOLOGY METHOD 07/14/2024 7:06 PM [facility] RBC 4.70 4.50 - 5.50 M/mcL LAB HEMETOLOGY METHOD 07/14/2024 7:06 PM [facility] Hemoglobin 14.5 13.5 - 17.5 g/dL LAB HEMETOLOGY METHOD 07/14/2024 7:06 PM [facility] Hematocrit 42.8 42.0 - 54.0 % LAB HEMETOLOGY METHOD 07/14/2024 7:06 PM [facility] MCV 91.5 79.0 - 98.0 FL LAB HEMETOLOGY METHOD 07/14/2024 7:06 PM [facility] MCH 31.0 27.0 - 32.0 pcg LAB HEMETOLOGY METHOD 07/14/2024 7:06 PM [facility] MCHC 33.9 32.0 - 37.0 g/dL LAB HEMETOLOGY METHOD 07/14/2024 7:06 PM [facility] RDW 13.4 11.0 - 15.0 % LAB HEMETOLOGY METHOD 07/14/2024 7:06 PM [facility] Platelets 230 130 - 400 K/mcL LAB HEMETOLOGY METHOD 07/14/2024 7:06 PM [facility] MPV 9.8 7.0 - 11.0 FL LAB HEMETOLOGY METHOD 07/14/2024 7:06 PM [facility] NRBC 0.0 <1.0 % LAB HEMETOLOGY METHOD 07/14/2024 7:06 PM [facility] NRBC Absolute 0.00 <0.10 K/mcL LAB HEMETOLOGY METHOD 07/14/2024 7:06 PM [facility] Neutrophils Relative 60.4 % LAB HEMETOLOGY METHOD 07/14/2024 7:06 PM [facility] Lymphocytes Relative 28.7 % LAB HEMETOLOGY METHOD 07/14/2024 7:06 PM [facility] Monocytes Relative 8.8 % LAB HEMETOLOGY METHOD 07/14/2024 7:06 PM [facility] Eosinophils Relative 1.1 % LAB HEMETOLOGY METHOD 07/14/2024 7:06 PM [facility] Basophils Relative 0.4 % LAB HEMETOLOGY METHOD 07/14/2024 7:06 PM [facility] Immature Granulocytes Relative 0.6 % LAB HEMETOLOGY METHOD 07/14/2024 7:06 PM [facility] Neutrophils Absolute 4.85 1.50 - 7.00 K/mcL LAB HEMETOLOGY METHOD 07/14/2024 7:06 PM [facility] Lymphocytes Absolute 2.31 1.00 - 5.00 K/mcL LAB HEMETOLOGY METHOD 07/14/2024 7:06 PM [facility] Monocytes Absolute 0.71 0.20 - 1.00 K/mcL LAB HEMETOLOGY METHOD 07/14/2024 7:06 PM [facility] Eosinophils Absolute 0.09 0.00 - 0.50 K/mcL LAB HEMETOLOGY METHOD 07/14/2024 7:06 PM [facility] Basophils Absolute 0.03 0.00 - 0.20 K/mcL LAB HEMETOLOGY METHOD 07/14/2024 7:06 PM [facility] Immature Granulocytes Absolute 0.05(H) 0.00 - 0.03 K/mcL LAB HEMETOLOGY METHOD 07/14/2024 7:06 PM [facility] Blood Venous blood specimen / Unknown Venipuncture / Unknown 07/14/2024 6:36 PM EST 07/14/2024 6:58 PM EST Brian Anguiano MD LAB BLOOD ORDERABLES Performing Organization Address City/[facility]/ZIP Co de Phone Number [facility] [address] [place] [address], * Uric acid (07/14/2024 6:36 PM EST) Pathologist [facility] Uric Acid 8.7 3.7 - 9.2 mg/dL LAB CHEMISTRY METHOD 07/14/2024 7:25 PM EST [facility] Blood Venous blood specimen / Unknown Venipuncture / Unknown 07/14/2024 6:36 PM EST 07/14/2024 6:58 PM EST Brian Anguiano MD LAB BLOOD ORDERABLES Performing Organization Address [facility]/ZIP Co de Phone Number [facility] [address] [place] [address], [place] [phone] * (ABNORMAL) Basic metabolic panel (07/14/2024 6:36 PM EST) Only the most recent of2 resultswithin the time period is included. Pathologist [facility] Sodium 140 133 - 145 mmol/L LAB CHEMISTRY METHOD 07/14/2024 7:25 PM [facility] Potassium 3.7 3.5 - 5.5 mmol/L LAB CHEMISTRY METHOD 07/14/2024 7:25 PM [facility] Chloride 104 96 - 110 mmol/L LAB CHEMISTRY METHOD 07/14/2024 7:25 PM [facility] CO2 29 21 - 32 mmol/L LAB CHEMISTRY METHOD 07/14/2024 7:25 PM [facility] Anion Gap 7 3 - 11 LAB CHEMISTRY METHOD 07/14/2024 7:25 PM [facility] Glucose 131(H) 70 - 100 mg/dL LAB CHEMISTRY METHOD 07/14/2024 7:25 PM [facility] BUN 16 5 - 25 mg/dL LAB CHEMISTRY METHOD 07/14/2024 7:25 PM EST [facility] Creatinine 0.89 0.70 - 1.30 mg/dL LAB CHEMISTRY METHOD 07/14/2024 7:25 PM EST [facility] eGFR 110 >=60 mL/min/1. 73m2 LAB CHEMISTRY METHOD 07/14/2024 7:25 PM EST [facility] Comment:Calculation based on the??Chronic Kidney Disease Epidemiology Collaboration (CKD-EPI) equation refit??without adjustment for race. BUN/Creatinine Ratio 18.0 LAB CHEMISTRY METHOD 07/14/2024 7:25 PM EST [facility] Calcium 9.7 8.5 - 10.5 mg/dL LAB CHEMISTRY METHOD 07/14/2024 7:25 PM [facility] Blood Venous blood specimen / Unknown Venipuncture / Unknown 07/14/2024 6:36 PM EST 07/14/2024 6:58 PM EST Brian Anguiano MD LAB BLOOD ORDERABLES [facility] [address] [place] [address], * XR Foot 3+ Views Right (07/14/2024 6:25 PM EST) Anatomical Region Laterality Modality Lower Extremities, Foot Right Radiogra phic Imaging 07/15/2024 8:16 AM EST Impressions 07/15/2024 8:17 AM EST Impression: 1. No acute osseous abnormality identified. 2. 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 Telerad JOLENE ([id number]) -------- FINAL REPORT -------- Dictated By: Zayda Baker Dictated Date: 07/15/2024 08:16 ET Assigned Physician: Zayda Baker Reviewed and Electronically Signed By: Zayda Baker Signed Date: 07/15/2024 08:17 ET Workstation ID: [id number] Transcribed By: Self Edit Transcribed Date: 07/15/2024 [...] in the great toe and tibiotalar joint. Teleheber FERNÁNDEZ ([id number]) -------- FINAL REPORT -------- Dictated By: Zayda Baker Dictated Date: 07/15/2024 08:16 ET Assigned Physician: Zayda Baker Reviewed and Electronically Signed By: Zayda Baker Signed Date: 07/15/2024 08:17 ET Workstation ID: [id number] Transcribed By: Self Edit Transcribed Date: 07/15/2024 08:16 ET Brian Anguiano MD IMG XR PROCEDURES * ECG-Annotated (07/01/2024) Only the most recent of3 resultswithin the time period is included. Provider Onbase ECG ORDERABLES * XR Chest 2 Views (06/30/2024 9:36 PM EST) Anatomical Region Laterality Modality Body Radiographic Sanaz ging 07/01/2024 8:33 AM EST Impressions 07/01/2024 8:33 AM EST Hypoventilatory exam. ??No acute findings. -------- FINAL REPORT -------- Dictated By: Loi Spencer Dictated Date: 07/01/2024 08:33 ET Assigned Physician: Loi Spencer Reviewed and Electronically Signed By: Loi Spencer Signed Date: 07/01/2024 08:33 ET Workstation ID: [id number] Transcribed By: Self Edit Transcribed Date: 07/01/2024 08:33 ET Narrative 07/01/2024 8:33 AM EST PA and lateral views of the chest dated 06/30/2024. HISTORY: chest pain. COMPARISON: None. FINDINGS: Lungs are hypoventilatory but clear. ??Pleural spaces and pulmonary vasculature are normal. ??Cardiomediastinal contours are normal. ??Mild degenerative changes of the spine. Procedure Note Loi Spencer MD - 07/01/2024 PA and lateral views of the chest dated 06/30/2024. HISTORY: chest pain. COMPARISON: None. FINDINGS: Lungs are hypoventilatory but clear. Pleural spaces and pulmonaryvasculature are normal. Cardiomediastinal contours are normal. Milddegenerative changes of the spine. IMPRESSION: Hypoventilatory exam. No acute findings. -------- FINAL REPORT -------- Dictated By: Loi Spencer Dictated Date: 07/01/2024 08:33 ET Assigned Physician: Loi Spencer Reviewed and Electronically Signed By: Loi Spencer Signed Date: 07/01/2024 08:33 ET Workstation ID: [id number] Transcribed By: Self Edit Transcribed Date: 07/01/2024 08:33 ET Terry Montanez MD IMG XR PROCEDURES * (ABNORMAL) POCT Glucose, blood (06/30/2024 6:32 PM EST) Only the most recent of2 resultswithin the time period is included. [facility] Glucose POCT 126(H) 70 - 100 mg/dL 06/30/2024 6:33 PM EST [facility] Blood Capillary blood specimen / Unknown 06/30/2024 6:32 PM EST 06/30/2024 6:35 PM EST Generic Provider Poct LAB POINT OF CARE TEST DOCKED DEVICE UNSOLICITED RESULTS Performing Organization Address [facility]/ZIP Co de Phone Number [facility] [address] [place] [address], [place] [phone] * Troponin I high sensitivity (06/30/2024 3:15 PM EST) Only the most recent of2 resultswithin the time period is included. [facility] High Sensitivity Troponin I 5 <=79 ng/L LAB CHEMISTRY METHOD 06/30/2024 4:31 PM EST [facility] Blood Venous blood specimen / Unknown Venipuncture / Unknown 06/30/2024 3:15 PM EST 06/30/2024 3:54 PM EST Narrative [facility] - 06/30/2024 4:31 PM EST High levels of biotin in samples may falsely decrease hsTroponin values. ??Use caution when interpreting hsTroponin results in patients taking biotin who exhibit renal impairment (eGFR <60) or in patients taking more than 20 mg/day of biotin. Terry Montanez MD LAB BLOOD ORDERAB LES Performing Organization Address [facility]/ZIP Co de Phone Number [facility] [address] [place] [address], [place] [phone] * ECG 12 lead (06/30/2024 3:13 PM EST) Only the most recent of3 resultswithin the time period is included. [facility] Ventricular Rate ECG 102 BPM GEMUSE Atrial Rate 102 BPM GEMUSE P-R Interval 152 ms GEMUSE QRS Duration 86 ms GEMUSE Q-T Interval 366 ms GEMUSE QTc 477 ms GEMUSE P Wave [place] 40 degrees GEMUSE R [place] 6 degrees GEMUSE T [place] 25 degrees GEMUSE ECG Interpretation Sinus tachycardia Minimal voltage criteria for LVH, may be normal variant Borderline ECG When compared with ECG of 30-JUN-2024 13:17, (unconfirmed) No significant change was found Confirmed by Mango FERGUSON JOHN ([id number]) on 06/30/2024 10:27:16 PM GEMUSE 06/30/2024 3:13 PM EST 06/30/2024 10:27 PM EST Terry Montanez MD ECG ORDERABLES GEMUSE * B-type natriuretic peptide (06/30/2024 1:19 PM EST) BNP 2 <=100 pcg/mL LAB CHEMISTRY METHOD 06/30/2024 2:39 PM EST [facility] Blood Venous blood specimen / Unknown Venipuncture / Unknown 06/30/2024 1:19 PM EST 06/30/2024 1:57 PM EST Terry Montanez MD LAB BLOOD ORDERAB LES Performing Organization Address City/[facility]/ZIP Co de Phone Number [facility] [address] [place] [address], * (ABNORMAL) Magnesium (06/30/2024 1:19 PM EST) Only the most recent of2 resultswithin the time period is included. Magnesium 1.8(L) 1.9 - 2.6 mg/dL LAB CHEMISTRY METHOD 06/30/2024 2:40 PM EST [facility] Blood Venous blood specimen / Unknown Venipuncture / Unknown 06/30/2024 1:19 PM EST 06/30/2024 1:58 PM EST Terry Montanez MD LAB BLOOD ORDERAB LES Performing Organization Address City/[facility]/ZIP Co de Phone Number [facility] [address] [place] [address], [place] [phone] * Lipase (06/30/2024 1:19 PM EST) [facility] Lipase 50 13 - 75 unit/L LAB CHEMISTRY METHOD 06/30/2024 2:40 PM EST [facility] Blood Venous blood specimen / Unknown Venipuncture / Unknown 06/30/2024 1:19 PM EST 06/30/2024 1:58 PM EST Terry Montanez MD LAB BLOOD ORDERAB LES Performing Organization Address [facility]/ZIP Co de Phone Number [facility] [address] [place] [address], [place] [phone] * (ABNORMAL) Comprehensive metabolic panel (06/30/2024 1:19 PM EST) [facility] Sodium 138 133 - 145 mmol/L LAB CHEMISTRY METHOD 06/30/2024 2:40 PM [facility] Potassium 4.4 3.5 - 5.5 mmol/L LAB CHEMISTRY METHOD 06/30/2024 2:40 PM [facility] Chloride 104 96 - 110 mmol/L LAB CHEMISTRY METHOD 06/30/2024 2:40 PM [facility] CO2 29 21 - 32 mmol/L LAB CHEMISTRY METHOD 06/30/2024 2:40 PM [facility] Anion Gap 5 3 - 11 LAB CHEMISTRY METHOD 06/30/2024 2:40 PM [facility] Glucose 165(H) 70 - 100 mg/dL LAB CHEMISTRY METHOD 06/30/2024 2:40 PM [facility] BUN 18 5 - 25 mg/dL LAB CHEMISTRY METHOD 06/30/2024 2:40 PM [facility] Creatinine 1.39(H) 0.70 - 1.30 mg/dL LAB CHEMISTRY METHOD 06/30/2024 2:40 PM [facility] eGFR 65 >=60 mL/min/1. 73m2 LAB CHEMISTRY METHOD 06/30/2024 2:40 PM [facility] Comment:Calculation based on the??Chronic Kidney Disease Epidemiology Collaboration (CKD-EPI) equation refit??without adjustment for race. BUN/Creatinine Ratio 12.9 LAB CHEMISTRY METHOD 06/30/2024 2:40 PM [facility] Calcium 10.0 8.5 - 10.5 mg/dL LAB CHEMISTRY METHOD 06/30/2024 2:40 PM [facility] AST (SGOT) 91(H) 10 - 42 unit/L LAB CHEMISTRY METHOD 06/30/2024 2:40 PM [facility] ALT (SGPT) 190(H) 10 - 60 unit/L LAB CHEMISTRY METHOD 06/30/2024 2:40 PM [facility] Alkaline Phosphatase 84 42 - 121 unit/L LAB CHEMISTRY METHOD 06/30/2024 2:40 PM [facility] Total Protein 7.5 6.0 - 8.0 g/dL LAB CHEMISTRY METHOD 06/30/2024 2:40 PM [facility] Albumin 4.1 3.2 - 5.0 g/dL LAB CHEMISTRY METHOD 06/30/2024 2:40 PM [facility] Total Bilirubin 0.8 0.0 - 1.4 mg/dL LAB CHEMISTRY METHOD 06/30/2024 2:40 PM [facility] Blood Venous blood specimen / Unknown Venipuncture / Unknown 06/30/2024 1:19 PM EST 06/30/2024 1:58 PM EST Terry Montanez MD LAB BLOOD ORDERAB LES [facility] [address] [place] [address], * ECG-Outside (05/30/2024) Provider Onbase MD ECG ORDERABLES * XR Knee 4+ Views Left (05/13/2024 4:39 PM EST) Anatomical Region Laterality Modality Lower Extremities, Knee Left Radiogra phic Imaging 05/13/2024 4:52 PM EST Impressions 05/13/2024 4:57 PM EST No acute fracture or subluxation. Chronic abnormality of the femoral head on both sides could reflect sequelae from developmental dysplasia or old Gsda-Fwyzv-Nowkgnr disease. -------- FINAL REPORT -------- Dictated By: Trev Hamm Dictated Date: 05/13/2024 16:52 ET Assigned Physician: Trev Hamm Reviewed and Electronically Signed By: Trev Hamm Signed Date: 05/13/2024 16:57 ET Workstation ID: [id number] Transcribed By: Self Edit Transcribed Date: 05/13/2024 16:52 ET Narrative 05/13/2024 4:57 PM EST EXAMINATION: PELVIS LEFT HIP LEFT KNEE CLINICAL INFORMATION: Pain. Old injury COMPARISON: None. TECHNIQUE: Frontal view of the pelvis. 2 views left hip 4 views left knee FINDINGS: Pelvis: The left iliac wing is not completely included. There is transitional partial lumbarized aeration at the lumbosacral junction greater on left than right. No diastases of the symphysis or SI joints. The acetabula are shallow. The femoral heads are partially uncovered right greater than left. The femoral heads are somewhat flattened. No acute pelvic fracture. No evidence of a pelvic mass or collection. Left hip: The femoral head contour is intact. As described there is some flattening. The acetabulum is slightly shallow. No acute left proximal femoral fracture. Left knee: No acute fracture or subluxation. No suspicious focal lesion. The joint spaces are preserved. There is a smooth ossific density adjacent to the lateral femoral condyle No significant joint fluid Procedure Note Trev Hamm MD - 05/13/2024 EXAMINATION: PELVIS LEFT HIP LEFT KNEE CLINICAL INFORMATION: Pain. Old injury COMPARISON: None. TECHNIQUE: Frontal view of the pelvis. 2 views left hip 4 views left knee FINDINGS: Pelvis: The left iliac wing is not completely included. There is transitional partial lumbarized aeration at the lumbosacraljunction greater on left than right. No diastases of the symphysis or SI joints. The acetabula are shallow. The femoral heads are partially uncovered rightgreater than left. The femoral heads are somewhat flattened. No acute pelvic fracture. No evidence of a pelvic mass or collection. Left hip: The femoral head contour is intact. As described there is some flattening.The acetabulum is slightly shallow. No acute left proximal femoral fracture. Left knee: No acute fracture or subluxation. No suspicious focal lesion. The jointspaces are preserved. There is a smooth ossific density adjacent to the lateral femoralcondyle No significant joint fluid IMPRESSION: No acute fracture or subluxation. Chronic abnormality of the femoral headon both sides could reflect sequelae from developmental dysplasia or ebrVgit-Xjpxq-Mrouhln disease. -------- FINAL REPORT -------- Dictated By: Trev Hamm Dictated Date: 05/13/2024 16:52 ET Assigned Physician: Trev Hamm Reviewed and Electronically Signed By: Trev Hamm Signed Date: 05/13/2024 16:57 ET Workstation ID: [id number] Transcribed By: Self Edit Transcribed Date: 05/13/2024 16:52 ET Joaquim FERNÁNDEZ IMG XR PROCEDURES * XR Hip 2-3 Views Left (05/13/2024 4:39 PM EST) Anatomical Region Laterality Modality Lower Extremities, Hip Left Radiograp hic Imaging 05/13/2024 4:52 PM EST Impressions 05/13/2024 4:57 PM EST No acute fracture or subluxation. Chronic abnormality of the femoral head on both sides could reflect sequelae from developmental dysplasia or old Meat-Vepyb-Kcepsqz disease. -------- FINAL REPORT -------- Dictated By: Trev Hamm Dictated Date: 05/13/2024 16:52 ET Assigned Physician: Trev Hamm Reviewed and Electronically Signed By: Trev Hamm Signed Date: 05/13/2024 16:57 ET Workstation ID: [id number] Transcribed By: Self Edit Transcribed Date: 05/13/2024 16:52 ET Narrative 05/13/2024 4:57 PM EST EXAMINATION: PELVIS LEFT HIP LEFT KNEE CLINICAL INFORMATION: Pain. Old injury COMPARISON: None. TECHNIQUE: Frontal view of the pelvis. 2 views left hip 4 views left knee FINDINGS: Pelvis: The left iliac wing is not completely included. There is transitional partial lumbarized aeration at the lumbosacral junction greater on left than right. No diastases of the symphysis or SI joints. The acetabula are shallow. The femoral heads are partially uncovered right greater than left. The femoral heads are somewhat flattened. No acute pelvic fracture. No evidence of a pelvic mass or collection. Left hip: The femoral head contour is intact. As described there is some flattening. The acetabulum is slightly shallow. No acute left proximal femoral fracture. Left knee: No acute fracture or subluxation. No suspicious focal lesion. The joint spaces are preserved. There is a smooth ossific density adjacent to the lateral femoral condyle No significant joint fluid Procedure Note Trev Hamm MD - 05/13/2024 EXAMINATION: PELVIS LEFT HIP LEFT KNEE CLINICAL INFORMATION: Pain. Old injury COMPARISON: None. TECHNIQUE: Frontal view of the pelvis. 2 views left hip 4 views left knee FINDINGS: Pelvis: The left iliac wing is not completely included. There is transitional partial lumbarized aeration at the lumbosacraljunction greater on left than right. No diastases of the symphysis or SI joints. The acetabula are shallow. The femoral heads are partially uncovered rightgreater than left. The femoral heads are somewhat flattened. No acute pelvic fracture. No evidence of a pelvic mass or collection. Left hip: The femoral head contour is intact. As described there is some flattening.The acetabulum is slightly shallow. No acute left proximal femoral fracture. Left knee: No acute fracture or subluxation. No suspicious focal lesion. The jointspaces are preserved. There is a smooth ossific density adjacent to the lateral femoralcondyle No significant joint fluid IMPRESSION: No acute fracture or subluxation. Chronic abnormality of the femoral headon both sides could reflect sequelae from developmental dysplasia or tukMytm-Loaeh-Uzhtxsh disease. 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
--- OUTSIDE RECORDS SUMMARY | 2024-07-18 13:26 | XMS_ITS | Encounter Summary ---
Author Organization [facility] Address [address] [place] [address] Care Team Providers Care Medical Radiation Tech Name Role Phone Elieser Moreno MD Primary Care Provider [phone] Reason for Visit * Reason Comments Chest Pain Patient reports ches t tightness and [place] Encounter Details Date Type Department Care Team (Late st Contact Info) Description 07/01/2024 5:38 AM EST - 07/01/2024 8:29 AM EST [facility] Emergency [address] [place] [id number] Anant Church, DO [address] [place] [address] Acute cough (Primary Dx); Mild asthma without complication, unspecified whether persistent Discharge Disposition: Home or Self Care Social [...] Sign Reading Time Taken Comments Blood Pressure 132/89 07/01/2024 5:43 AM EST Pulse 101 07/01/2024 5:43 AM EST Temperature 37.1 ??C (98.8 ??F) 07/01/2024 5:43 AM ES T Respiratory Rate 18 07/01/2024 5:43 AM EST Oxygen Saturation 98% 07/01/2024 5:43 AM EST Inhaled Oxygen Concentration - - Weight 118 kg (260 lb) 06/30/2024 1:01 PM EST Height 190.5 cm (6' 3 ) 06/30/2024 1:01 PM EST Body Mass Index 32.5 06/30/2024 1:01 PM EST documented in this encounter Functional [...] encounter Discharge Instructions * Discharge Instructions* JOLENE Wharton - 07/01/2024 7:24 AM EST Your evaluated emergency room today with cough and asthma symptoms. Your exam and results were reassuring. Use albuterol inhaler as directed. Take Tessalon Perles as directed for cough. Please followup with your primary care provider regarding this visit. Please return to the emergency department if you develop new or worsening symptoms. Charge instructions * Attachments The following attachments cannot be sent through Care Everywhere. * Cough (Nepali) documented in this encounter Medications at Time [...] (two) times a day if needed. 04/23/2024 lisinopriL (PRINIVIL,ZESTRIL) 20 mg tablet Take 1 tablet (20 mg total) by mouth 1 (one) time each day. 02/13/2024 QUEtiapine (SEROquel) 100 mg tablet Take 1 tablet (100 mg total) by mouth. at bedtime 03/25/2024 documented as of this encounter Ordered Prescriptions Prescription Sig Dispensed Refills Start Date End Da te benzonatate (TESSALON) 100 mg capsule Take 1 capsule (100 mg total) by mouth 3 (three) times a day if needed for cough. Do not crush or chew. 12 capsule 07/01/2024 albuterol HFA (PROAIR HFA ; PROVENTIL HFA ; VENTOLIN HFA) 90 mcg/actuation inhaler Inhale 2 puffs by mouth every 6 (six) hours if needed for wheezing. 1 each 07/01/2024 documented in this encounter Discharge Disposition Disposition Code Departure Means Destination Comment s Home or Self Care documented in this encounter Progress Notes * Elizabet Saenz RN - 06/30/2024 1:00 PM EST Patient reports he was [place] the mall and began to experience chest tightness and wheezing, patient reports he has not been using his inhaler recently. * Anant Church DO - 06/30/2024 12:45 PM EST Emergency Medicine Note Patient Name: Adam Montesinos Initial Evaluation: 06/30/2024 : 1980 Patient's PCP: Elieser Moreno MD Emergency Physician: JOLENE Wharton History of Present Illness Chief Complaint: Chief Complaint Patient presents with Chest Pain Patient reports chest tightness and wheezing when walking [place] the mall HPI: This is a 43-year-old male with past medical history of hypertension, diabetes, asthma presenting today with complaint of cough and asthma symptoms. Patient reports for the past 3 weeks he has had a nonproductive cough, also reports headache. Reports he lost his albuterol inhaler he is unable to use it at home. Reports chest pain with coughing, no chest pain at rest. His 1 episode of diarrhea last night. Denies recent fevers, lightheadedness dizziness, visual changes, abdominal pain, nausea vomiting, weakness or paresthesias. ROS: I have performed a ROS with the pertinent positives and negatives documented in the history ofpresent illness. Previous History Past Medical History: Diagnosis Date Asthma Depression Gout Hypertension History reviewed. No pertinent surgical history. Social History Tobacco Use Smoking status: Never Smokeless tobacco: Never No family history on file. has No Known Allergies. No current facility-administered medications on file prior to encounter. Current Outpatient Medications on File Prior to Encounter Medication Sig Dispense Refill allopurinoL (ZYLOPRIM) 300 mg tablet Take 1 tablet (300 mg total) by mouth 1 (one) time each day. amantadine (SYMMETREL) 100 mg capsule Take 1 capsule (100 mg total) by mouth 1 (one) time each day. FLUoxetine (PROzac) 40 mg capsule Take 1 [...] Triage Vitals Temp Heart Rate Resp BP 06/30/24 1301 06/30/24 1301 06/30/24 1301 06/30/24 1301 36.9 ??C (98.4 ??F) (!) 117 22 (!) 133/118 SpO2 Temp Source Heart Rate Source Patient Position 06/30/24 1301 06/30/24 1831 06/30/24204806/30/242048 95 % Oral Monitor Sitting BP Location FiO2 (%) 06/30/242048 -- Left arm General: awake, calm, cooperative, in no acute distress. Skin: warm, dry, no diaphoresis. Respiratory: Mild expiratory wheezing noted in lower lung sanchez, no diffuse wheezing, no increasedwork of breathing or shuttle repairer muscle use Cardiovascular: regular rate and rhythm, no peripheral edema. Equal pulses in all four extremities. Gastrointestinal: Soft, nondistended, nontender, without rebound tenderness or guarding. Normoactive bowel sounds. MSK: Moving all extremities spontaneously, ambulatory. Neurologic: Awake, alert, and oriented x3. No focal deficits. Psychiatric: Appropriate mood and affect Results Labs Reviewed COMPREHENSIVE METABOLIC PANEL - Abnormal Result Value Sodium 138 Potassium 4.4 Chloride 104 CO2 29 Anion Gap 5 Glucose 165 (*) BUN 18 Creatinine 1.39 (*) eGFR 65 BUN/Creatinine Ratio 12.9 Calcium 10.0 AST (SGOT) 91 (*) ALT (SGPT) 190 (*) Alkaline Phosphatase 84 Total Protein 7.5 Albumin 4.1 Total Bilirubin 0.8 MAGNESIUM - Abnormal Magnesium 1.8 (*) POCT GLUCOSE, BLOOD - Abnormal Glucose POCT 126 (*) TROPONIN I HIGH SENSITIVITY - Normal High Sensitivity Troponin I 5 Narrative: High levels of biotin in samples may falsely decrease hsTroponin values. Use caution when interpreting hsTroponin results in patients taking biotin who exhibit renal impairment (eGFR <60) or in patients taking more than 20 mg/day of biotin. TROPONIN I HIGH SENSITIVITY - Normal High Sensitivity Troponin I 5 Narrative: High levels of biotin in samples may falsely decrease hsTroponin values. Use caution when interpreting hsTroponin results in patients taking biotin who exhibit renal impairment (eGFR <60) or in patients taking more than 20 mg/day of biotin. LIPASE - Normal Lipase 50 B-TYPE NATRIURETIC PEPTIDE - Normal BNP 2 CBC AND DIFFERENTIAL Narrative: The following orders were created for panel order CBC and differential. Procedure Abnormality Status --------- ------ CBC auto differential[[id number]] Final result Please view results for these tests on the individual orders. CBC WITH AUTO DIFFERENTIAL WBC 5.7 RBC 4.80 Hemoglobin 15.1 Hematocrit 45.0 MCV 94.1 MCH 31.6 MCHC 33.6 RDW 13.6 Platelets 234 MPV 9.7 NRBC 0.0 NRBC Absolute 0.00 Neutrophils Relative 57.2 Lymphocytes Relative 32.4 Monocytes Relative 8.2 Eosinophils Relative 1.1 Basophils Relative 0.7 Immature Granulocytes Relative 0.4 Neutrophils Absolute 3.27 Lymphocytes Absolute 1.85 Monocytes Absolute 0.47 Eosinophils Absolute 0.06 Basophils Absolute 0.04 Immature Granulocytes Absolute 0.02 Abnormal Labs Reviewed COMPREHENSIVE METABOLIC PANEL - Abnormal; Notable for the following components: Result Value Glucose 165 (*) Creatinine 1.39 (*) AST (SGOT) 91 (*) ALT (SGPT) 190 (*) All other components within normal limits MAGNESIUM - Abnormal; Notable for the following components: Magnesium 1.8 (*) All other components within normal limits POCT GLUCOSE, BLOOD - Abnormal; Notable for the following components: Glucose POCT 126 (*) All other components within normal limits XR Chest 2 Views (Results Pending) EKG Interpretation Initial EKG showing sinus tachycardia at a rate of 103 bpm, no ischemic changes are noted, no significant changes when compared from prior study from 05/30/2024. Repeat EKG showing sinus tachycardia at 102 bpm, no ischemic changes Critical Care Time None ? Differential Diagnosis Asthma exacerbation, viral syndrome, STEMI, STEMI, PE, costochondritis, pneumothorax, pneumonia Medical Decision Making 43-year-old male presenting with complaint of shortness of breath, chest pain with coughing. On exam patient alert and oriented he is in no acute distress, hemodynamically stable. Initially tachycardic at 117 currently 101. He is saturating 98% on room air with a respiratory rate of 18. There are mild expiratory wheezes noted in lower lung sanchez, no diffuse wheezing, no increased work of breathing or shuttle repairer muscle use. Labs remarkable for creatinine 1.39, AST/ALT 91/190, mag 1.8, troponins are flat at 5. Low suspicion for PE at this time patient reports these are his typical asthma symptoms and he has not uses an albuterol inhaler. Medications acetaminophen (TYLENOL) tablet 1,000 mg (has no administration in time range) benzonatate (TESSALON) capsule 100 mg (has no administration in time range) ipratropium-albuteroL (DUONEB) 0.5-2.5 mg/3 mL nebulizer solution 3 mL (has no administration in time range) ED Course as of 07/01/24 0732 SunJul 01, 2024 0723 ECG-Outside [] ED Course User Index [] Anant Church DO Clinical Impressions as of 07/01/24 0732 Acute cough Mild asthma without complication, unspecified whether persistent Procedures Procedures Diagnosis 1. Acute cough 2. Mild asthma without complication, unspecified whether persistent Disposition Discharge ED Prescriptions Medication Sig Dispense Start Date End Date Auth. Provider albuterol HFA (PROAIR HFA ; PROVENTIL HFA ; VENTOLIN HFA) 90 mcg/actuation inhaler Inhale 2 puffs by mouth every 6 (six) hours if needed for wheezing. 1 each 07/01/2024 -- JOLENE Wharton benzonatate (TESSALON) 100 mg capsule Take 1 capsule (100 mg total) by mouth 3 (three) times a day if needed for cough. Do not crush or chew. 12 capsule 07/01/2024 -- JOLENE Wharton Physician Attestation This is a split/shared visit with JOLENE Wharton. I personally performed the medical decision making (MDM) for the care of this patient on 07/01/24 as documented below Patient seen and examined. He has had a cough for about 3 weeks. He is out of his inhaler. He has some pain when he coughs in his chest but otherwise no pleurisy. Feels like he is having his asthma. He thinks he may have had a cold at the beginning of this 3-week. But he cannot quite remember. He does have a spastic cough and slightly prolonged expiration but no overt wheezing. He is resting comfortably. He has no leg symptoms. Do not think he needs any further workup to evaluate for PE. No evidence of CHF. His ACS workup shows a nonischemic EKG and normal troponin x 2. Chest x-ray is not showing any acute cardiopulmonary process. Refill of his albuterol at pharmacy will be done. Anant Church DO 07/01/24 7:34 AM EST DO Yudy Santiago PA 07/01/24 0732 Anant Church DO 07/01/24 0738 documented in this encounter Plan of Treatment Not on file documented as of this encounter Procedures Procedure Name Priority Date/Time Associated Diagnosis Comments ECG ANNOTATED 07/01/2024 ECG ANNOTATED 07/01/2024 XR CHEST 2 VIEWS STAT 06/30/2024 9:36 PM EST POCT GLUCOSE BLOOD Routine 06/30/2024 6: 32 PM EST TROPONIN I HIGH SENSITIVITY STAT 06/30/2024 3:15 PM EST ECG 12-LEAD STAT 06/30/2024 3:13 PM EST TROPONIN I HIGH SENSITIVITY STAT 06/30/2024 1:19 PM EST CBC WITH AUTO DIFFERENTIAL STAT 06/30/2024 1:19 PM EST CBC AND DIFFERENTIAL STAT 06/30/2024 1:19 PM EST B-TYPE NATRIURETIC PEPTIDE STAT 06/30/2024 1:19 PM EST MAGNESIUM STAT 06/30/2024 1:19 PM EST LIPASE STAT 06/30/2024 1:19 PM EST COMPREHENSIVE METABOLIC PANEL STAT 06/30/2024 1:19 PM EST ECG 12-LEAD STAT 06/30/2024 1:17 PM EST documented in this encounter Results * ECG-Annotated (07/01/2024) Provider Onbase MD ECG ORDERABLES * ECG-Annotated (07/01/2024) Provider Onbase ECG ORDERABLES * XR Chest [...] Signed Date: 07/01/2024 08:33 ET Workstation ID: [id number] Transcribed By: Self Edit Transcribed Date: 07/01/2024 [...] Signed Date: 07/01/2024 08:33 ET Workstation ID: [id number] Transcribed By: Self Edit Transcribed Date: 07/01/2024 08:33 ET Terry Montanez MD IMG XR PROCEDURES * (ABNORMAL) POCT Glucose, blood (06/30/2024 6:32 PM EST) [facility] Glucose POCT 126(H) 70 - 100 mg/dL 06/30/2024 6:33 PM EST [facility] Blood Capillary blood specimen / Unknown 06/30/2024 6:32 PM EST 06/30/2024 6:35 PM EST Generic Provider Poct LAB POINT OF CARE TEST DOCKED DEVICE UNSOLICITED RESULTS [facility] [address] [place] [address], [place] [phone] * Troponin I high sensitivity (06/30/2024 3:15 PM EST) [facility] High Sensitivity Troponin I 5 <=79 ng/L LAB CHEMISTRY METHOD 06/30/2024 4:31 PM EST [facility] Blood Venous blood specimen / Unknown Venipuncture / Unknown 06/30/2024 3:15 PM EST 06/30/2024 3:54 PM EST Narrative [facility] - 06/30/2024 4:31 PM EST High levels of biotin in samples may falsely decrease hsTroponin values. ??Use caution when interpreting hsTroponin results in patients taking biotin who exhibit renal impairment (eGFR <60) or in patients taking more than 20 mg/day of biotin. Terry Montanez MD LAB BLOOD ORDERAB LES [facility] [address] [place] [address], [place] [phone] * ECG 12 lead (06/30/2024 3:13 PM EST) [facility] Ventricular Rate ECG 102 BPM GEMUSE Atrial Rate 102 BPM GEMUSE P-R Interval 152 ms GEMUSE QRS Duration 86 ms GEMUSE Q-T Interval 366 ms GEMUSE QTc 477 ms GEMUSE P Wave [place] 40 degrees GEMUSE R [place] 6 degrees GEMUSE T [place] 25 degrees GEMUSE ECG Interpretation Sinus tachycardia Minimal voltage criteria for LVH, may be normal variant Borderline ECG When compared with ECG of 30-JUN-2024 13:17, (unconfirmed) No significant change was found Confirmed by Mango FERGUSON JOHN ([id number]) on 06/30/2024 10:27:16 PM GEMUSE 06/30/2024 3:13 PM EST 06/30/2024 10:27 PM EST Terry Montanez MD ECG ORDERABLES GEMUSE * CBC auto differential (06/30/2024 1:19 PM EST) WBC 5.7 4.8 - 10.8 K/mcL LAB HEMETOLOGY METHOD 06/30/2024 2:13 PM [facility] RBC 4.80 4.50 - 5.50 M/mcL LAB HEMETOLOGY METHOD 06/30/2024 2:13 PM [facility] Hemoglobin 15.1 13.5 - 17.5 g/dL LAB HEMETOLOGY METHOD 06/30/2024 2:13 PM [facility] Hematocrit 45.0 42.0 - 54.0 % LAB HEMETOLOGY METHOD 06/30/2024 2:13 PM [facility] MCV 94.1 79.0 - 98.0 FL LAB HEMETOLOGY METHOD 06/30/2024 2:13 PM [facility] MCH 31.6 27.0 - 32.0 pcg LAB HEMETOLOGY METHOD 06/30/2024 2:13 PM [facility] MCHC 33.6 32.0 - 37.0 g/dL LAB HEMETOLOGY METHOD 06/30/2024 2:13 PM [facility] RDW 13.6 11.0 - 15.0 % LAB HEMETOLOGY METHOD 06/30/2024 2:13 PM [facility] Platelets 234 130 - 400 K/mcL LAB HEMETOLOGY METHOD 06/30/2024 2:13 PM [facility] MPV 9.7 7.0 - 11.0 FL LAB HEMETOLOGY METHOD 06/30/2024 2:13 PM [facility] NRBC 0.0 <1.0 % LAB HEMETOLOGY METHOD 06/30/2024 2:13 PM [facility] NRBC Absolute 0.00 <0.10 K/mcL LAB HEMETOLOGY METHOD 06/30/2024 2:13 PM [facility] Neutrophils Relative 57.2 % LAB HEMETOLOGY METHOD 06/30/2024 2:13 PM [facility] Lymphocytes Relative 32.4 % LAB HEMETOLOGY METHOD 06/30/2024 2:13 PM [facility] Monocytes Relative 8.2 % LAB HEMETOLOGY METHOD 06/30/2024 2:13 PM [facility] Eosinophils Relative 1.1 % LAB HEMETOLOGY METHOD 06/30/2024 2:13 PM [facility] Basophils Relative 0.7 % LAB HEMETOLOGY METHOD 06/30/2024 2:13 PM [facility] Immature Granulocytes Relative 0.4 % LAB HEMETOLOGY METHOD 06/30/2024 2:13 PM [facility] Neutrophils Absolute 3.27 1.50 - 7.00 K/mcL LAB HEMETOLOGY METHOD 06/30/2024 2:13 PM [facility] Lymphocytes Absolute 1.85 1.00 - 5.00 K/mcL LAB HEMETOLOGY METHOD 06/30/2024 2:13 PM [facility] Monocytes Absolute 0.47 0.20 - 1.00 K/mcL LAB HEMETOLOGY METHOD 06/30/2024 2:13 PM EST [facility] Eosinophils Absolute 0.06 0.00 - 0.50 K/mcL LAB HEMETOLOGY METHOD 06/30/2024 2:13 PM EST [facility] Basophils Absolute 0.04 0.00 - 0.20 K/mcL LAB HEMETOLOGY METHOD 06/30/2024 2:13 PM EST [facility] Immature Granulocytes Absolute 0.02 0.00 - 0.03 K/mcL LAB HEMETOLOGY METHOD 06/30/2024 2:13 PM EST [facility] Blood Venous blood specimen / Unknown Venipuncture / Unknown 06/30/2024 1:19 PM EST 06/30/2024 1:58 PM EST Terry Montanez MD LAB BLOOD ORDERAB LES [facility] [address] [place] [address], [place] [phone] * B-type natriuretic peptide (06/30/2024 1:19 PM EST) Pathologist [facility] BNP 2 <=100 pcg/mL LAB CHEMISTRY METHOD 06/30/2024 2:39 PM EST [facility] Blood Venous blood specimen / Unknown Venipuncture / Unknown 06/30/2024 1:19 PM EST 06/30/2024 1:57 PM EST Terry Montanez MD LAB BLOOD ORDERAB LES [facility] [address] [place] [address], [place] [phone] * (ABNORMAL) Magnesium (06/30/2024 1:19 PM EST) Magnesium 1.8(L) 1.9 - 2.6 mg/dL LAB CHEMISTRY METHOD 06/30/2024 2:40 PM EST [facility] Blood Venous blood specimen / Unknown Venipuncture / Unknown 06/30/2024 1:19 PM EST 06/30/2024 1:58 PM EST Terry Montanez MD LAB BLOOD ORDERAB LES Performing Organization Address City/[facility]/ZIP Co de Phone Number [facility] [address] [place] [address], [place] [phone] * Lipase (06/30/2024 1:19 PM EST) Pathologist [facility] Lipase 50 13 - 75 unit/L LAB CHEMISTRY METHOD 06/30/2024 2:40 PM EST [facility] Blood Venous blood specimen / Unknown Venipuncture / Unknown 06/30/2024 1:19 PM EST 06/30/2024 1:58 PM EST Terry Montanez MD LAB BLOOD ORDERAB LES Performing Organization Address City/[facility]/ZIP Co de Phone Number [facility] [address] [place] [address], * (ABNORMAL) Comprehensive metabolic panel (06/30/2024 1:19 PM EST) Pathologist [facility] Sodium 138 133 - 145 mmol/L LAB CHEMISTRY METHOD 06/30/2024 2:40 PM EST [facility] Potassium 4.4 3.5 - 5.5 mmol/L LAB CHEMISTRY METHOD 06/30/2024 2:40 PM EST [facility] Chloride 104 96 - 110 mmol/L LAB CHEMISTRY METHOD 06/30/2024 2:40 PM EST [facility] CO2 29 21 - 32 mmol/L LAB CHEMISTRY METHOD 06/30/2024 2:40 PM EST [facility] Anion Gap 5 3 - 11 LAB CHEMISTRY METHOD 06/30/2024 2:40 PM [facility] Glucose 165(H) 70 - 100 mg/dL LAB CHEMISTRY METHOD 06/30/2024 2:40 PM [facility] BUN 18 5 - 25 mg/dL LAB CHEMISTRY METHOD 06/30/2024 2:40 PM [facility] Creatinine 1.39(H) 0.70 - 1.30 mg/dL LAB CHEMISTRY METHOD 06/30/2024 2:40 PM [facility] eGFR 65 >=60 mL/min/1. 73m2 LAB CHEMISTRY METHOD 06/30/2024 2:40 PM [facility] Comment:Calculation based on the??Chronic Kidney Disease Epidemiology Collaboration (CKD-EPI) equation refit??without adjustment for race. BUN/Creatinine Ratio 12.9 LAB CHEMISTRY METHOD 06/30/2024 2:40 PM [facility] Calcium 10.0 8.5 - 10.5 mg/dL LAB CHEMISTRY METHOD 06/30/2024 2:40 PM [facility] AST (SGOT) 91(H) 10 - 42 unit/L LAB CHEMISTRY METHOD 06/30/2024 2:40 PM [facility] ALT (SGPT) 190(H) 10 - 60 unit/L LAB CHEMISTRY METHOD 06/30/2024 2:40 PM [facility] Alkaline Phosphatase 84 42 - 121 unit/L LAB CHEMISTRY METHOD 06/30/2024 2:40 PM [facility] Total Protein 7.5 6.0 - 8.0 g/dL LAB CHEMISTRY METHOD 06/30/2024 2:40 PM [facility] Albumin 4.1 3.2 - 5.0 g/dL LAB CHEMISTRY METHOD 06/30/2024 2:40 PM [facility] Total Bilirubin 0.8 0.0 - 1.4 mg/dL LAB CHEMISTRY METHOD 06/30/2024 2:40 PM [facility] Blood Venous blood specimen / Unknown Venipuncture / Unknown 06/30/2024 1:19 PM EST 06/30/2024 1:58 PM EST Terry Montanez MD LAB BLOOD ORDERAB LES Performing Organization Address [facility] de Phone Number [facility] [address] [place] [address], * Troponin I high sensitivity (06/30/2024 1:19 PM EST) [facility] High Sensitivity Troponin I 5 <=79 ng/L LAB CHEMISTRY METHOD 06/30/2024 2:31 PM EST [facility] Blood Venous blood specimen / Unknown Venipuncture / Unknown 06/30/2024 1:19 PM EST 06/30/2024 1:58 PM EST Narrative [facility] - 06/30/2024 2:31 PM EST High levels of biotin in samples may falsely decrease hsTroponin values. ??Use caution when interpreting hsTroponin results in patients taking biotin who exhibit renal impairment (eGFR <60) or in patients taking more than 20 mg/day of biotin. Terry Montanez MD LAB BLOOD ORDERAB LES Performing Organization Address [facility] de Phone Number [facility] [address] [place] [address], * ECG 12 lead (06/30/2024 1:17 PM EST) [facility] Ventricular Rate ECG 103 BPM GEMUSE Atrial Rate 103 BPM GEMUSE P-R Interval 152 ms GEMUSE QRS Duration 88 ms GEMUSE Q-T Interval 358 ms GEMUSE QTc 468 ms GEMUSE P Wave [place] 40 degrees GEMUSE R [place] 9 degrees GEMUSE T [place] 41 degrees GEMUSE ECG Interpretation Sinus tachycardia Minimal voltage criteria for LVH, may be normal variant Borderline ECG When compared with ECG of 29-MAY-2024 22:35, No significant change was found Confirmed by Mango FERGUSON JOHN ([id number]) on 06/30/2024 10:24:25 PM GEMUSE 06/30/2024 1:17 PM EST 06/30/2024 10:24 PM EST Terry Montanez MD ECG ORDERABLES GEMUSE documented in this encounter Visit Diagnoses Diagnosis Acute cough- Primary Mild asthma without complication, unspecified whether persistent documented in this encounter Administered Medications Inactive Administered Medications - up to 3 most recent administrations Medication Order MAR Action Action Date Dose Rate Site acetaminophen (TYLENOL) tablet 1,000 mg 1,000 mg, oral, Once, On Sun07/01/24 at 0721, For 1 dose Given 07/01/2024 7:33 AM EST 1,000 mg benzonatate (TESSALON) capsule 100 mg 100 mg, oral, Once, On Sun07/01/24 at 0721, For 1 dose, Do not crush or chew. Given 07/01/2024 7:33 AM EST 100 mg ipratropium-albuteroL (DUONEB) 0.5-2.5 mg/3 mL nebulizer solution 3 mL 3 mL, nebulization, Once, On Sun07/01/24 at 0729, For 1 dose Given 07/01/2024 7:35 AM EST 3 mL documented in this encounter Active and Recently Administered Medications Times are shown in EST. Scheduled Medication Order 06/29/2024 06/30/2024 07/01/2024 acetaminophen (TYLENOL) tablet 1,000 mg (COMPLETED) 1,000 mg, oral, Once, On Sun07/01/24 at 0721, For 1 dose 0733 (Given - Provid er: Elizabeth Odonnell RN) benzonatate (TESSALON) capsule 100 mg (COMPLETED) 100 mg, oral, Once, On Sun07/01/24 at 0721, For 1 dose, Do not crush or chew. 0733 (Given - Provid er: Elizabeth Odonnell RN) ipratropium-albuteroL (DUONEB) 0.5-2.5 mg/3 mL nebulizer solution 3 mL (COMPLETED) 3 mL, nebulization, Once, On Sun07/01/24 at 0729, For 1 dose 0735 (Given - Provid er: Elizabeth Odonnell RN) documented in this encounter Care Teams Medical Radiation Tech Relationship Specialty Start Date End Date Elieser Moreno MD [address] [place] [address] Dr [address] JUANA Bunch PCP - General Internal Medicine 05/13/24 documented as of this encounter
== END 2024-07-18 15:00 | disposition home or self-care (01) ==
PROVIDERS: PCP Internal Medicine; Visit Provider Internal Medicine
DX: E11.69 Type 2 diabetes mellitus with other specified complication (principal); M1A.9XX0 Chronic gout, unspecified, without tophus (tophi); E66.9 Obesity, unspecified; Z68.33 Body mass index [BMI] 33.0-33.9, adult; E78.2 Mixed hyperlipidemia; J45.20 Mild intermittent asthma, uncomplicated

== ENCOUNTER → 2024-07-18 13:11 | Outpatient (BNVA) | payer MEDICARE, MEDICAID, SELFPAY | PROVIDERS: PCP Internal Medicine; Visit Provider Internal Medicine | DX: M1A.9XX0 Chronic gout, unspecified, without tophus (tophi) (principal); E11.9 Type 2 diabetes mellitus without complications; E78.2 Mixed hyperlipidemia; J45.20 Mild intermittent asthma, uncomplicated; E66.9 Obesity, unspecified; Z68.33 Body mass index [BMI] 33.0-33.9, adult; Z71.3 Dietary counseling and surveillance | CPT/HCPCS: 96127; 99212 ==

== ENCOUNTER 2024-08-13 10:55 | Outpatient (AMB) | payer MEDICARE, MEDICAID, SELFPAY ==
--- NOTE | 2024-08-13 10:59 | A.OFFVIS_ITS ---
Vital Signs 08/13/24 11:02 Height 6 ft 1.5 in Weight 246 lb 14.684 oz BMI 32.1 BP 111/78 Blood Pressure Location Lt brachial Position Sitting Pulse 118 H Intake Visit Reasons: [place] patient follow up r.s from 06/04 Intake Note: Adam presents in the office as a [place] patient that is establishing new care. CC: He states that sometimes he has pains in the right upper quadrant. He is not sure if he is laying down to soon after eating. He is partially blind. Skills Instructor Required: No Allergies No Known Allergies Allergy (Verified 08/13/24 11:02) HPI Comments Details: 43 y.o M legally blind, prev established with [facility] [place] for fatty liver. Here for routine follow up. Reports occ R sided pain shelly on laying down. Otherwise no N/V/D. Has lost almost 30 lbs INTENTIONALLY over the last year to help with metabolic syndrome. DM well controlled on metformin, reports in office A1c of 6 last month. No recent labs available x 6 months. Elastography 2023: 1. There is generalized increase in hepatic echotexture, consistent with fatty infiltration or hepatocellular disease. Please correlate clinically. No focal hepatic mass or intrahepatic biliary dilatation is seen. 2. Liver elastography: In the absence of other known clinical signs, measurements rule out compensated advanced chronic liver disease. If there are known clinical signs, further testing may be needed for confirmation. 3. The right kidney shows a malrotated, horseshoe configuration. This would be better demonstrated with cross-sectional imaging, if clinically relevant. 4. Technically limited ultrasound examination of the pancreas. FORMERLY [facility], [facility] Medical History Lumbar degenerative disc disease Essential hypertension Gout Learning disability Retinal dystrophy Vitamin D deficiency Impaired fasting glucose Obesity (BMI 30-39.9) Depression History of gout Chronic idiopathic constipation Asthma Benign essential hypertension Chronic constipation MORENO (nonalcoholic steatohepatitis) Rectal bleeding Surgical History H/O removal of testicle History of shoulder surgery Family History Mother Hypertension Father No problems noted. Other Mental health problem Social History Household Members Other:: Sister Housing: House Alcohol intake: former Patient Tobacco Use Status: Never used Tobacco e-Cigarette/Vaping Use: Never Used Second Hand Smoke Exposure: No service: No Current occupational status: disabled Cognitive needs: No Hearing needs: No Vision needs: Yes Review of Systems Const All systems reviewed & are unremarkable except as noted in HPI and below Physical Exam Vital Signs: Last Vital Signs Pulse 118 H 08/13/24 11:02 BP 111/78 08/13/24 11:02 BMI result Body Mass Index 32.1 No apparent distress Nonicteric Abdomen soft, nondistended Alert and oriented x3, normal gait Assessment & Plan Assessment & Plan (1) Elevated LFTs: Code(s): R79.89 - Other specified abnormal findings of blood chemistry Category: Medical (2) Impaired fasting glucose: Code(s): R73.01 - Impaired fasting glucose Category: Medical (3) MORENO (nonalcoholic steatohepatitis): Code(s): K75.81 - Nonalcoholic steatohepatitis (MORENO) Category: Medical (4) Obesity: Code(s): E66.9 - Obesity, unspecified Category: Medical (5) Hyperlipidemia: Code(s): E78.5 - Hyperlipidemia, unspecified Category: Medical Plan Has had extensive w/up done previously to establish MAFLD/MORENO - will check iron studies for completion. Otherwise, pt encouraged to cont good lifestyle modifications. Not on a statin despite being diabetic with high cholesterol in 2023 - pt reports 30 lbs weight loss since then so will recheck lipid profile but hes aware may need to be started on it depending on results. Plan: - Labs as below to get updated Fib 4 - Lipid profile - Follow up 6 months Orders: Orders Complete Blood Count no Diff Today K75.81 - Nonalcoholic steatohepatitis (MORENO), R79.89 - Other specified abnormal findings of blood chemistry Comprehensive Met. Panel Today K75.81 - Nonalcoholic steatohepatitis (MORENO), R79.89 - Other specified abnormal findings of blood chemistry Prothrombin Time INR Today K75.81 - Nonalcoholic steatohepatitis (MORENO), R79.89 - Other specified abnormal findings of blood chemistry Ferritin Today K75.81 - Nonalcoholic steatohepatitis (MORENO), R79.89 - Other specified abnormal findings of blood chemistry HIV Ab/Ag Today K75.81 - Nonalcoholic steatohepatitis (MORENO), R79.89 - Other specified abnormal findings of blood chemistry IRON PROFILE Today K75.81 - Nonalcoholic steatohepatitis (MORENO), R79.89 - Other specified abnormal findings of blood chemistry Lipid Panel Today K75.81 - Nonalcoholic steatohepatitis (MORENO), R79.89 - Other specified abnormal findings of blood chemistry Coding Level of Care Code Est Pt Level 4 (71585) Diagnoses Elevated LFTs R79.89 Impaired fasting glucose R73.01 MORENO (nonalcoholic steatohepatitis) K75.81 Obesity E66.9 Hyperlipidemia E78.5
[2024-08-13 11:02] VITALS: BP 111/78; PULSE 118; BMI 32.1
--- OUTSIDE RECORDS SUMMARY | 2024-08-13 13:40 | XMS_ITS | Clinical Summary ---
Author Organization [facility] Address [address] [place] [address] Phone Care Team Providers Care Solar Consultant Name Role Phone Elieser Moreno MD Primary Care Provider Allergies No known active allergies Medications allopurinoL (ZYLOPRIM) 300 mg tablet Take 1 tablet (300 mg total) by mouth 1 (one) time each day. 4 Active FLUoxetine (PROzac) 40 mg capsule Take 1 capsule (40 mg total) by mouth 1 (one) time each day. 4 Active hydrOXYzine HCL (ATARAX) 25 mg tablet Take 1 tablet (25 mg total) by mouth 2 (two) times a day if needed. 4 Active lisinopriL (PRINIVIL,ZESTR IL) 20 mg tablet Take 1 tablet (20 mg total) by mouth 1 (one) time each day. 4 Active QUEtiapine (SEROquel) 100 mg tablet Take 1 tablet (100 mg total) by mouth. at bedtime 4 Active amantadine (SYMMETREL) 100 mg capsule Take 1 capsule (100 mg total) by mouth 1 (one) time each day. Active metFORMIN (GLUCOPHAGE) 500 mg tablet Take 1 tablet (500 mg total) by mouth 2 (two) times a day with meals for 20 days. 40 tablet 4 Active albuterol HFA (PROAIR HFA ; PROVENTIL HFA ; VENTOLIN HFA) 90 mcg/actuation inhaler Inhale 2 puffs by mouth every 6 (six) hours if needed for wheezing. 1 each 5 Active benzonatate (TESSALON) 100 mg capsule Take 1 capsule (100 mg total) by mouth 3 (three) times a day if needed for cough. Do not crush or chew. 12 capsule 5 Active indomethacin (INDOCIN) 25 mg capsule Take 2 capsules (50 mg total) by mouth 3 (three) times a day for 2 days, THEN 1 capsule (25 mg total) 3 (three) times a day if needed for mild pain or moderate pain for up to 3 days. 21 capsule 5 07/19/19 25 Active Problems No known active problems Encounters Date Type Department Care Team Description 07/14/2024 10:43 PM EST - 07/15/2024 12:15 AM [facility] Emergency [address] [place] [phone] Acute gout of right foot, unspecified cause (Primary Dx) Discharge Disposition: Home or Self Care 07/01/2024 5:38 AM EST - 07/01/2024 8:29 AM [facility] Emergency [address] [place] [phone] Anant Church DO Acute cough (Primary Dx); Mild asthma without complication, unspecified whether persistent Discharge Disposition: Home or Self Care 05/30/2024 7:54 AM EST - 05/30/2024 10:16 AM [facility] Emergency [address] [place] [phone] Stephanie Mckeon DO Hyperglycemia (Primary Dx); Dizziness Discharge Disposition: Home or Self Care 05/13/2024 3:35 PM EST - 05/13/2024 8:09 PM [facility] Emergency [address] [place] [phone] Chronic left hip pain (Primary Dx) Discharge Disposition: Home or Self Care from Last 3 Months Medical History Medical History Date Comments Hypertension Gout Depression Asthma Social History Tobacco Use Types Packs/Day Years Used Date Smoking Tobacco: Never Smokeless Tobacco: Never Tobacco Cessation:Counseling Given: Not Answered Sex and Gender Information Value Date Recorded Sex Assigned at Male 07/01/2024 8:00 AM EST Legal Sex Male 3:43 PM EDT Gender Identity Male 07/01/2024 8:00 AM EST Sexual Orientation Straight 07/01/2024 8: 00 AM EST Obstetrics History Last Filed Vital Signs Vital [...] patient's age to complete this topic Meningococcal B Vacine Aged Out No lo nger eligible based on patient's age to complete [...] of3 resultswithin the time period is included. [facility] Signature WBC 8.0 4.8 - 10.8 K/[facility] LAB HEMETOLOGY METHOD 07/14/2024 7:06 PM EST [facility] RBC 4.70 4.50 - 5.50 M/[facility] LAB HEMETOLOGY METHOD 07/14/2024 7:06 PM [facility] Hemoglobin 14.5 13.5 - 17.5 g/dL LAB HEMETOLOGY METHOD 07/14/2024 7:06 PM [facility] Hematocrit 42.8 42.0 - 54.0 % LAB HEMETOLOGY METHOD 07/14/2024 7:06 PM [facility] MCV 91.5 79.0 - 98.0 FL LAB HEMETOLOGY METHOD 07/14/2024 7:06 PM [facility] MCH 31.0 27.0 - 32.0 pcg LAB HEMETOLOGY METHOD 07/14/2024 7:06 PM [facility] MCHC 33.9 32.0 - 37.0 g/dL LAB HEMETOLOGY METHOD 07/14/2024 7:06 PM [facility] RDW 13.4 11.0 - 15.0 % LAB HEMETOLOGY METHOD 07/14/2024 7:06 PM [facility] Platelets 230 130 - 400 K/mcL LAB HEMETOLOGY METHOD 07/14/2024 7:06 PM [facility] MPV 9.8 7.0 - 11.0 FL LAB HEMETOLOGY METHOD 07/14/2024 7:06 PM [facility] NRBC 0.0 <1.0 % LAB HEMETOLOGY METHOD 07/14/2024 7:06 PM [facility] NRBC Absolute 0.00 <0.10 K/mcL LAB HEMETOLOGY METHOD 07/14/2024 7:06 PM [facility] Neutrophils Relative 60.4 % LAB HEMETOLOGY METHOD 07/14/2024 7:06 PM [facility] Lymphocytes Relative 28.7 % LAB HEMETOLOGY METHOD 07/14/2024 7:06 PM [facility] Monocytes Relative 8.8 % LAB HEMETOLOGY METHOD 07/14/2024 7:06 PM [facility] Eosinophils Relative 1.1 % LAB HEMETOLOGY METHOD 07/14/2024 7:06 PM [facility] Basophils Relative 0.4 % LAB HEMETOLOGY METHOD 07/14/2024 7:06 PM [facility] Immature Granulocytes Relative 0.6 % LAB HEMETOLOGY METHOD 07/14/2024 7:06 PM [facility] Neutrophils Absolute 4.85 1.50 - 7.00 K/mcL LAB HEMETOLOGY METHOD 07/14/2024 7:06 PM [facility] Lymphocytes Absolute 2.31 1.00 - 5.00 K/mcL LAB HEMETOLOGY METHOD 07/14/2024 7:06 PM [facility] Monocytes Absolute 0.71 0.20 - 1.00 K/mcL LAB HEMETOLOGY METHOD 07/14/2024 7:06 PM [facility] Eosinophils Absolute 0.09 0.00 - 0.50 K/mcL LAB HEMETOLOGY METHOD 07/14/2024 7:06 PM [facility] Basophils Absolute 0.03 0.00 - 0.20 K/mcL LAB HEMETOLOGY METHOD 07/14/2024 7:06 PM [facility] Immature Granulocytes Absolute 0.05(H) 0.00 - 0.03 K/mcL LAB HEMETOLOGY METHOD 07/14/2024 7:06 PM [facility] Blood Venous blood specimen / Unknown Venipuncture / Unknown 07/14/2024 6:36 PM EST 07/14/2024 6:58 PM EST us Brian Aaron Anguiano MD LAB BLOOD ORDERABLES Final Resu lt [facility] [address] [place] [address], * Uric acid (07/14/2024 6:36 PM EST) Pathologist [facility] Uric Acid 8.7 3.7 - 9.2 mg/dL LAB CHEMISTRY METHOD 07/14/2024 7:25 PM [facility] Blood Venous blood specimen / Unknown Venipuncture / Unknown 07/14/2024 6:36 PM EST 07/14/2024 6:58 PM EST us Brian B Silvio FONSECA LAB BLOOD ORDERABLES Final Resu lt [facility] [address] [place] [address], [place] [phone] * (ABNORMAL) Basic metabolic panel (07/14/2024 6:36 PM EST) Only the most recent of2 resultswithin the time period is included. [facility] Sodium 140 133 - 145 mmol/L LAB CHEMISTRY METHOD 07/14/2024 7:25 PM [facility] Potassium 3.7 3.5 - 5.5 mmol/L LAB CHEMISTRY METHOD 07/14/2024 7:25 PM [facility] Chloride 104 96 - 110 mmol/L LAB CHEMISTRY METHOD 07/14/2024 7:25 PM [facility] CO2 29 21 - 32 mmol/L LAB CHEMISTRY METHOD 07/14/2024 7:25 PM [facility] Anion Gap 7 3 - 11 LAB CHEMISTRY METHOD 07/14/2024 7:25 PM [facility] Glucose 131(H) 70 - 100 mg/dL LAB CHEMISTRY METHOD 07/14/2024 7:25 PM [facility] BUN 16 5 - 25 mg/dL LAB CHEMISTRY METHOD 07/14/2024 7:25 PM [facility] Creatinine 0.89 0.70 - 1.30 mg/dL LAB CHEMISTRY METHOD 07/14/2024 7:25 PM EST [facility] eGFR 110 >=60 mL/min/1. 73m2 LAB CHEMISTRY METHOD 07/14/2024 7:25 PM EST [facility] Comment:Calculation based on the??Chronic Kidney Disease Epidemiology Collaboration (CKD-EPI) equation refit??without adjustment for race. BUN/Creatinine Ratio 18.0 LAB CHEMISTRY METHOD 07/14/2024 7:25 PM EST [facility] Calcium 9.7 8.5 - 10.5 mg/dL LAB CHEMISTRY METHOD 07/14/2024 7:25 PM EST [facility] Blood Venous blood specimen / Unknown Venipuncture / Unknown 07/14/2024 6:36 PM EST 07/14/2024 6:58 PM EST Brian B Silvio FONSECA LAB BLOOD ORDERABLES Final Resu lt [facility] [address] [place] [address], [place] [phone] * XR Foot 3+ Views Right (07/14/2024 6:25 PM EST) Anatomical Region Laterality Modality Lower Extremities, Foot Right Radiogra phic Imaging 07/15/2024 8:16 AM EST Impressions 07/15/2024 8:17 AM EST Impression: 1. No acute osseous abnormality identified. 2. 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 Telerad JOLENE ([id number]) -------- FINAL REPORT -------- Dictated By: Zayda Baker Dictated Date: 07/15/2024 08:16 ET Assigned Physician: Zayda Baker Reviewed and Electronically Signed By: Zayda Baker Signed Date: 07/15/2024 08:17 ET Workstation ID: [id number] Transcribed By: Self Edit Transcribed Date: 07/15/2024 [...] great toe and tibiotalar joint. Telerad JOLENE ([id number]) -------- FINAL REPORT -------- Dictated By: Zayda Baker Dictated Date: 07/15/2024 08:16 ET Assigned Physician: Zayda Baker Reviewed and Electronically Signed By: Zayda Baker Signed Date: 07/15/2024 08:17 ET Workstation ID: [id number] Transcribed By: Self Edit Transcribed Date: 07/15/2024 08:16 ET us Brian B Silvio FONSECA IMG XR PROCEDURES Final Result * ECG-Annotated (07/01/2024) Only the most recent of3 resultswithin the time period is included. us Provider Onbase ECG ORDERABLES Final Result * XR Chest 2 Views (06/30/2024 9:36 PM EST) Anatomical Region Laterality Modality Body Radiographic Sanaz ging 07/01/2024 8:33 AM EST Impressions 07/01/2024 8:33 AM EST Hypoventilatory exam. ??No acute findings. -------- FINAL REPORT -------- Dictated By: Loi Spencer Dictated Date: 07/01/2024 08:33 ET Assigned Physician: Loi Spencer Reviewed and Electronically Signed By: Loi Spencer Signed Date: 07/01/2024 08:33 ET Workstation ID: [id number] Transcribed By: Self Edit Transcribed Date: 07/01/2024 [...] Signed Date: 07/01/2024 08:33 ET Workstation ID: [id number] Transcribed By: Self Edit Transcribed Date: 07/01/2024 08:33 ET us Terry Montanez MD IMG XR PROCEDURES Final R esult * (ABNORMAL) POCT Glucose, blood (06/30/2024 6:32 PM EST) Only the most recent of2 resultswithin the time period is included. Glucose POCT 126(H) 70 - 100 mg/dL 06/30/2024 6:33 PM EST [facility] Blood Capillary blood specimen / Unknown 06/30/2024 6:32 PM EST 06/30/2024 6:35 PM EST Generic Provider Poct LAB POINT OF CARE TEST DOCKED DEVICE UNSOLICITED RESULTS Final Result Performing Organization Address [facility]/ZIP Co de Phone Number [facility] [address] [place] [address], * Troponin I high sensitivity (06/30/2024 3:15 PM EST) Only the most recent of2 resultswithin the time period is included. [facility] High Sensitivity Troponin I 5 <=79 ng/L LAB CHEMISTRY METHOD 06/30/2024 4:31 PM EST [facility] Blood Venous blood specimen / Unknown Venipuncture / Unknown 06/30/2024 3:15 PM EST 06/30/2024 3:54 PM EST Narrative [facility] - 06/30/2024 4:31 PM EST High levels of biotin in samples may falsely decrease hsTroponin values. ??Use caution when interpreting hsTroponin results in patients taking biotin who exhibit renal impairment (eGFR <60) or in patients taking more than 20 mg/day of biotin. Terry Montanez MD LAB BLOOD ORDERABLES Aide l Result Performing Organization Address City/[facility]/ZIP Co de Phone Number [facility] [address] [place] [address], * ECG 12 lead (06/30/2024 3:13 PM EST) Only the most recent of3 resultswithin the time period is included. [facility] Ventricular Rate ECG 102 BPM GEMUSE Atrial Rate 102 BPM GEMUSE P-R Interval 152 ms GEMUSE QRS Duration 86 ms GEMUSE Q-T Interval 366 ms GEMUSE QTc 477 ms GEMUSE P Wave [place] 40 degrees GEMUSE R [place] 6 degrees GEMUSE T [place] 25 degrees GEMUSE ECG Interpretation Sinus tachycardia Minimal voltage criteria for LVH, may be normal variant Borderline ECG When compared with ECG of 30-JUN-2024 13:17, (unconfirmed) No significant change was found Confirmed by Mango FERGUSON JOHN ([id number]) on 06/30/2024 10:27:16 PM GEMUSE 06/30/2024 3:13 PM EST 06/30/2024 10:27 PM EST Terry Montanez MD ECG ORDERABLES Final Res ult GEMUSE * B-type natriuretic peptide (06/30/2024 1:19 PM EST) BNP 2 <=100 pcg/mL LAB CHEMISTRY METHOD 06/30/2024 2:39 PM EST [facility] Blood Venous blood specimen / Unknown Venipuncture / Unknown 06/30/2024 1:19 PM EST 06/30/2024 1:57 PM EST Terry Montanez MD LAB BLOOD ORDERABLES Aide l Result Performing Organization Address City/[facility]/ZIP Co de Phone Number [facility] [address] [place] [address], [place] [phone] * (ABNORMAL) Magnesium (06/30/2024 1:19 PM EST) Only the most recent of2 resultswithin the time period is included. Magnesium 1.8(L) 1.9 - 2.6 mg/dL LAB CHEMISTRY METHOD 06/30/2024 2:40 PM EST [facility] Blood Venous blood specimen / Unknown Venipuncture / Unknown 06/30/2024 1:19 PM EST 06/30/2024 1:58 PM EST Terry Montanez MD LAB BLOOD ORDERABLES Aide l Result Performing Organization Address City/[facility]/ZIP Co de Phone Number [facility] [address] [place] [address], [place] [phone] * Lipase (06/30/2024 1:19 PM EST) Pathologist [facility] Lipase 50 13 - 75 unit/L LAB CHEMISTRY METHOD 06/30/2024 2:40 PM [facility] Blood Venous blood specimen / Unknown Venipuncture / Unknown 06/30/2024 1:19 PM EST 06/30/2024 1:58 PM EST Terry Montanez MD LAB BLOOD ORDERABLES Aide l Result Performing Organization Address [facility]/ZIP Co de Phone Number [facility] [address] [place] [address], [place] [phone] * (ABNORMAL) Comprehensive metabolic panel (06/30/2024 1:19 PM EST) [facility] Sodium 138 133 - 145 mmol/L LAB CHEMISTRY METHOD 06/30/2024 2:40 PM [facility] Potassium 4.4 3.5 - 5.5 mmol/L LAB CHEMISTRY METHOD 06/30/2024 2:40 PM [facility] Chloride 104 96 - 110 mmol/L LAB CHEMISTRY METHOD 06/30/2024 2:40 PM [facility] CO2 29 21 - 32 mmol/L LAB CHEMISTRY METHOD 06/30/2024 2:40 PM [facility] Anion Gap 5 3 - 11 LAB CHEMISTRY METHOD 06/30/2024 2:40 PM [facility] Glucose 165(H) 70 - 100 mg/dL LAB CHEMISTRY METHOD 06/30/2024 2:40 PM [facility] BUN 18 5 - 25 mg/dL LAB CHEMISTRY METHOD 06/30/2024 2:40 PM [facility] Creatinine 1.39(H) 0.70 - 1.30 mg/dL LAB CHEMISTRY METHOD 06/30/2024 2:40 PM [facility] eGFR 65 >=60 mL/min/1. 73m2 LAB CHEMISTRY METHOD 06/30/2024 2:40 PM [facility] Comment:Calculation based on the??Chronic Kidney Disease Epidemiology Collaboration (CKD-EPI) equation refit??without adjustment for race. BUN/Creatinine Ratio 12.9 LAB CHEMISTRY METHOD 06/30/2024 2:40 PM [facility] Calcium 10.0 8.5 - 10.5 mg/dL LAB CHEMISTRY METHOD 06/30/2024 2:40 PM [facility] AST (SGOT) 91(H) 10 - 42 unit/L LAB CHEMISTRY METHOD 06/30/2024 2:40 PM [facility] ALT (SGPT) 190(H) 10 - 60 unit/L LAB CHEMISTRY METHOD 06/30/2024 2:40 PM [facility] Alkaline Phosphatase 84 42 - 121 unit/L LAB CHEMISTRY METHOD 06/30/2024 2:40 PM [facility] Total Protein 7.5 6.0 - 8.0 g/dL LAB CHEMISTRY METHOD 06/30/2024 2:40 PM [facility] Albumin 4.1 3.2 - 5.0 g/dL LAB CHEMISTRY METHOD 06/30/2024 2:40 PM [facility] Total Bilirubin 0.8 0.0 - 1.4 mg/dL LAB CHEMISTRY METHOD 06/30/2024 2:40 PM [facility] Blood Venous blood specimen / Unknown Venipuncture / Unknown 06/30/2024 1:19 PM EST 06/30/2024 1:58 PM EST Terry Montanez MD LAB BLOOD ORDERABLES Aide l Result [facility] [address] [place] [address], * ECG-Outside (05/30/2024) us Provider Onbase MD ECG ORDERABLES Final Result * XR Knee 4+ Views Left (05/13/2024 4:39 PM EST) Anatomical Region Laterality Modality Lower Extremities, Knee Left [facility] 05/13/2024 4:52 PM EST Impressions 05/13/2024 4:57 PM EST No acute fracture or subluxation. Chronic abnormality of the femoral head on both sides could reflect sequelae from developmental dysplasia or old Otfz-Ciglg-Geahsgv disease. -------- FINAL REPORT -------- Dictated By: Trev Hamm Dictated Date: 05/13/2024 16:52 ET Assigned Physician: Trev Hamm Reviewed and Electronically Signed By: Trev Hamm Signed Date: 05/13/2024 16:57 ET Workstation ID: [id number] Transcribed By: Self Edit Transcribed Date: 05/13/2024 [...] could reflect sequelae from developmental dysplasia or flmGeqd-Vowtt-Bwhqkxj disease. -------- FINAL REPORT -------- Dictated By: Trev Hamm Dictated Date: 05/13/2024 16:52 ET Assigned Physician: Trev Hamm Reviewed and Electronically Signed By: Trev Hamm Signed Date: 05/13/2024 16:57 ET Workstation ID: [id number] Transcribed By: Self Edit Transcribed Date: 05/13/2024 16:52 ET Joaquim FERNÁNDEZ IMG XR PROCEDURES Final Resul t * XR Hip 2-3 Views Left (05/13/2024 4:39 PM EST) Anatomical Region Laterality Modality Lower Extremities, Hip Left Radiograp hic Imaging 05/13/2024 4:52 PM EST Impressions 05/13/2024 4:57 PM EST No acute fracture or subluxation. Chronic abnormality of the femoral head on both sides could reflect sequelae from developmental dysplasia or old Ihbi-Xwdgm-Cuyehqe disease. -------- FINAL REPORT -------- Dictated By: Trev Hamm Dictated Date: 05/13/2024 16:52 ET Assigned Physician: Trev Hamm Reviewed and Electronically Signed By: Trev Hamm Signed Date: 05/13/2024 16:57 ET Workstation ID: [id number] Transcribed By: Self Edit Transcribed Date: 05/13/2024 [...] could reflect sequelae from developmental dysplasia or rjtJtmf-Qatww-Yloziwu disease. -------- FINAL REPORT -------- Dictated By: Trev Hamm Dictated Date: 05/13/2024 16:52 ET Assigned Physician: Trev Hamm Reviewed and Electronically Signed By: Trev Hamm Signed Date: 05/13/2024 16:57 ET Workstation ID: [id number] Transcribed By: Self Edit Transcribed Date: 05/13/2024 16:52 ET Joaqumi FERNÁNDEZ IMG XR PROCEDURES Final Resul t from Last 3 Months Insurance [place] Care Teams Solar Consultant Relationship Specialty Start Date End Date Elieser Moreno MD [address] [place] [address] [address] JUANA Bunch PCP - General Internal Medicine 05/13/24
--- OUTSIDE RECORDS SUMMARY | 2024-08-13 13:40 | XMS_ITS | Encounter Summary ---
Author Organization [facility] Address [address] [place] [address] Care Team Providers Care Work Station Support Specialist Name Role Phone Elieser Moreno MD Primary Care Provider [phone] Reason for Visit * Reason Comments Foot Pain Encounter Details Date Type Department Care Team (Late st Contact Info) Description 07/14/2024 10:43 PM EST - 07/15/2024 12:15 AM EST Emergency [facility] Emergency [address] [place] [id number] Acute gout of right foot, unspecified cause [...] Orientation Straight 07/01/2024 8: 00 AM EST documented as of this encounter Last Filed [...] EST documented in this encounter Functional Status * Are you deaf or do you have serious difficulty hearing? Answer Date of Assessment Author No 07/01/2024 6:13 AM Bonny Navarrete RN * Are you blind or do you have serious difficulty seeing, even when wearing glasses? Answer Date of Assessment Author No 07/01/2024 6:13 AM MIGUEL Nichole, Bonny Sharif RN * Do you have serious difficulty walking or climbing stairs? Answer Date of Assessment Author No 07/01/2024 6:13 AM MIGUEL Nichole, As mirela Sharif RN * Do you have serious difficulty dressing or bathing? Answer Date of Assessment Author No 07/01/2024 6:13 AM MIGUEL Nichole, Bonny Sharif RN * Because of a physical, mental, or emotional condition, do you have serious difficulty doing errandsalone such as visiting the doctor? Answer Date of Assessment Author No 07/01/2024 6:13 AM Bonny Navarrete RN documented as of this encounter Mental Status * Because of a physical, mental, or emotional condition, do you have serious difficulty concentrating, remembering, or making decisions? (5 years old or older) Answer Entry Date Author No 07/01/2024 6:13 AM Bonny Navarrete RN documented in this encounter Discharge Instructions * Discharge Instructions* [...] this encounter Medications at Time of Discharge albuterol HFA (PROAIR HFA ; PROVENTIL HFA [...] times a day if needed. 04/23/2024 lisinopriL (PRINIVIL,ZESTRI L) 20 mg tablet Take 1 tablet (20 mg total) by mouth 1 (one) time each day. 02/13/2024 QUEtiapine (SEROquel) 100 mg tablet Take 1 tablet (100 mg total) by mouth. at bedtime 03/25/2024 indomethacin (INDOCIN) 25 mg capsule Take 2 capsules (50 mg total) by mouth 3 (three) times a day for 2 days, THEN 1 capsule (25 mg total) 3 (three) times a day if needed for mild pain or moderate pain for up to 3 days. 21 capsule 07/14/2024 07/19/2024 documented as of this encounter Ordered Prescriptions Prescription Sig Dispense Quantity Refills Last Filled Start Date End Date indomethacin (INDOCIN) 25 mg capsule Take 2 capsules (50 mg total) by mouth 3 (three) times a day for 2 days, THEN 1 capsule (25 mg total) 3 (three) times a day if needed for mild pain or moderate pain for up to 3 days. 21 capsule 07/14/2024 5 indomethacin (INDOCIN) 25 mg capsule Take 2 capsules (50 mg total) by mouth 3 (three) times a day for 2 days, THEN 1 capsule (25 mg total) 3 (three) times a day if needed for mild pain or moderate pain for up to 3 days. 21 capsule 07/14/2024 5 documented in this encounter Discharge Disposition Disposition [...] Anguiano MD - 07/14/2024 5:26 PM EST [facility] Emergency Department Encounter Note Patient Name: Adam [...] Triage Vitals Temp Heart Rate Resp BP 07/14/24175207/14/24175207/14/24175207/14/241752 36.5 ??C (97.7 ??F) 94 18 (!) 146/108 SpO2 Temp Source Heart Rate Source Patient Position 07/14/24175207/14/24175207/14/24 2216 07/14/241752 94 % Oral Monitor Sitting BP Location FiO2 (%) 07/14/241752 -- Right arm;Upper GENERAL: Non-toxic appearing, no acute distress. SKIN: Noonday, warm, dry. HEENT: Normocephalic, atraumatic. EOMI. NECK: [...] Procedure Abnormality Status --------- ------ CBC auto differential[[id number]] Abnormal Final result Please view results for [...] answered, plan for discharge with outpatient follow-up. Object Matrixation software was utilized for documentation and may [...] MD Electronically signed by JOLENE Taylor PA 07/14/24 232 Brian Anguiano MD 07/18/24 0044 documented in this encounter Plan of Treatment [...] CBC auto differential (07/14/2024 6:36 PM EST) WBC 8.0 4.8 - 10.8 K/mcL LAB [...] LAB HEMETOLOGY METHOD 07/14/2024 7:06 PM EST [facility] Monocytes Absolute 0.71 0.20 - 1.00 K/[facility] LAB HEMETOLOGY METHOD 07/14/2024 7:06 PM EST [facility] Eosinophils Absolute 0.09 0.00 - 0.50 K/[facility] LAB HEMETOLOGY METHOD 07/14/2024 7:06 PM EST [facility] Basophils Absolute 0.03 0.00 - 0.20 K/[facility] LAB HEMETOLOGY METHOD 07/14/2024 7:06 PM EST [facility] Immature Granulocytes Absolute 0.05(H) 0.00 - 0.03 K/[facility] LAB HEMETOLOGY METHOD 07/14/2024 7:06 PM EST [facility] Blood Venous blood specimen / Unknown Venipuncture / Unknown 07/14/2024 6:36 PM EST 07/14/2024 6:58 PM EST Brian Aaron Anguiano MD LAB BLOOD ORDERABLES Final Resu lt Performing Organization Address City/[facility]/ZIP Co de Phone Number [facility] [address] [place] [address], [place] [phone] * Uric acid (07/14/2024 6:36 PM EST) Uric Acid 8.7 3.7 - 9.2 mg/dL LAB CHEMISTRY METHOD 07/14/2024 7:25 PM EST [facility] Blood Venous blood specimen / Unknown Venipuncture / Unknown 07/14/2024 6:36 PM EST 07/14/2024 6:58 PM EST us Brianhair Anguiano MD LAB BLOOD ORDERABLES Final Resu lt [facility] [address] [place] [address], [place] [phone] * (ABNORMAL) Basic metabolic panel (07/14/2024 6:36 PM EST) Sodium 140 133 - 145 mmol/L LAB CHEMISTRY METHOD 07/14/2024 7:25 PM [facility] Potassium 3.7 3.5 - 5.5 mmol/L LAB CHEMISTRY METHOD 07/14/2024 7:25 PM [facility] Chloride 104 96 - 110 mmol/L LAB CHEMISTRY METHOD 07/14/2024 7:25 PM [facility] CO2 29 21 - [...] EST Brian Anguiano MD LAB BLOOD ORDERABLES Final Resu lt [facility] [address] [place] [address], * XR Foot 3+ Views Right (07/14/2024 6:25 PM EST) Anatomical Region Laterality Modality Lower Extremities, Foot Right Radiogra phic Imaging 07/15/2024 8:16 AM EST Impressions 07/15/2024 8:17 AM EST Impression: 1. No acute osseous abnormality identified. 2. 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 Telerad JOLENE ([id number]) -------- FINAL REPORT -------- Dictated By: Zayda Baker Dictated Date: 07/15/2024 08:16 ET Assigned Physician: Zayad Baker Reviewed and Electronically Signed By: Zayda Baker Signed Date: 07/15/2024 08:17 ET Workstation ID: [id number] Transcribed By: Self Edit Transcribed Date: 07/15/2024 [...] in the great toe and tibiotalar joint. Tori FERNÁNDEZ ([id number]) -------- FINAL REPORT -------- Dictated By: Zayda Baker Dictated Date: 07/15/2024 08:16 ET Assigned Physician: Zayda Baker Reviewed and Electronically Signed By: Zayda Baker Signed Date: 07/15/2024 08:17 ET Workstation ID: [id number] Transcribed By: Self Edit Transcribed Date: 07/15/2024 08:16 ET Brian Agnuiano MD IMG XR PROCEDURES Final Result documented in this encounter Visit Diagnoses Diagnosis [...] 1 dose 2324 (Given - Provider: Melina Romero RN) documented in this encounter Care Teams Work Station Support Specialist Relationship Specialty Start Date End Date Elieser Moreno MD [address] [place] [address] [address] [place] PCP - General Internal Medicine 05/13/24 documented as of this encounter
== END 2024-08-13 11:43 | disposition home or self-care (01) ==
PROVIDERS: PCP Internal Medicine; Visit Provider Internal Medicine
DX: R79.89 Other specified abnormal findings of blood chemistry (principal); R73.01 Impaired fasting glucose; K75.81 Nonalcoholic steatohepatitis (NASH); E66.9 Obesity, unspecified; E78.5 Hyperlipidemia, unspecified
CPT/HCPCS: 99214

== ENCOUNTER → 2024-08-13 10:55 | Outpatient (BNVA) | payer MEDICARE, MEDICAID, SELFPAY | PROVIDERS: PCP Internal Medicine; Visit Provider Internal Medicine | DX: R79.89 Other specified abnormal findings of blood chemistry (principal); K75.81 Nonalcoholic steatohepatitis (NASH); R73.01 Impaired fasting glucose; E66.9 Obesity, unspecified; Z68.32 Body mass index [BMI] 32.0-32.9, adult; E78.5 Hyperlipidemia, unspecified | CPT/HCPCS: 99212 ==

== ENCOUNTER 2024-09-16 08:06 | Outpatient (REF) | payer MEDICARE, MEDICAID, SELFPAY ==
[2024-09-16 08:20] LABS: MANUAL DIFF FLAG NO
--- OUTSIDE RECORDS SUMMARY | 2024-09-16 08:21 | XMS_ITS | Clinical Summary ---
Author Organization [facility] Address [address] [place] [address] Phone Care Team Providers Care Manager Bench Name Role Phone Elieser Moreno MD Primary Care Provider [phone] Allergies No known active allergies Medications allopurinoL [...] a day if needed. 04/23/2024 Active lisinopriL (PRINIVIL,ZESTR IL) 20 mg tablet [...] crush or chew. 12 capsule 07/01/2024 Active Active Problems No known active problems Encounters Date Type Department Care Team Description 07/14/2024 10:43 PM EST - 07/15/2024 12:15 AM EST [facility] Emergency [address] [place] [phone] Acute gout of right foot, unspecified cause (Primary Dx) Discharge Disposition: Home or Self Care 07/01/2024 5:38 AM EST - 07/01/2024 8:29 AM EST [facility] Emergency [address] [place] [address] Anant Church, DO Acute cough (Primary Dx); Mild asthma without complication, unspecified whether persistent Discharge Disposition: Home or Self Care from [...] 2 - PCV) 03/15/2018 03/15/2017 COVID-19 Vaccine (4 - season) 2024 06/04/2021, 09/30/2020, 09/02/2020 Influenza Vaccine [...] ECG 12-LEAD STAT 06/30/2024 1:17 PM EST from Last 3 Months Results * (ABNORMAL) CBC auto differential (07/14/2024 6:36 PM EST) Only the most recent of2 resultswithin the time period is included. WBC 8.0 4.8 - 10.8 K/mcL LAB HEMETOLOGY METHOD 07/14/2024 7:06 PM [facility] RBC 4.70 4.50 - 5.50 M/mcL LAB HEMETOLOGY METHOD 07/14/2024 7:06 PM [facility] Hemoglobin 14.5 13.5 - 17.5 g/dL LAB HEMETOLOGY METHOD 07/14/2024 7:06 PM [facility] Hematocrit 42.8 42.0 - 54.0 % LAB HEMETOLOGY METHOD 07/14/2024 7:06 PM [facility] MCV 91.5 79.0 - 98.0 FL LAB HEMETOLOGY METHOD 07/14/2024 7:06 PM [facility] MCH 31.0 27.0 - 32.0 pcg LAB HEMETOLOGY METHOD 07/14/2024 7:06 PM [facility] MCHC 33.9 32.0 - 37.0 g/dL LAB HEMETOLOGY METHOD 07/14/2024 7:06 PM [facility] RDW 13.4 11.0 - 15.0 % LAB HEMETOLOGY METHOD 07/14/2024 7:06 PM [facility] Platelets 230 130 - 400 K/mcL LAB HEMETOLOGY METHOD 07/14/2024 7:06 PM [facility] MPV 9.8 7.0 - 11.0 FL LAB HEMETOLOGY METHOD 07/14/2024 7:06 PM [facility] NRBC 0.0 <1.0 % LAB HEMETOLOGY METHOD 07/14/2024 7:06 PM [facility] NRBC Absolute 0.00 <0.10 K/mcL LAB HEMETOLOGY METHOD 07/14/2024 7:06 PM [facility] Neutrophils Relative 60.4 % LAB HEMETOLOGY METHOD 07/14/2024 7:06 PM [facility] Lymphocytes Relative 28.7 % LAB HEMETOLOGY METHOD 07/14/2024 7:06 PM [facility] Monocytes Relative 8.8 % LAB HEMETOLOGY METHOD 07/14/2024 7:06 PM [facility] Eosinophils Relative 1.1 % LAB HEMETOLOGY METHOD 07/14/2024 7:06 PM [facility] Basophils Relative 0.4 % LAB HEMETOLOGY METHOD 07/14/2024 7:06 PM [facility] Immature Granulocytes Relative 0.6 % LAB HEMETOLOGY METHOD 07/14/2024 7:06 PM [facility] Neutrophils Absolute 4.85 1.50 - 7.00 K/mcL LAB HEMETOLOGY METHOD 07/14/2024 7:06 PM [facility] Lymphocytes Absolute 2.31 1.00 - 5.00 K/mcL LAB HEMETOLOGY METHOD 07/14/2024 7:06 PM [facility] Monocytes Absolute 0.71 0.20 - 1.00 K/mcL LAB HEMETOLOGY METHOD 07/14/2024 7:06 PM [facility] Eosinophils Absolute 0.09 0.00 - 0.50 K/mcL LAB HEMETOLOGY METHOD 07/14/2024 7:06 PM [facility] Basophils Absolute 0.03 0.00 - 0.20 K/mcL LAB HEMETOLOGY METHOD 07/14/2024 7:06 PM [facility] Immature Granulocytes Absolute 0.05(H) 0.00 - 0.03 K/mcL LAB HEMETOLOGY METHOD 07/14/2024 7:06 PM [facility] Blood Venous blood specimen / Unknown Venipuncture / Unknown 07/14/2024 6:36 PM EST 07/14/2024 6:58 PM EST us Brian B Anguiano MD LAB BLOOD ORDERABLES Final Resu lt Performing Organization Address City/[facility]/ZIP Co de Phone Number [facility] [address] [place] [address], [place] [phone] * Uric acid (07/14/2024 6:36 PM EST) Uric Acid 8.7 3.7 - 9.2 mg/dL LAB CHEMISTRY METHOD 07/14/2024 7:[address] [facility] Blood Venous blood specimen / Unknown Venipuncture / Unknown 07/14/2024 6:36 PM EST 07/14/2024 6:58 PM EST [facility] Aaron Anguiano MD LAB BLOOD ORDERABLES Final Resu lt Performing Organization Address [facility]/ZIP Co de Phone Number [facility] [address] [place] [address], [place] [phone] * (ABNORMAL) Basic metabolic panel (07/14/2024 6:36 PM EST) Sodium 140 133 - 145 mmol/L LAB CHEMISTRY METHOD 07/14/2024 7:25 PM [facility] Potassium 3.7 3.5 - 5.5 mmol/L LAB CHEMISTRY METHOD 07/14/2024 7:25 PM [facility] Chloride 104 96 - 110 mmol/L LAB CHEMISTRY METHOD 07/14/2024 7:25 PM [facility] CO2 29 21 - 32 mmol/L LAB CHEMISTRY METHOD 07/14/2024 7:25 PM [facility] Anion Gap 7 3 - 11 LAB CHEMISTRY METHOD 07/14/2024 7:25 PM [facility] Glucose 131(H) 70 - 100 mg/dL LAB CHEMISTRY METHOD 07/14/2024 7:25 PM [facility] BUN 16 5 - 25 mg/dL LAB CHEMISTRY METHOD 07/14/2024 7:[address] [facility] Creatinine 0.89 0.70 - 1.30 mg/dL LAB CHEMISTRY METHOD 07/14/2024 7:[address] [facility] eGFR 110 >=60 mL/min/1. 73m2 LAB CHEMISTRY METHOD 07/14/2024 7:[address] [facility] Comment:Calculation based on the??Chronic Kidney Disease Epidemiology Collaboration (CKD-EPI) equation refit??without adjustment for race. BUN/Creatinine Ratio 18.0 LAB CHEMISTRY METHOD 07/14/2024 7:[address] [facility] Calcium 9.7 8.5 - 10.5 mg/dL LAB CHEMISTRY METHOD 07/14/2024 7:[address] [facility] Blood Venous blood specimen / Unknown Venipuncture / Unknown 07/14/2024 6:36 PM EST 07/14/2024 6:58 PM EST Brian Anguiano MD LAB BLOOD ORDERABLES Final Resu lt [facility] [address] [place] [address], * XR Foot 3+ Views Right (07/14/2024 6:25 PM EST) Anatomical Region Laterality Modality Lower Extremities, Foot Right Radiogra phic Imaging 07/15/2024 8:16 AM EST Impressions 07/15/2024 8:17 AM EST Impression: 1. No acute osseous abnormality identified. 2. 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 Telerad JOLENE ([id number]) -------- FINAL REPORT -------- Dictated By: Zayda Baker Dictated Date: 07/15/2024 08:16 ET Assigned Physician: Zayda Baker Reviewed and Electronically Signed By: Zayda Baker Signed Date: 07/15/2024 08:17 ET Workstation ID: [id number] Transcribed By: Self Edit Transcribed Date: 07/15/2024 [...] great toe and tibiotalar joint. Tori FERNÁNDEZ ([id number]) -------- FINAL REPORT -------- Dictated By: Zayda Baker Dictated Date: 07/15/2024 08:16 ET Assigned Physician: Zayda Baker Reviewed and Electronically Signed By: Zayda Baker Signed Date: 07/15/2024 08:17 ET Workstation ID: [id number] Transcribed By: Self Edit Transcribed Date: 07/15/2024 08:16 ET us Brianhair Anguiano MD IMG XR PROCEDURES Final Result * ECG-Annotated (07/01/2024) Only the most recent of2 resultswithin the time period is included. us [...] Signed Date: 07/01/2024 08:33 ET Workstation ID: [id number] Transcribed By: Self Edit Transcribed Date: 07/01/2024 [...] Signed Date: 07/01/2024 08:33 ET Workstation ID: [id number] Transcribed By: Self Edit Transcribed Date: 07/01/2024 08:33 ET us Terry Montanez MD IMG XR PROCEDURES Final R esult * (ABNORMAL) POCT Glucose, blood (06/30/2024 6:32 PM EST) [facility] Glucose POCT 126(H) 70 - 100 mg/dL 06/30/2024 6:[address] [facility] Blood Capillary blood specimen / Unknown 06/30/2024 6:32 PM EST 06/30/2024 6:35 PM EST Generic Provider Poct LAB POINT OF CARE TEST DOCKED DEVICE UNSOLICITED RESULTS Final Result Performing Organization Address City/[facility]/ZIP Co de Phone Number [facility] [address] [place] [address], * Troponin I high sensitivity (06/30/2024 3:15 PM EST) Only the most recent of2 resultswithin the time period is included. [facility] High Sensitivity Troponin I 5 <=79 ng/L LAB CHEMISTRY METHOD 06/30/2024 4:[address] [facility] Blood Venous blood specimen / Unknown Venipuncture / Unknown 06/30/2024 3:15 PM EST 06/30/2024 3:[address] [facility] - 06/30/2024 4:31 PM EST High levels of biotin in samples may falsely decrease hsTroponin values. ??Use caution when interpreting hsTroponin results in patients taking biotin who exhibit renal impairment (eGFR <60) or in patients taking more than 20 mg/day of biotin. Terry Montanez MD LAB BLOOD ORDERABLES Aide l Result [facility] [address] [place] [address], [place] [phone] * ECG 12 lead (06/30/2024 3:13 PM EST) Only the most recent of2 resultswithin the time period is included. [facility] Ventricular Rate ECG 102 BPM GEM[facility] Atrial Rate 102 BPM GEMUSE P-R Interval 152 ms GEMUSE QRS Duration 86 ms GEMUSE Q-T Interval 366 ms GEMUSE QTc 477 ms GEMUSE P Wave [place] 40 degrees GEMUSE R [place] 6 degrees GEMUSE T [place] 25 degrees GEMUSE ECG Interpretation Sinus tachycardia Minimal voltage criteria for LVH, may be normal variant Borderline ECG When compared with ECG of 30-JUN-2024 13:17, (unconfirmed) No significant change was found Confirmed by Mango FERGUSON JOHN ([id number]) on 06/30/2024 10:27:16 PM GEMUSE 06/30/2024 3:13 PM EST 06/30/2024 10:27 PM EST Terry Montanez MD ECG ORDERABLES Final Res ult Performing Organization Address [facility]/ZIP Co de Phone Number GEMUSE * B-type natriuretic peptide (06/30/2024 1:19 PM EST) BNP 2 <=100 pcg/mL LAB CHEMISTRY METHOD 06/30/2024 2:[address] [facility] Blood Venous blood specimen / Unknown Venipuncture / Unknown 06/30/2024 1:19 PM EST 06/30/2024 1:57 PM EST Terry Montanez MD LAB BLOOD ORDERABLES Aide l Result Performing Organization Address [facility]/ZIP Co de Phone Number [facility] [address] [place] [address], * (ABNORMAL) Magnesium (06/30/2024 1:19 PM EST) Magnesium 1.8(L) 1.9 - 2.6 mg/dL LAB CHEMISTRY METHOD 06/30/2024 2:[address] [facility] Blood Venous blood specimen / Unknown Venipuncture / Unknown 06/30/2024 1:19 PM EST 06/30/2024 1:58 PM EST us Terry Montanez MD LAB BLOOD ORDERABLES Aide l Result [facility] [address] [place] [address], [place] [phone] * Lipase (06/30/2024 1:19 PM EST) Pathologist [facility] Lipase 50 13 - 75 unit/L LAB CHEMISTRY METHOD 06/30/2024 2:40 PM [facility] Blood Venous blood specimen / Unknown Venipuncture / Unknown 06/30/2024 1:19 PM EST 06/30/2024 1:58 PM EST us Terry Montanez MD LAB BLOOD ORDERABLES Aide l Result Performing Organization Address [facility]/ZIP Co de Phone Number [facility] [address] [place] [address], [place] [phone] * (ABNORMAL) Comprehensive metabolic panel (06/30/2024 1:19 PM EST) [facility] Sodium 138 133 - 145 mmol/L LAB CHEMISTRY METHOD 06/30/2024 2:40 PM [facility] Potassium 4.4 3.5 - 5.5 mmol/L LAB CHEMISTRY METHOD 06/30/2024 2:40 PM [facility] Chloride 104 96 - 110 mmol/L LAB CHEMISTRY METHOD 06/30/2024 2:40 PM [facility] CO2 29 21 - 32 mmol/L LAB CHEMISTRY METHOD 06/30/2024 2:40 PM [facility] Anion Gap 5 3 - 11 LAB CHEMISTRY METHOD 06/30/2024 2:40 PM [facility] Glucose 165(H) 70 - 100 mg/dL LAB CHEMISTRY METHOD 06/30/2024 2:40 PM [facility] BUN 18 5 - 25 mg/dL LAB CHEMISTRY METHOD 06/30/2024 2:40 PM [facility] Creatinine 1.39(H) 0.70 - 1.30 mg/dL LAB CHEMISTRY METHOD 06/30/2024 2:40 PM [facility] eGFR 65 >=60 mL/min/1. 73m2 LAB CHEMISTRY METHOD 06/30/2024 2:40 PM [facility] Comment:Calculation based on the??Chronic Kidney Disease Epidemiology Collaboration (CKD-EPI) equation refit??without adjustment for race. BUN/Creatinine Ratio 12.9 LAB CHEMISTRY METHOD 06/30/2024 2:40 PM [facility] Calcium 10.0 8.5 - 10.5 mg/dL LAB CHEMISTRY METHOD 06/30/2024 2:40 PM [facility] AST (SGOT) 91(H) 10 - 42 unit/L LAB CHEMISTRY METHOD 06/30/2024 2:40 PM [facility] ALT (SGPT) 190(H) 10 - 60 unit/L LAB CHEMISTRY METHOD 06/30/2024 2:40 PM [facility] Alkaline Phosphatase 84 42 - 121 unit/L LAB CHEMISTRY METHOD 06/30/2024 2:40 PM [facility] Total Protein 7.5 6.0 - 8.0 g/dL LAB CHEMISTRY METHOD 06/30/2024 2:40 PM [facility] Albumin 4.1 3.2 - 5.0 g/dL LAB CHEMISTRY METHOD 06/30/2024 2:40 PM [facility] Total Bilirubin 0.8 0.0 - 1.4 mg/dL LAB CHEMISTRY METHOD 06/30/2024 2:40 PM [facility] Blood Venous blood specimen / Unknown Venipuncture / Unknown 06/30/2024 1:19 PM EST 06/30/2024 1:58 PM EST us Terry Montanez MD LAB BLOOD ORDERABLES Aide child Result [facility] [address] [place] [address], from Last 3 Months Insurance [place] - [place] Member Subscriber Plan / Payer (Ef fective 2024-Present) Name:Adam Montesinos Relation to Subscriber:Self Name:Adam Montesinos Payer ID:[id number] Group ID:Not on file Type:Not on file Address: [facility] ATTN:[employer] [address] [place], [place] MEDICARE [place] - [place] Care Teams Manager Bench Relationship Specialty Start Date End Date Elieser Moreno MD [address] [facility] [address] JUANA Bunch PCP - General Internal Medicine 05/13/24
[2024-09-16 08:42] LABS: Appearance Urine Clear; Color Urine Yellow; Glucose Urine UA Negative (Negative); Leukocyte Esterase Urine Negative (Negative); Nitrite Urine Negative (Negative); Urine Blood Negative (Negative); Urine Ketones Trace mg/dL (Negative); Urine Protein Negative (Neg-Trace)
[2024-09-16 08:48] LABS: Basophils Percent Auto 0.7 % (0-2); Eosinophils Absolute Auto 0.2 X10*3/uL (0.0-0.4); Eosinophils Percent Auto 4.2 % (0-4); Hematocrit 45.3 % (42.0-52.0); Hemoglobin 15.9 g/dl (14.0-18.0); Imm Gran Abs Auto 0.03 X10*3/uL (0.00-0.03); Imm Gran Pct Auto 0.5 % (0.0-0.4); Lymphocytes Absolute Auto 2.6 X10*3/uL (1.2-4.9); Lymphocytes Percent Auto 46.2 % (20-40); Mean Corpuscular HGB Conc 35.1 g/dl (31.0-36.0); Mean Corpuscular Hemoglobin 31.5 pg (27.0-33.0); Mean Corpuscular Volume 89.9 fL (80.0-98.0); Mean Platelet Volume 9.2 fL (9.4-12.4); Monocytes Absolute Auto 0.3 X10*3/uL (0.1-1.2); Monocytes Percent Auto 5.6 % (2-11); Neutrophils Absolute Auto 2.4 x10*3/uL (2.0-8.3); Neutrophils Percent Auto 42.8 % (45-73); Platelet Count 216 X10*3/uL (160-400); Red Blood Count 5.04 X10*6/uL (4.60-5.80); Red Cell Distribution Width 12.5 % (11.0-16.0); White Blood Count 5.7 X10*3/uL (4.8-10.8)
[2024-09-16 08:50] LABS: Prothrombin Time 11.9 SEC (10.9-12.4)
[2024-09-16 08:59] LABS: Estimated Average Glucose 126 mg/dL; Hemoglobin A1C 174.1075 umol/L; Total Hemoglobin (HGBA1C) 4174.1208 umol/L
[2024-09-16 09:32] LABS: Alanine Aminotransferase 103 U/L (0-40); Albumin Level 4.8 g/dL (3.5-5.0); Alkaline Phosphatase 76 U/L (39-117); Anion Gap 12 (12-20); Aspartate Amino Transferase 59 U/L (5-37); Blood Urea Nitrogen 15 mg/dL (9-16); Calcium 9.9 mg/dL (8.4-10.2); Carbon Dioxide 27 mmol/L (22-29); Chloride 105 mmol/L (96-108); Cholesterol 220 mg/dL (<200); Estimated Glomerular Filt Rate > 60; Glucose Fasting 126 mg/dL (60-99); Glucose Random 126 mg/dL (60-115); HDL Cholesterol 43 mg/dL (>40); Iron 181 mcg/dL (45-160); LDL Cholesterol Calculated 148 mg/dL (<100); Percent Iron Saturation 52 % (15-50); Potassium 4.1 mmol/L (3.3-5.1); Sodium 140 mmol/L (135-145); Total Iron Binding Capacity 348 mcg/dL (228-428); Triglycerides 149 mg/dL (<150); Unsaturated Iron Binding 167 ug/dL; Uric Acid 10.3 mg/dL (3.4-7.0)
[2024-09-16 09:42] LABS: Ferritin 778 ng/mL (20-250); HIV AB/AG Nonreactive (Nonreactive); HIV Num 1 0.07 S/CO (0.00-0.99)
[2024-09-16 09:54] LABS: TSH reflex Free T4 1.31 uIU/mL (0.32-4.0); Vitamin D 25-OH Total 33.1 ng/mL (>30)
== END 2024-09-16 08:07 | disposition home or self-care (01) ==
LOC: HO.LAB 08:06
PROVIDERS: Absent Provider Internal Medicine; PCP Internal Medicine; Visit Provider Internal Medicine
DX: D64.9 Anemia, unspecified (principal); E78.00 Pure hypercholesterolemia, unspecified; E55.9 Vitamin D deficiency, unspecified; R73.01 Impaired fasting glucose; R30.0 Dysuria; M10.9 Gout, unspecified; R79.89 Other specified abnormal findings of blood chemistry; K75.81 Nonalcoholic steatohepatitis (NASH)
CPT/HCPCS: 36415; 80053; 80061; 81003; 82306; 82728; 83036; 83540; 84443; 84550; 85025; 85610; 87389

== ENCOUNTER 2024-09-18 10:54 | Outpatient (AMB) | payer MEDICARE, MEDICAID, SELFPAY ==
[2024-09-18 11:12] VITALS: BP 110/80; PULSE 88; O2SAT 96; BMI 32.8
--- NOTE | 2024-09-18 11:12 | A.OFFPC_ITS ---
Vital Signs 09/18/24 11:12 Height 6 ft 1.5 in Weight 252 lb 6 oz BMI 32.8 BP 110/80 Blood Pressure Location Lt brachial Position Sitting Pulse 88 Pulse Source Pulse Oximeter Pulse Oximetry (%) 96 Oxygen Delivery Method Room Air Intake Visit Reasons: Rsched from 05/01- [facility] Domestic Maid Required: No Accompanied by: Self / Same As Patient Allergies No Known Allergies Allergy (Verified 09/18/24 11:55) Medication List - Last Reconciled 09/18/24 by Elieser Moreno MD allopurinol 300 mg PO DAILY 90 days amantadine HCl 100 mg PO DAILY baclofen 20 mg PO TID PRN 30 days cholecalciferol (vitamin D3) 50 mcg PO DAILY 90 days colchicine 0.6 mg PO BID 90 days docusate sodium (Colace) 100 mg PO DAILY fluoxetine 40 mg PO DAILY fluticasone propionate 100 mcg/actuation (Flovent Diskus) 1 inh inhalation BID hot/cold therapy aids (ThermaCare Cold Wrap Joint pads) 1-2/ week as needed for left hip pain hydroxyzine HCl 25 mg PO BID indomethacin 25 mg PO BID lidocaine 4% 1 patch topical DAILY PRN lidocaine 5% 3 patches topical Q24H PRN lisinopril 20 mg PO DAILY loratadine 10 mg PO DAILY metformin ER 500 mg PO BID 30 days methylcellulose (laxative) (Citrucel) 500 mg PO TID Mitigare (colchicine) 0.6 mg PO BID PRN 30 days NS mometasone 100 mcg/actuation (Asmanex HFA) 1 puff inhalation BID mupirocin 2% 1 appl topical BID 10 days naproxen 500 mg PO BID PRN quetiapine 100 mg PO BEDTIME quetiapine 50 mg PO BEDTIME risperidone 1 mg PO DAILY simethicone (Gas Relief (simethicone)) 125 mg PO TID-QID 30 days tizanidine 4 mg PO TID PRN 30 days tramadol 50 mg PO TID PRN 10 days Ventolin HFA 90 mcg/actuation (albuterol sulfate) 2 puffs PO Q6H PRN NS Tobacco use date assessed: 09/18/24 Dental Screening Dental Screen Date: 09/18/24 Did you have a dental visit in the last 12 months?: Yes Did you have a dental problem in the last 6 months where you did not have access to dental care?: No Was dental information given to patient?: Patient has dentist HPI Rsched from 05/01- HPI Details Patient comes in today for his follow-up visit States that he feels okay He reports that he went to the ER last week for recurrent pain over the left side of his chest wall; he also reports (+) recurrent pain near the left axillary area Cardiac work ups done at the ER all reportedly came back normal and he was eventually discharged back home He is currently still experiencing the recurrent pain over his left chest wall and left axillary area and would like to get something to help relieve the pain He denies any headaches or dizziness Denies any exertional chest pains, no increased shortness of breath No nausea/vomiting, no abdominal pain No change in bowel habits noted States that he needs his asthma inhalers Rx refilled He had his follow-up labs done yesterday - to discuss his results [facility] Medical History Lumbar degenerative disc disease Essential hypertension Gout Learning disability Retinal dystrophy Vitamin D deficiency Impaired fasting glucose Obesity (BMI 30-39.9) Depression History of gout Chronic idiopathic constipation Asthma Benign essential hypertension Chronic constipation MORENO (nonalcoholic steatohepatitis) Rectal bleeding Surgical History H/O removal of testicle History of shoulder surgery Family History Mother Hypertension Father No problems noted. Other Mental health problem Social History Household Members Other:: Sister Housing: House Alcohol intake: former Patient Tobacco Use Status: Never used Tobacco e-Cigarette/Vaping Use: Never Used Second Hand Smoke Exposure: No service: No Current occupational status: disabled Cognitive needs: No Hearing needs: No Vision needs: Yes Questionnaire PHQ-9 Over the last 2 weeks, how often have you been bothered by any of the following problems? 1. Little interest or pleasure in doing things: not at all 2. Feeling down, depressed, or hopeless: not at all 3. Trouble falling or staying asleep, or sleeping too much: not at all 4. Feeling tired or having little energy: not at all 5. Poor appetite or overeating: not at all 6. Feeling bad about yourself - or that you are a failure or have let yourself or your family down: not at all 7. Trouble concentrating on things, such as reading the newspaper or watching television: not at all 8. Moving or speaking so slowly that other people could have noticed. Or the opposite - being so fidgety or restless that you have been moving around a lot m ore than usual: not at all 9. Thoughts that you would be better off or of hurting yourself in some way: not at all Total score: 0 Depression Screening Interpretation: Negative Depression Screening Done: Yes 43421 - PHQ-9 Billing: Yes Source: Developed by Drs. Luis Simon, Virgen Davis, Florencio Trevizo and colleagues, with an educational heber from [employer]. Thrive Questionnaire Date Thrive assessed: 09/18/24 I am a: Patient What is your living situation today?: I have a steady place to live Within the past 12 months, did the food you bought not last and you didn't have the money to get more?: Never true Within the past 12 months, did you worry whether your food would run out before you got money to buy more?: Never true Do you have trouble paying for medicines?: No Do you have trouble getting transportation to medical appointments?: No Do you have trouble paying your heating and electricity bill?: No Do you have trouble taking care of your child, family member or friend?: No Do you have trouble with day-to-day activities such as bathing, preparing meals, shopping, managing finances, etc.?: No Are you currently unemployed and looking for a job?: No Are you interested in more education?: No Please select the resources that you would like help with: None Currently or been in a relationship where the following occur: No concerns reported THRIVE Score: 0 AUDIT C Alcohol Use Questionnaire (AUDIT-C) 1. How often do you have a drink containing alcohol?: Never 3. How often do you have six or more drinks on one occasion?: Never Total Score: 0 Score Reviewed/Action Taken: Yes SUKHWINDER-7 AMB Questionnaire SUKHWINDER-7 Date SUKHWINDER - 7 assessed: 09/18/24 Feeling nervous, anxious, or on edge: 0 = Not at all Not being able to stop or control worryin = Not at all Worrying too much about different things: 0 = Not at all Trouble relaxin = Not at all Being so restless that it is hard to sit still: 0 = Not at all Becoming easily annoyed or irritable: 0 = Not at all Feeling afraid as if something awful might happen: 0 = Not at all Total SUKHWINDER-7 score (0-4 normal; 5-9 mild; 10-14 moderate; 15-21 severe): 0 Source: Developed by Drs. Luis Simon, Virgen Davis, Florencio Trevizo and colleagues, with an educational heber from [employer]. SUKHWINDER-7 Assessment Billing SUKHWINDER-7 Assessment Tool: SUKHWINDER-7 Assessment 98383 Review of Systems Const Denies chills, Denies fatigue, Denies fever(s) and Denies headache(s) Eyes Reports blurry vision (patient is legally blind in both eyes) ENT Denies dysphagia, Denies dizziness, Denies otalgia, Denies headache(s), Denies neck pain, Denies odynophagia and Denies sore throat Card Reports chest pain (recurrent over the left anterior chest wall and into the L axillary area), Denies chest pain with activity, Denies palpitations and Denies dyspnea Resp Denies chest congestion, Denies cough and Denies dyspnea GI Denies abdominal pain, Reports constipation (better controlled on Rx), Denies dysphagia, Denies heartburn, Denies diarrhea, Denies nausea, Denies odynophagia and Denies vomiting Denies difficulty urinating, Denies dysuria, Denies nocturia and Denies urinary frequency Musc Details: (+) right foot pain - improving Denies back pain, Reports arthralgias (left hip - chronic - improved with cortisone injection from ortho) and Denies neck pain Skin/Breast Denies rash Neuro Denies dizziness and Denies headache(s) Endo Denies fatigue and Denies palpitations Physical exam (Primary Care) Vital Signs: Last Vital Signs Pulse 88 09/18/24 11:12 BP 110/80 09/18/24 11:12 Pulse Ox 96 09/18/24 11:12 Oxygen Delivery Method Room Air 09/18/24 11:12 BMI result Body Mass Index 32.8 Tobacco/Smoking Status: Tobacco use Status Tobacco use date assessed 09/18/24 09/18/24 11:18 Patient Tobacco Use Status Never used Tobacco 09/18/24 11:18 e-Cigarette/Vaping Use Never Used 09/18/24 11:18 PHQ-9: PHQ-9 Score PHQ-9: Total score 0 09/18/24 11:56 Depression Screening Interpretation: Negative Thrive Assessment: Date of Thrive Assessment Date Thrive assessed 09/18/24 09/18/24 11:18 Currently or been in a relationship where the following occur: No concerns reported Const General: no acute distress and alert HENMT Ears: TM's normal bilaterally and EAC's normal Throat: Yes posterior oropharynx normal and Yes tonsils normal (no TP congestion noted) Neck Neck: Yes supple and No lymphadenopathy Thyroid: Thyroid normal Chest Other: NO reproducible tenderness noted on palpation of the left chest wall or left axillary area Chest palpation & inspection: normal inspection of the chest Resp Auscultation: clear to auscultation bilaterally, no rales and no wheezes Cardio Rate: regular rate Rhythm: regular rhythm Heart sounds: no murmurs GI Palpation (GI): Soft to palpation and nontender Auscultation: normal bowel sounds General: Yes no CVA tenderness Back/Spine/Pelvis Back: no CVA tenderness Thoracic/Lumbar Spine: No lumbar spinal tenderness Skin Rashes: no rashes Extrem General: Yes no clubbing, cyanosis or edema Left lower extremity: hip/thigh Details: tenderness Location: of the hip Location: anterolaterally Results Reviewed Results Reviewed: Laboratory Tests 09/16/24 09/16/24 08:16 08:17 WBC 5.7 Hgb 15.9 Hct 45.3 Plt Count 216 D Sodium 140 Potassium 4.1 Creatinine 0.94 Estimated GFR > 60 Fasting Glucose 126 H Hemoglobin A1c % 6.0 Uric Acid 10.3 H Calcium 9.9 Iron 181 H % Saturation 52 H Ferritin 778 H AST 59 H ALT 103 H Triglycerides 149 Cholesterol 220 H LDL Cholesterol, Calc 148 H HDL Cholesterol 43 25-OH Vitamin D Total 33.1 TSH 1.31 Ur Specific [place] 1.020 Urine Protein Negative Urine Glucose (UA) Negative Urine Blood Negative Urine Nitrite Negative Ur Leukocyte Esterase Negative Coding Level of Care Code Est Pt Level 4 (54676) Complex EM visit Add On G2211 Diagnoses Type 2 diabetes mellitus without complication, without long-term current use of insulin E11.9 Diabetes mellitus type: type 2 Diabetes mellitus continuous churn buttermaker insulin use: without senior care use Diabetes mellitus complication status: without complication Mixed hyperlipidemia E78.2 Essential hypertension I10 Mild intermittent asthma without complication J45.20 Asthma severity: mild Asthma persistence: intermittent Asthma complication type: uncomplicated Abnormal iron saturation R79.0 Left-sided chest wall pain R07.89 Chronic idiopathic constipation K59.04 Degeneration of intervertebral disc of lumbar region with discogenic back pain and lower extremity pain M51.362 Disc-related pain type: discogenic back pain and lower extremity pain 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 M16.32 Vitamin D deficiency E55.9 Elevated LFTs R79.89 Chronic gout without tophus, unspecified cause, unspecified site [id number] Gout site: unspecified site Gout etiology: unspecified cause Chronicity: chronic Presence of tophus: without tophus Episode of recurrent major depressive disorder, unspecified depression episode severity F33.9 Depression Type: major depressive disorder Major depression recurrence: recurrent Active/Remission status: currently active Major depression episode severity: unspecified Obesity (BMI 30-39.9) E66.9 Additional Codes SUKHWINDER-7 Assessment Billing - SUKHWINDER-7 Assessment Tool: SUKHWINDER-7 Assessment 44557 ([id number]) PHQ-9 - 55282 - PHQ-9 Billing: Yes ([id number]) Assessment & Plan Assessment & Plan (1) Diabetes mellitus: Code(s): E11.9 - Type 2 diabetes mellitus without complications Category: Medical Qualifiers: Diabetes mellitus type: type 2 Diabetes mellitus continuous churn buttermaker insulin use: without continuous churn buttermaker use Diabetes mellitus complication status: without complication Qualified Code(s): E11.9 - Type 2 diabetes mellitus without complications Plan: His HgbA1c improved to 6.0% on his labs done yesterday (in-office HgbA1c was previously at 7.6% a few months ago; was at 5.9% back in December 2023) - goal is at least <7.0% but ideally <6.5% Reinforced diabetic diet Patient was started on Metformin IR 500 mg BID at the ER at [facility] last month but states that he is not able to tolerate the medication (has abdominal pain and cramping every time he takes his Metformin IR) We switched him over to Metformin ER 500 mg BID a few months ago and he appears to be tolerating this Rx so far Will have him recheck his labs and HgbA1c in 3 months for follow up (2) Mixed hyperlipidemia: Code(s): E78.2 - Mixed hyperlipidemia Category: Medical Plan: Results of his labs done yesterday reviewed and discussed with patient Reinforced low cholesterol diet Will recheck his labs and fasting lipids in 3 months for follow up (3) Essential hypertension: Code(s): I10 - Essential (primary) hypertension Category: Medical Plan: Reinforced low sodium diet - goal is systolic BP of 120 mm or less Continue Lisinopril 20 mg QD (4) Asthma: Code(s): J45.909 - Unspecified asthma, uncomplicated Category: Medical Qualifiers: Asthma severity: mild Asthma persistence: intermittent Asthma complication type: uncomplicated Qualified Code(s): J45.20 - Mild intermittent asthma, uncomplicated Plan: Controlled Continue Flovent HFA 110 mcg 2 puffs BID and Ventolin HFA 2 puffs QID PRN (5) Abnormal iron saturation: Code(s): R79.0 - Abnormal level of blood mineral Category: Medical Plan: Patient's LFTs are again elevated and higher than previous He also appears to have elevated iron stores as evidenced in his high ferritin level and elevated iron studies Will send him for hemochromatosis work up MIKEY - he is advised to get this done as soon as he can; patient states that he can go and get this done next Sunday (6) Left-sided chest wall pain: Code(s): R07.89 - Other chest pain Category: Medical Plan: Cardiac work ups done at the ER last week came back normal Have advised / reassured patient again that this is most likely musculoskeletal pain but he is adamant that he needs something to help relieve his pain and likely because of his cognitive impairment and intellectual disability, he is unable to fully comprehend and understand what we are trying to explain to him Have advised him that I will go ahead and sent in prescriptions for him to help with his pain but he can also apply some warm compress to his left chest wall and left axillary area PRN for symptomatic relief Will send in for him prescriptions for lidocaine ointment were% to apply to the painful areas over his left anterior chest wall and left axillary area QID PRN for pain Will also start him on Meloxicam 7.5 mg QD with food PRN for pain - will only send in Rx for a 10 days' supply so he cannot continue taking it indefinitely, which would not be recommended as he also takes Naproxen PRN for his headaches (7) Chronic idiopathic constipation: Comment: Pleasant 42-year-old male-many questions answered to his satisfaction, Very happy progress he is made being able to maintain consistent bowel pattern Code(s): K59.04 - Chronic idiopathic constipation Category: Medical Plan: Continue Linzess 145 mcg QD and Senna 8.6 mg PRN Encouraged again on increased oral fluids and dietary fiber Follow up with GI as scheduled (8) Lumbar degenerative disc disease: Code(s): M51.369 - Other intervertebral disc degeneration, lumbar region without mention of lumbar back pain or lower extremity pain Category: Medical Qualifiers: Disc-related pain type: discogenic back pain and lower extremity pain Qualified Code(s): M51.362 - Other intervertebral disc degeneration, lumbar region with discogenic back pain and lower extremity pain Plan: X-rays of the lumbar spine done a couple of years ago revealed (+) degenerative disc disease Reinforced activity and weight-lifting restrictions (9) 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: Code(s): M16.32 - Unilateral osteoarthritis resulting from hip dysplasia, left hip Category: Medical Plan: Left hip x-rays done back in 2013 revealed findings of mild left hip dysplasia; repeat left hip x-rays done last year revealed the same - (+) findings of left hip dysplasia He was seen by [facility] a couple of years ago but he requested to be referred to [facility] for a second opinion and he is now following up with [facility] regularly for his joint pains (10) Vitamin D deficiency: Code(s): E55.9 - Vitamin D deficiency, unspecified Category: Medical Plan: Continue Vitamin D3 2000 units QD (11) Elevated LFTs: Code(s): R79.89 - Other specified abnormal findings of blood chemistry Category: Medical Plan: His LFTs are still elevated on his recent labs and have increased slightly from previous - this is again most likely due to hepatosteatosis and related to his weight and should improve with weight loss Will recheck his LFTs in 3 months for follow up (12) Gout: Code(s): M10.9 - Gout, unspecified Category: Medical Qualifiers: Gout site: unspecified site Gout etiology: unspecified cause Chronicity: chronic Presence of tophus: without tophus Qualified Code(s): M1A.9XX0 - Chronic gout, unspecified, without tophus (tophi) Plan: Serum uric acid is still elevated at 10.3 on his recent labs; was at 8.1 when previously checked in February 2023 Reinforced low purine diet Continue Allopurinol 300 mg QD and Colchicine 0.6 mg BID PRN He was also on Indomethacin 50 mg TID PRN previously but his insurance would not cover the Rx; is currently on Naproxen PRN (13) Depression: Code(s): F32.9 - Major depressive disorder, single episode, unspecified Category: Medical Qualifiers: Depression Type: major depressive disorder Major depression recurrence: recurrent Active/Remission status: currently active Major depression episode severity: unspecified Qualified Code(s): F33.9 - Major depressive disorder, recurrent, unspecified Plan: Continue Fluoxetine 40 mg QD, Risperidone 1 mg QD and Seroquel 150 mg Q HS Follow up with psychiatry as scheduled (14) Obesity (BMI 30-39.9): Code(s): E66.9 - Obesity, unspecified Category: Medical Plan: Reinforced diet/exercise as tolerated/lose weight Plan Follow up in 3 months Orders: Orders DNA Analysis Hemochromatosis 09/18/24 R79.89 - Other specified abnormal findings of blood chemistry Comprehensive [place]. Panel Fast 3 Months E78.00 - Pure hypercholesterolemia, unspecified TSH reflex Free T4 3 Months E78.00 - Pure hypercholesterolemia, unspecified Uric Acid 3 Months M10.9 - Gout, unspecified Vitamin B12 and Folate 3 Months E53.8 - Deficiency of other specified B group vitamins Complete Blood Count Auto Diff 3 Months D64.9 - Anemia, unspecified Lipid Panel 3 Months E78.00 - Pure hypercholesterolemia, unspecified UA CC w/rflx Micro + Cult 3 Months R30.0 - Dysuria Hemoglobin A1c 3 Months R73.01 - Impaired fasting glucose Vitamin D 25-OH Total 3 Months E55.9 - Vitamin D deficiency, unspecified Medications: New meloxicam Take with food 7.5 mg PO DAILY PRN 10 tabs 0RF pain lidocaine 5% 1 appl topical QID 15 days PRN 60 grams 0RF pain Changed From fluticasone propionate 100 mcg/actuation (Flovent Diskus) 1 inh inhalation BID 60 ea 5RF To fluticasone propionate 100 mcg/actuation 1 inh inhalation BID 60 ea 5RF Refilled Ventolin HFA 90 mcg/actuation (albuterol sulfate) 2 puffs PO Q6H PRN 18 grams 2RF for wheezing NS
--- OUTSIDE RECORDS SUMMARY | 2024-09-18 12:08 | XMS_ITS | Clinical Summary ---
Author Organization [facility] Address [address] [place] [address] Phone Care Team Providers Care General Pediatrician Name Role Phone Elieser Moreno MD Primary Care Provider [phone] Allergies No known active allergies Medications allopurinoL [...] PM EST - 07/15/2024 12:[address] [facility] [address] [place] [id number] Acute gout of right foot, unspecified cause (Primary Dx) Discharge Disposition: Home or Self Care 07/01/2024 5:38 AM EST - 07/01/2024 8:[address] [facility] [address] [place] [address] Anant Church, DO Acute cough [...] K/mcL LAB HEMETOLOGY METHOD 07/14/2024 7:06 PM [facility] RBC 4.70 4.50 - 5.50 M/mcL LAB HEMETOLOGY METHOD 07/14/2024 7:06 PM [facility] Hemoglobin 14.5 13.5 - 17.5 g/dL LAB HEMETOLOGY METHOD 07/14/2024 7:06 PM [facility] Hematocrit 42.8 42.0 - 54.0 % LAB HEMETOLOGY METHOD 07/14/2024 7:06 PM [facility] MCV 91.5 79.0 - 98.0 FL LAB HEMETOLOGY METHOD 07/14/2024 7:06 PM [facility] MCH 31.0 27.0 - 32.0 pcg LAB HEMETOLOGY METHOD 07/14/2024 7:06 PM [facility] MCHC 33.9 32.0 - 37.0 g/dL LAB HEMETOLOGY METHOD 07/14/2024 7:06 PM [facility] RDW 13.4 11.0 - 15.0 % LAB HEMETOLOGY METHOD 07/14/2024 7:06 PM [facility] Platelets 230 130 - 400 K/mcL LAB HEMETOLOGY METHOD 07/14/2024 7:06 PM [facility] MPV 9.8 7.0 - 11.0 FL LAB HEMETOLOGY METHOD 07/14/2024 7:06 PM [facility] NRBC 0.0 <1.0 % LAB HEMETOLOGY METHOD 07/14/2024 7:06 PM [facility] NRBC Absolute 0.00 <0.10 K/mcL LAB HEMETOLOGY METHOD 07/14/2024 7:06 PM [facility] Neutrophils Relative 60.4 % LAB HEMETOLOGY METHOD 07/14/2024 7:06 PM [facility] Lymphocytes Relative 28.7 % LAB HEMETOLOGY METHOD 07/14/2024 7:06 PM [facility] Monocytes Relative 8.8 % LAB HEMETOLOGY METHOD 07/14/2024 7:06 PM [facility] Eosinophils Relative 1.1 % LAB HEMETOLOGY METHOD 07/14/2024 7:06 PM [facility] Basophils Relative 0.4 % LAB HEMETOLOGY METHOD 07/14/2024 7:06 PM [facility] Immature Granulocytes Relative 0.6 % LAB HEMETOLOGY METHOD 07/14/2024 7:06 PM [facility] Neutrophils Absolute 4.85 1.50 - 7.00 K/mcL LAB HEMETOLOGY METHOD 07/14/2024 7:06 PM [facility] Lymphocytes Absolute 2.31 1.00 - 5.00 K/mcL LAB HEMETOLOGY METHOD 07/14/2024 7:06 PM [facility] Monocytes Absolute 0.71 0.20 - 1.00 K/mcL LAB HEMETOLOGY METHOD 07/14/2024 7:06 PM [facility] Eosinophils Absolute 0.09 0.00 - 0.50 K/mcL LAB HEMETOLOGY METHOD 07/14/2024 7:06 PM [facility] Basophils Absolute 0.03 0.00 - 0.20 K/mcL LAB HEMETOLOGY METHOD 07/14/2024 7:06 PM [facility] Immature Granulocytes Absolute 0.05(H) 0.00 - 0.03 K/mcL LAB HEMETOLOGY METHOD 07/14/2024 7:06 PM [facility] Blood Venous blood specimen / Unknown Venipuncture / Unknown 07/14/2024 6:36 PM EST 07/14/2024 6:58 PM EST us Brian B Anguiano MD LAB BLOOD ORDERABLES Final Resu lt Performing Organization Address City/[facility]/ZIP Co de Phone Number [facility] [address] [place] [address], [place] [phone] * Uric acid (07/14/2024 6:36 PM EST) Uric Acid 8.7 3.7 - 9.2 mg/dL LAB CHEMISTRY METHOD 07/14/2024 7:[address] [facility] Blood Venous blood specimen / Unknown Venipuncture / Unknown 07/14/2024 6:36 PM EST 07/14/2024 6:58 PM EST [facility] Araon Anguiano MD LAB BLOOD ORDERABLES Final Resu lt Performing Organization Address [facility]/ZIP Co de Phone Number [facility] [address] [place] [address], [place] [phone] * (ABNORMAL) Basic metabolic panel (07/14/2024 6:36 PM EST) Sodium 140 133 - 145 mmol/L LAB CHEMISTRY METHOD 07/14/2024 7:25 PM [facility] Potassium 3.7 3.5 - 5.5 mmol/L LAB CHEMISTRY METHOD 07/14/2024 7:25 PM [facility] Chloride 104 96 - 110 mmol/L LAB CHEMISTRY METHOD 07/14/2024 7:25 PM [facility] CO2 29 21 - 32 mmol/L LAB CHEMISTRY METHOD 07/14/2024 7:25 PM [facility] Anion Gap 7 3 - 11 LAB CHEMISTRY METHOD 07/14/2024 7:25 PM [facility] Glucose 131(H) 70 - 100 mg/dL LAB CHEMISTRY METHOD 07/14/2024 7:25 PM [facility] BUN 16 5 - 25 [...] Resu lt [facility] [address] [place] [address], * XR Foot 3+ Views Right (07/14/2024 6:25 PM EST) Anatomical Region Laterality Modality Lower Extremities, Foot Right Radiogra phic Imaging 07/15/2024 8:16 AM EST Impressions 07/15/2024 8:17 AM EST Impression: 1. No acute osseous abnormality identified. 2. 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 Telerad JOLENE ([id number]) -------- FINAL REPORT -------- Dictated By: Zayda Baker Dictated Date: 07/15/2024 08:16 ET Assigned Physician: Zayda Baker Reviewed and Electronically Signed By: Zayda Baker Signed Date: 07/15/2024 08:17 ET Workstation ID: [id number] Transcribed By: Self Edit Transcribed Date: 07/15/2024 [...] great toe and tibiotalar joint. Tori FERNÁNDEZ ([id number]) -------- FINAL REPORT -------- Dictated By: Zayda Baker Dictated Date: 07/15/2024 08:16 ET Assigned Physician: Zayad Baker Reviewed and Electronically Signed By: Zayda Baker Signed Date: 07/15/2024 08:17 ET Workstation ID: [id number] Transcribed By: Self Edit Transcribed Date: 07/15/2024 [...] Signed Date: 07/01/2024 08:33 ET Workstation ID: [id number] Transcribed By: Self Edit Transcribed Date: 07/01/2024 [...] Spencer Reviewed and Electronically Signed By: Loi Spenecr Signed Date: 07/01/2024 08:33 ET Workstation ID: [id number] Transcribed By: Self Edit Transcribed Date: 07/01/2024 08:33 ET us Terry Montanez MD IMG XR PROCEDURES Final R esult * (ABNORMAL) POCT Glucose, blood (06/30/2024 6:32 PM EST) [facility] Glucose POCT 126(H) 70 - 100 mg/dL 06/30/2024 6:[address] [facility] Blood Capillary blood specimen / Unknown 06/30/2024 6:32 PM EST 06/30/2024 6:35 PM EST Generic Provider Poct LAB POINT OF CARE TEST DOCKED DEVICE UNSOLICITED RESULTS Final Result Performing Organization Address City/[facility]/ZIP Co de Phone Number [facility] [address] [place] [address], * Troponin I high sensitivity (06/30/2024 3:15 PM EST) Only the most recent of2 resultswithin the time period is included. [facility] High Sensitivity Troponin I 5 <=79 ng/L [...] l Result [facility] [address] [place] [address], [place] [phone] * ECG 12 lead (06/30/2024 3:13 PM EST) Only the most recent of2 resultswithin the time period is included. [facility] Ventricular Rate ECG 102 BPM GEMUSE Atrial Rate 102 BPM GEMUSE P-R Interval 152 ms GEMUSE QRS Duration 86 ms GEMUSE Q-T Interval 366 ms GEMUSE QTc 477 ms GEMUSE P Wave [place] 40 degrees GEMUSE R [place] 6 degrees GEMUSE T [place] 25 degrees GEMUSE ECG Interpretation Sinus tachycardia Minimal voltage criteria for LVH, may be normal variant Borderline ECG When compared with ECG of 30-JUN-2024 13:17, (unconfirmed) No significant change was found Confirmed by Mango FERGUSON JOHN ([id number]) on 06/30/2024 10:27:16 PM GEMUSE 06/30/2024 3:13 PM EST 06/30/2024 10:27 PM EST Terry Montanez MD ECG ORDERABLES Final Res ult Performing Organization Address [facility]/ZIP Co de Phone Number GEMUSE * B-type natriuretic peptide (06/30/2024 1:19 PM EST) BNP 2 <=100 pcg/mL LAB CHEMISTRY METHOD 06/30/2024 2:[address] [facility] Blood Venous blood specimen / Unknown Venipuncture / Unknown 06/30/2024 1:19 PM EST 06/30/2024 1:57 PM EST Terry Montanez MD LAB BLOOD ORDERABLES Aide l Result Performing Organization Address [facility]/ZIP Co de Phone Number [facility] [address] [place] [address], * (ABNORMAL) Magnesium (06/30/2024 1:19 PM EST) Magnesium 1.8(L) 1.9 - 2.6 mg/dL LAB CHEMISTRY METHOD 06/30/2024 2:[address] [facility] Blood Venous blood specimen / Unknown Venipuncture / Unknown 06/30/2024 1:19 PM EST 06/30/2024 1:58 PM EST us Terry Montanez MD LAB BLOOD ORDERABLES Aide l Result [facility] [address] [place] [address], [place] [phone] * Lipase (06/30/2024 1:19 PM EST) Pathologist [facility] Lipase 50 13 - 75 unit/L LAB CHEMISTRY METHOD 06/30/2024 2:40 PM [facility] Blood Venous blood specimen / Unknown Venipuncture / Unknown 06/30/2024 1:19 PM EST 06/30/2024 1:58 PM EST us Terry Montanez MD LAB BLOOD ORDERABLES Aide l Result Performing Organization Address [facility]/ZIP Co de Phone Number [facility] [address] [place] [address], [place] [phone] * (ABNORMAL) Comprehensive metabolic panel (06/30/2024 1:19 PM EST) [facility] Sodium 138 133 - 145 mmol/L LAB CHEMISTRY METHOD 06/30/2024 2:40 PM [facility] Potassium 4.4 3.5 - 5.5 mmol/L LAB CHEMISTRY METHOD 06/30/2024 2:40 PM [facility] Chloride 104 96 - 110 mmol/L LAB CHEMISTRY METHOD 06/30/2024 2:40 PM [facility] CO2 29 21 - 32 mmol/L LAB CHEMISTRY METHOD 06/30/2024 2:40 PM [facility] Anion Gap 5 3 - 11 LAB CHEMISTRY METHOD 06/30/2024 2:40 PM [facility] Glucose 165(H) 70 - 100 mg/dL LAB CHEMISTRY METHOD 06/30/2024 2:40 PM [facility] BUN 18 5 - 25 mg/dL LAB CHEMISTRY METHOD 06/30/2024 2:40 PM [facility] Creatinine 1.39(H) 0.70 - 1.30 mg/dL LAB CHEMISTRY METHOD 06/30/2024 2:40 PM [facility] eGFR 65 >=60 mL/min/1. 73m2 LAB CHEMISTRY METHOD 06/30/2024 2:40 PM [facility] Comment:Calculation based on the??Chronic Kidney Disease Epidemiology Collaboration (CKD-EPI) equation refit??without adjustment for race. BUN/Creatinine Ratio 12.9 LAB CHEMISTRY METHOD 06/30/2024 2:40 PM [facility] Calcium 10.0 8.5 - 10.5 mg/dL LAB CHEMISTRY METHOD 06/30/2024 2:40 PM [facility] AST (SGOT) 91(H) 10 - 42 unit/L LAB CHEMISTRY METHOD 06/30/2024 2:40 PM [facility] ALT (SGPT) 190(H) 10 - 60 unit/L LAB CHEMISTRY METHOD 06/30/2024 2:40 PM [facility] Alkaline Phosphatase 84 42 - 121 unit/L LAB CHEMISTRY METHOD 06/30/2024 2:40 PM [facility] Total Protein 7.5 6.0 - 8.0 g/dL LAB CHEMISTRY METHOD 06/30/2024 2:40 PM [facility] Albumin 4.1 3.2 - 5.0 g/dL LAB CHEMISTRY METHOD 06/30/2024 2:40 PM [facility] Total Bilirubin 0.8 0.0 - 1.4 mg/dL LAB CHEMISTRY METHOD 06/30/2024 2:40 PM [facility] Blood Venous blood specimen / Unknown Venipuncture / Unknown 06/30/2024 1:19 PM EST 06/30/2024 1:58 PM EST us Terry Montanez MD LAB BLOOD ORDERABLES Aide child Result [facility] [address] [place] [address], from Last 3 Months Insurance [place] - [place] Member Subscriber Plan / Payer (Ef fective 2024-Present) Name:Adam Montesinos Relation to Subscriber:Self Name:Adam Montesinos Payer ID:[id number] Group ID:Not on file Type:Not on file Address: [facility] ATTN:CLAIMS [address] [place], [place] MEDICARE [place] - [place] Care Teams General Pediatrician Relationship Specialty Start Date End Date Elieser Moreno MD [address] [facility] [address] JUANA Bunch PCP - General Internal Medicine 05/13/24
== END 2024-09-18 12:14 | disposition home or self-care (01) ==
LOC: HO.HMCH 10:55
PROVIDERS: PCP Internal Medicine; Visit Provider Internal Medicine
DX: E11.9 Type 2 diabetes mellitus without complications (principal); E78.2 Mixed hyperlipidemia; I10 Essential (primary) hypertension; J45.20 Mild intermittent asthma, uncomplicated; R79.0 Abnormal level of blood mineral; R07.89 Other chest pain; K59.04 Chronic idiopathic constipation; M51.362 Other intervertebral disc degeneration, lumbar region with discogenic back pain and lower extremity pain; M16.32 Unilateral osteoarthritis resulting from hip dysplasia, left hip; E55.9 Vitamin D deficiency, unspecified; R79.89 Other specified abnormal findings of blood chemistry; F33.9 Major depressive disorder, recurrent, unspecified; M1A.9XX0 Chronic gout, unspecified, without tophus (tophi); E66.9 Obesity, unspecified

== ENCOUNTER → 2024-09-18 10:54 | Outpatient (BNVA) | payer MEDICARE, MEDICAID, SELFPAY | PROVIDERS: PCP Internal Medicine; Visit Provider Internal Medicine | DX: R07.89 Other chest pain (principal); E11.9 Type 2 diabetes mellitus without complications; E78.2 Mixed hyperlipidemia; I10 Essential (primary) hypertension; J45.20 Mild intermittent asthma, uncomplicated; R79.0 Abnormal level of blood mineral; K59.04 Chronic idiopathic constipation; M51.362 Other intervertebral disc degeneration, lumbar region with discogenic back pain and lower extremity pain; M16.32 Unilateral osteoarthritis resulting from hip dysplasia, left hip; E55.9 Vitamin D deficiency, unspecified; R79.89 Other specified abnormal findings of blood chemistry; M1A.9XX0 Chronic gout, unspecified, without tophus (tophi); F33.9 Major depressive disorder, recurrent, unspecified; E66.9 Obesity, unspecified; E78.00 Pure hypercholesterolemia, unspecified; D64.9 Anemia, unspecified; R30.0 Dysuria; Z68.32 Body mass index [BMI] 32.0-32.9, adult | CPT/HCPCS: 96127; 99212 ==

== ENCOUNTER 2024-09-20 09:12 | Outpatient (REF) | payer MEDICARE, MEDICAID, SELFPAY ==
--- OUTSIDE RECORDS SUMMARY | 2024-09-20 09:15 | XMS_ITS | Clinical Summary ---
Author Organization [facility] Address [address] [place] [address] Phone Care Team Providers Care L[employer] Name Role Phone Elieser Moreno MD Primary Care Provider [phone] Allergies No known active allergies Medications allopurinoL [...] PM EST - 07/15/2024 12:15 AM EST [facility] Emergency [address] [place] [id number] Acute gout of right foot, unspecified cause (Primary Dx) Discharge Disposition: Home or Self Care 07/01/2024 5:38 AM EST - 07/01/2024 8:29 AM EST [facility] Emergency [address] [place] [address] Anant Church, DO Acute cough [...] K/mcL LAB HEMETOLOGY METHOD 07/14/2024 7:06 PM [facility] RBC 4.70 4.50 - 5.50 M/mcL LAB HEMETOLOGY METHOD 07/14/2024 7:06 PM [facility] Hemoglobin 14.5 13.5 - 17.5 g/dL LAB HEMETOLOGY METHOD 07/14/2024 7:06 PM [facility] Hematocrit 42.8 42.0 - 54.0 % LAB HEMETOLOGY METHOD 07/14/2024 7:06 PM [facility] MCV 91.5 79.0 - 98.0 FL LAB HEMETOLOGY METHOD 07/14/2024 7:06 PM [facility] MCH 31.0 27.0 - 32.0 pcg LAB HEMETOLOGY METHOD 07/14/2024 7:06 PM [facility] MCHC 33.9 32.0 - 37.0 g/dL LAB HEMETOLOGY METHOD 07/14/2024 7:06 PM [facility] RDW 13.4 11.0 - 15.0 % LAB HEMETOLOGY METHOD 07/14/2024 7:06 PM [facility] Platelets 230 130 - 400 K/mcL LAB HEMETOLOGY METHOD 07/14/2024 7:06 PM [facility] MPV 9.8 7.0 - 11.0 FL LAB HEMETOLOGY METHOD 07/14/2024 7:06 PM [facility] NRBC 0.0 <1.0 % LAB HEMETOLOGY METHOD 07/14/2024 7:06 PM [facility] NRBC Absolute 0.00 <0.10 K/mcL LAB HEMETOLOGY METHOD 07/14/2024 7:06 PM [facility] Neutrophils Relative 60.4 % LAB HEMETOLOGY METHOD 07/14/2024 7:06 PM [facility] Lymphocytes Relative 28.7 % LAB HEMETOLOGY METHOD 07/14/2024 7:06 PM [facility] Monocytes Relative 8.8 % LAB HEMETOLOGY METHOD 07/14/2024 7:06 PM [facility] Eosinophils Relative 1.1 % LAB HEMETOLOGY METHOD 07/14/2024 7:06 PM [facility] Basophils Relative 0.4 % LAB HEMETOLOGY METHOD 07/14/2024 7:06 PM [facility] Immature Granulocytes Relative 0.6 % LAB HEMETOLOGY METHOD 07/14/2024 7:06 PM [facility] Neutrophils Absolute 4.85 1.50 - 7.00 K/mcL LAB HEMETOLOGY METHOD 07/14/2024 7:06 PM [facility] Lymphocytes Absolute 2.31 1.00 - 5.00 K/mcL LAB HEMETOLOGY METHOD 07/14/2024 7:06 PM [facility] Monocytes Absolute 0.71 0.20 - 1.00 K/mcL LAB HEMETOLOGY METHOD 07/14/2024 7:06 PM [facility] Eosinophils Absolute 0.09 0.00 - 0.50 K/mcL LAB HEMETOLOGY METHOD 07/14/2024 7:06 PM [facility] Basophils Absolute 0.03 0.00 - 0.20 K/mcL LAB HEMETOLOGY METHOD 07/14/2024 7:06 PM [facility] Immature Granulocytes Absolute 0.05(H) 0.00 - 0.03 K/mcL LAB HEMETOLOGY METHOD 07/14/2024 7:06 PM [facility] Blood Venous blood specimen / Unknown Venipuncture / Unknown 07/14/2024 6:36 PM EST 07/14/2024 6:58 PM EST us Brian B Anguiano MD LAB BLOOD ORDERABLES Final Resu lt Performing Organization Address City/[facility]/ZIP Co de Phone Number [facility] [address] [place] [address], [place] [phone] * Uric acid (07/14/2024 6:36 PM EST) Uric Acid 8.7 3.7 - 9.2 mg/dL LAB CHEMISTRY METHOD 07/14/2024 7:25 PM EST [facility] Blood Venous blood specimen / Unknown Venipuncture / Unknown 07/14/2024 6:36 PM EST 07/14/2024 6:58 PM EST [facility] Aaron nAguiano MD LAB BLOOD ORDERABLES Final Resu lt Performing Organization Address [facility]/ZIP Co de Phone Number [facility] [address] [place] [address], [place] [phone] * (ABNORMAL) Basic metabolic panel (07/14/2024 6:36 PM EST) Sodium 140 133 - 145 mmol/L LAB CHEMISTRY METHOD 07/14/2024 7:25 PM [facility] Potassium 3.7 3.5 - 5.5 mmol/L LAB CHEMISTRY METHOD 07/14/2024 7:25 PM [facility] Chloride 104 96 - 110 mmol/L LAB CHEMISTRY METHOD 07/14/2024 7:25 PM [facility] CO2 29 21 - 32 mmol/L LAB CHEMISTRY METHOD 07/14/2024 7:25 PM [facility] Anion Gap 7 3 - 11 LAB CHEMISTRY METHOD 07/14/2024 7:25 PM [facility] Glucose 131(H) 70 - 100 mg/dL LAB CHEMISTRY METHOD 07/14/2024 7:25 PM [facility] BUN 16 5 - 25 mg/dL LAB CHEMISTRY METHOD 07/14/2024 7:25 PM EST [facility] Creatinine 0.89 0.70 - 1.30 mg/dL LAB CHEMISTRY METHOD 07/14/2024 7:25 PM EST [facility] eGFR 110 >=60 mL/min/1. 73m2 LAB CHEMISTRY METHOD 07/14/2024 7:25 PM EST [facility] Comment:Calculation based on the??Chronic Kidney Disease Epidemiology Collaboration (CKD-EPI) equation refit??without adjustment for race. BUN/Creatinine Ratio 18.0 LAB CHEMISTRY METHOD 07/14/2024 7:25 PM EST [facility] Calcium 9.7 8.5 - 10.5 mg/dL LAB CHEMISTRY METHOD 07/14/2024 7:25 PM EST [facility] Blood Venous blood specimen / Unknown Venipuncture / Unknown 07/14/2024 6:36 PM EST 07/14/2024 6:58 PM EST Brian Anguiano MD LAB BLOOD ORDERABLES Final Resu lt [facility] [address] [place] [address], * XR Foot 3+ Views Right (07/14/2024 6:25 PM EST) Anatomical Region Laterality Modality Lower Extremities, Foot Right Radiogra phic Imaging 07/15/2024 8:16 AM EST Impressions 07/15/2024 8:17 AM EST Impression: 1. No acute osseous abnormality identified. 2. 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 Telerad JOLENE ([id number]) -------- FINAL REPORT -------- Dictated By: Zayda Baker Dictated Date: 07/15/2024 08:16 ET Assigned Physician: Zayda Baker Reviewed and Electronically Signed By: Zayda Baker Signed Date: 07/15/2024 08:17 ET Workstation ID: [id number] Transcribed By: Self Edit Transcribed Date: 07/15/2024 [...] great toe and tibiotalar joint. Tori FERNÁNDEZ ([id number]) -------- FINAL REPORT -------- Dictated By: Zayda Baker Dictated Date: 07/15/2024 08:16 ET Assigned Physician: Zayda Baker Reviewed and Electronically Signed By: Zayda Baker Signed Date: 07/15/2024 08:17 ET Workstation ID: [id number] Transcribed By: Self Edit Transcribed Date: 07/15/2024 [...] Signed Date: 07/01/2024 08:33 ET Workstation ID: [id number] Transcribed By: Self Edit Transcribed Date: 07/01/2024 [...] Signed Date: 07/01/2024 08:33 ET Workstation ID: [id number] Transcribed By: Self Edit Transcribed Date: 07/01/2024 08:33 ET us Terry Montanez MD IMG XR PROCEDURES Final R esult * (ABNORMAL) POCT Glucose, blood (06/30/2024 6:32 PM EST) [facility] Glucose POCT 126(H) 70 - 100 mg/dL 06/30/2024 6:33 PM EST [facility] Blood Capillary blood specimen / Unknown 06/30/2024 6:32 PM EST 06/30/2024 6:35 PM EST Generic Provider Poct LAB POINT OF CARE TEST DOCKED DEVICE UNSOLICITED RESULTS Final Result Performing Organization Address City/[facility]/ZIP Co de Phone Number [facility] [address] [place] [address], * Troponin I high sensitivity (06/30/2024 3:15 PM EST) Only the most recent of2 resultswithin the time period is included. [facility] High Sensitivity Troponin I 5 <=79 ng/L LAB CHEMISTRY METHOD 06/30/2024 4:31 PM EST [facility] Blood Venous blood specimen / Unknown Venipuncture / Unknown 06/30/2024 3:15 PM EST 06/30/2024 3:54 PM EST Narrative [facility] - 06/30/2024 4:31 PM EST High levels of biotin in samples may falsely decrease hsTroponin values. ??Use caution when interpreting hsTroponin results in patients taking biotin who exhibit renal impairment (eGFR <60) or in patients taking more than 20 mg/day of biotin. Terry Montanez MD LAB BLOOD ORDERABLES Aide l Result [facility] [address] [place] [address], [place] [phone] * ECG 12 lead (06/30/2024 3:13 PM EST) Only the most recent of2 resultswithin the time period is included. [facility] Ventricular Rate ECG 102 BPM GEMUSE Atrial Rate 102 BPM GEM[facility] P-R Interval 152 ms GEMUSE QRS Duration 86 ms GEMUSE Q-T Interval 366 ms GEMUSE QTc 477 ms GEMUSE P Wave Tensed 40 degrees GEMUSE R Tensed 6 degrees GEMUSE T Tensed 25 degrees GEMUSE ECG Interpretation Sinus tachycardia Minimal voltage criteria for LVH, may be normal variant Borderline ECG When compared with ECG of 30-JUN-2024 13:17, (unconfirmed) No significant change was found Confirmed by Mango FERGUSON JOHN ([id number]) on 06/30/2024 10:27:16 PM GEMUSE 06/30/2024 3:13 PM EST 06/30/2024 10:27 PM EST Terry Montanez MD ECG ORDERABLES Final Res ult Performing Organization Address [facility]/ZIP Co de Phone Number GEMUSE * B-type natriuretic peptide (06/30/2024 1:19 PM EST) BNP 2 <=100 pcg/mL LAB CHEMISTRY METHOD 06/30/2024 2:39 PM EST [facility] Blood Venous blood specimen / Unknown Venipuncture / Unknown 06/30/2024 1:19 PM EST 06/30/2024 1:57 PM EST Terry Montanez MD LAB BLOOD ORDERABLES Aide l Result Performing Organization Address [facility]/ZIP Co de Phone Number [facility] [address] [place] [address], * (ABNORMAL) Magnesium (06/30/2024 1:19 PM EST) Magnesium 1.8(L) 1.9 - 2.6 mg/dL LAB CHEMISTRY METHOD 06/30/2024 2:40 PM EST [facility] Blood Venous blood specimen / Unknown Venipuncture / Unknown 06/30/2024 1:19 PM EST 06/30/2024 1:58 PM EST us Terry Montanez MD LAB BLOOD ORDERABLES Aide l Result [facility] [address] [place] [address], [place] [phone] * Lipase (06/30/2024 1:19 PM EST) Pathologist [facility] Lipase 50 13 - 75 unit/L LAB CHEMISTRY METHOD 06/30/2024 2:40 PM [facility] Blood Venous blood specimen / Unknown Venipuncture / Unknown 06/30/2024 1:19 PM EST 06/30/2024 1:58 PM EST us Terry Montanez MD LAB BLOOD ORDERABLES Aide l Result Performing Organization Address [facility]/ZIP Co de Phone Number [facility] [address] [place] [address], [place] [phone] * (ABNORMAL) Comprehensive metabolic panel (06/30/2024 1:19 PM EST) [facility] Sodium 138 133 - 145 mmol/L LAB CHEMISTRY METHOD 06/30/2024 2:40 PM [facility] Potassium 4.4 3.5 - 5.5 mmol/L LAB CHEMISTRY METHOD 06/30/2024 2:40 PM [facility] Chloride 104 96 - 110 mmol/L LAB CHEMISTRY METHOD 06/30/2024 2:40 PM [facility] CO2 29 21 - 32 mmol/L LAB CHEMISTRY METHOD 06/30/2024 2:40 PM [facility] Anion Gap 5 3 - 11 LAB CHEMISTRY METHOD 06/30/2024 2:40 PM [facility] Glucose 165(H) 70 - 100 mg/dL LAB CHEMISTRY METHOD 06/30/2024 2:40 PM [facility] BUN 18 5 - 25 mg/dL LAB CHEMISTRY METHOD 06/30/2024 2:40 PM [facility] Creatinine 1.39(H) 0.70 - 1.30 mg/dL LAB CHEMISTRY METHOD 06/30/2024 2:40 PM [facility] eGFR 65 >=60 mL/min/1. 73m2 LAB CHEMISTRY METHOD 06/30/2024 2:40 PM [facility] Comment:Calculation based on the??Chronic Kidney Disease Epidemiology Collaboration (CKD-EPI) equation refit??without adjustment for race. BUN/Creatinine Ratio 12.9 LAB CHEMISTRY METHOD 06/30/2024 2:40 PM [facility] Calcium 10.0 8.5 - 10.5 mg/dL LAB CHEMISTRY METHOD 06/30/2024 2:40 PM [facility] AST (SGOT) 91(H) 10 - 42 unit/L LAB CHEMISTRY METHOD 06/30/2024 2:40 PM [facility] ALT (SGPT) 190(H) 10 - 60 unit/L LAB CHEMISTRY METHOD 06/30/2024 2:40 PM [facility] Alkaline Phosphatase 84 42 - 121 unit/L LAB CHEMISTRY METHOD 06/30/2024 2:40 PM [facility] Total Protein 7.5 6.0 - 8.0 g/dL LAB CHEMISTRY METHOD 06/30/2024 2:40 PM [facility] Albumin 4.1 3.2 - 5.0 g/dL LAB CHEMISTRY METHOD 06/30/2024 2:40 PM [facility] Total Bilirubin 0.8 0.0 - 1.4 mg/dL LAB CHEMISTRY METHOD 06/30/2024 2:40 PM [facility] Blood Venous blood specimen / Unknown Venipuncture / Unknown 06/30/2024 1:19 PM EST 06/30/2024 1:58 PM EST us Terry Montanez MD LAB BLOOD ORDERABLES Aide child Result [facility] [address] [place] [address], from Last 3 Months Insurance [place] - [place] Member Subscriber Plan / Payer (Ef fective 2024-Present) Name:Adam Montesinos Relation to Subscriber:Self Name:Adam Montesinos Payer ID:[id number] Group ID:Not on file Type:Not on file Address: [facility] ATTN:CLAIM[employer] [address] [place], [place] MEDICARE [place] Care Teams [employer] Relationship Specialty Start Date End Date Elieser Moreno MD [address] [facility] [address] JUANA Bunch PCP - General Internal Medicine 05/13/24
== END 2024-09-20 09:13 | disposition home or self-care (01) ==
LOC: HO.LAB 09:12
PROVIDERS: PCP Internal Medicine; Visit Provider Internal Medicine
DX: R79.89 Other specified abnormal findings of blood chemistry (principal)
CPT/HCPCS: 36415; 81256

== ENCOUNTER 2024-10-02 07:04 | Outpatient (REF) | payer MEDICARE, MEDICAID, SELFPAY ==
[2024-10-02 08:13] LABS: Iron 84 mcg/dL (45-160); Percent Iron Saturation 27 % (15-50); Total Iron Binding Capacity 308 mcg/dL (228-428); Unsaturated Iron Binding 224 ug/dL
[2024-10-02 08:27] LABS: Ferritin 576 ng/mL (20-250)
== END 2024-10-02 07:05 | disposition home or self-care (01) ==
LOC: HO.LAB 07:04
PROVIDERS: PCP Internal Medicine; Visit Provider Internal Medicine
DX: E83.19 Other disorders of iron metabolism (principal); R79.89 Other specified abnormal findings of blood chemistry
CPT/HCPCS: 36415; 81256; 82728; 83540

== ENCOUNTER 2025-01-20 11:37 | Outpatient (REF) | payer MEDICARE, MEDICAID, SELFPAY ==
[2025-01-20 11:54] LABS: MANUAL DIFF FLAG NO
[2025-01-20 12:11] LABS: Hematocrit 40.3 % (42.0-52.0); Hemoglobin 13.9 g/dl (14.0-18.0); Imm Gran Abs Auto 0.05 X10*3/uL (0.00-0.03); Imm Gran Pct Auto 0.8 % (0.0-0.4); Lymphocytes Absolute Auto 2.7 X10*3/uL (1.2-4.9); Mean Corpuscular HGB Conc 34.5 g/dl (31.0-36.0); Mean Corpuscular Hemoglobin 31.4 pg (27.0-33.0); Mean Corpuscular Volume 91.2 fL (80.0-98.0); NRBC Abs Auto 0.000 X10*3/uL (0.0-0.012); NRBC Pct Auto 0.0 /100WBC (0.0-0.2); Platelet Count 181 X10*3/uL (160-400); Red Blood Count 4.42 X10*6/uL (4.60-5.80); White Blood Count 6.4 X10*3/uL (4.8-10.8)
[2025-01-20 12:14] LABS: Appearance Urine Clear; Glucose Urine UA Negative (Negative); PH 5.5 (5.0-9.0); Specific Gravity - Urine 1.025 (1.005-1.025)
[2025-01-20 12:16] LABS: Hemoglobin A1C 177.4914 umol/L; Total Hemoglobin (HGBA1C) 3628.4913 umol/L
--- OUTSIDE RECORDS SUMMARY | 2025-01-20 12:29 | XMS_ITS | Clinical Summary ---
Author Organization [facility] Address [address] [place] [address] Phone Care Team Providers Care Health And Wellness Sales Consultant Name Role Phone Elieser Moreno MD Primary Care Provider [phone] Allergies No known active allergies Medications allopurinoL [...] Active Active Problems No known active problems Medical History Medical History Date Comments Hypertension [...] 112 07/14/2024 10:16 PM EST Temperature 36.4 C (97.5 F) 07/14/2024 10:16 PM EST Respiratory Rate 18 07/14/2024 10:16 PM EST [...] 5 Years) and At-Risk Patients (6 to 49 Years) (2 of 2 - PCV) 03/15/2018 03/15/2017 COVID-19 Vaccine ( season) 2024 06/04/2021, 09/30/2020, 09/02/2020 Cholesterol Screening (Lipid Panel) 03/27/2024 HIV Screening 03/27/2024 Hepatitis C Screening 03/27/2024 Medicare Annual Wellness Visit 03/27/2024 Social Influencers of Health Screening 03/27/2024 Depression Screening 06/18/2024 Influenza Vaccine (#1) 2025 , 04/20/2020, 04/11/2019, Additional history exists Hypertension/CHF/CAD Annual BMP Blood Test 07/14/2025 07/14/2024, [...] age to complete this topic Meningococcal B Vaccine Aged Out No l onger eligible based on patient's age to complete this topic RSV Immunization Patients Under 20 months Aged Out No longer eligible based on patient's age to complete this topic Varicella Vaccines Aged Out No longer eligible based on patient's age to complete this topic Procedures Procedure Name Priority Date/Time Associated Diagnosis Comments BASIC METABOLIC PANEL STAT 07/14/2024 6:36 PM EST from Last 3 Months or Most Recently Relevant to Health Maintenance Results * (ABNORMAL) Basic metabolic panel (07/14/2024 6:36 PM EST) Sodium 140 133 - 145 mmol/L LAB CHEMISTRY METHOD 07/14/2024 7:25 PM EST [facility] Potassium 3.7 3.5 - 5.5 mmol/L LAB CHEMISTRY METHOD 07/14/2024 7:25 PM EST [facility] Chloride 104 96 - 110 mmol/L LAB CHEMISTRY METHOD 07/14/2024 7:25 PM EST [facility] CO2 29 21 - 32 mmol/L LAB CHEMISTRY METHOD 07/14/2024 7:25 PM EST [facility] Anion Gap 7 3 - 11 LAB CHEMISTRY METHOD 07/14/2024 7:25 PM EST [facility] Glucose 131(H) 70 - 100 mg/dL LAB CHEMISTRY METHOD 07/14/2024 7:25 PM [facility] BUN 16 5 - 25 mg/dL LAB CHEMISTRY METHOD 07/14/2024 7:25 PM [facility] Creatinine 0.89 0.70 - 1.30 mg/dL LAB CHEMISTRY METHOD 07/14/2024 7:25 PM [facility] eGFR 110 >=60 mL/min/1. 73m2 LAB CHEMISTRY METHOD 07/14/2024 7:25 PM [facility] Comment:Calculation based on the Chronic Kidney Disease Epidemiology Collaboration (CKD-EPI) equation refit without adjustment for race. BUN/Creatinine Ratio 18.0 LAB CHEMISTRY METHOD 07/14/2024 7:25 PM [facility] Calcium 9.7 8.5 - 10.5 mg/dL LAB CHEMISTRY METHOD 07/14/2024 7:25 PM [facility] Blood Venous blood specimen / Unknown Venipuncture / Unknown 07/14/2024 6:36 PM EST 07/14/2024 6:58 PM EST Brian Aaron Anguiano MD LAB BLOOD ORDERABLES Final Resu lt [facility] [address] [place] [address], from Last 3 Months or Most Recently Relevant to Health Maintenance Insurance [place] Care Teams Health And Wellness Sales Consultant Relationship Specialty Start Date End Date Elieser Moreno MD [address] [place] [address] [place] [address] [place] [address] [place] PCP - General Internal Medicine 05/13/24
--- OUTSIDE RECORDS SUMMARY | 2025-01-20 12:29 | XMS_ITS | Clinical Summary ---
Author Organization [facility] Address [address] [place] [id number] Phone Care Team Providers Care Registered Nurse Supervisor Name Role Phone Suly Tyson MD Unavailable [phone] Elieser Moreno MD Primary Care Provider [phone] Allergies No known active allergies Medications allopurinol (ZYLOPRIM) 300 MG tabletIndicatio ns:Retinitis pigmentosa,Macu lar atrophy, retinal,Visual field defect Take 1 tablet by mouth every morning. 4 Active amantadine HCl (SYMMETREL) 100 mg capsuleIndicati ons:Retinitis pigmentosa,Macu lar atrophy, retinal,Visual field defect Take 1 capsule by mouth every morning. 4 Active colchicine (COLCRYS) 0.6 mg tabletIndicatio ns:Retinitis pigmentosa,Macu lar atrophy, retinal,Visual field defect Take 1 tablet by mouth 2 (two) times a day. 4 Active FLUoxetine (PROZAC) 20 MG capsuleIndicati ons:Retinitis pigmentosa,Macu lar atrophy, retinal,Visual field defect Take 1 capsule by mouth every morning. 4 Active lisinopril (PRINIVIL,ZESTR IL) 20 MG tabletIndicatio ns:Retinitis pigmentosa,Macu lar atrophy, retinal,Visual field defect Take 1 tablet by mouth every morning. 4 Active meloxicam (MOBIC) 15 MG tabletIndicatio ns:Retinitis pigmentosa,Macu lar atrophy, retinal,Visual field defect TAKE 1 TABLET BY MOUTH ONCE A DAY ONLY IF NEEDED FOR PAIN FROM GOUT FLARE UP. TAKE WITH FOOD 4 Active predniSONE (DELTASONE) 20 MG tabletIndicatio ns:Retinitis pigmentosa,Macu lar atrophy, retinal,Visual field defect TAKE 2 TABLETS BY MOUTH DAILY. START THIS MEDICATION ON 12/20/2023 4 Active QUEtiapine (SEROQUEL) 100 MG tabletIndicatio ns:Retinitis pigmentosa,Macu lar atrophy, retinal,Visual field defect Take 100 mg by mouth nightly at bedtime. 4 Active traMADoL (ULTRAM) 50 mg tabletIndicatio ns:Retinitis pigmentosa,Macu lar atrophy, retinal,Visual field defect TAKE 1 TABLET BY MOUTH EVERY 6 TO 8 HOURS NEEDED FOR SEVERE PAIN 4 Active Social History Tobacco Use Types Packs/Day Years Used Date Smoking Tobacco: Never Smokeless Tobacco: Never Tobacco Cessation:Counseling Given: Not Answered Education Answer Date Recorded Are you interested in more education? Not on deandra e 03/27/2023 Are you concerned about learning? Not on file 03/27/2023 No 03/27/2023 No 03/27/2023 Digital Access Answer Date Recorded No 03/27/2023 No 03/27/2023 Reliable internet access at home? Not on file 03/27/2023 Device with a working camera? Not on file Sex and Gender Information Value Date Recorded Sex Assigned at Not on file Legal Sex Male 2:19 PM EDT Gender Identity Not on file Sexual Orientation Not on file Plan of Treatment Upcoming Encounters Date Type Department Care Team (Late st Contact Info) Description 03/01/2026 10:30 AM EDT Office Visit [facility] [address] [facility] [address]rd [place] [address] Benjamin Coles MD, PhD [address] [place] [address] [email or web address] Health Maintenance Due Date Last Done Comments Adult Td,Tdap Booster 1982 CREATININE LEVEL 1982 LIPID PANEL 1982 POTASSIUM LEVEL 1982 DEPRESSION SCREENING 1994 HEPATITIS C SCREENING 2000 HIV ONE-TIME SCREENING (18-6 5 YEARS) 2000 SMOKING STATUS SCREENING (On ce After 26 Yrs) 2008 COVID-19 VACCINE (2023-2 5 season) 2024 HEPATITIS A VACCINES Aged Out No long er eligible based on patient's age to complete this topic HIB VACCINES Aged Out No longer eligi ble based on patient's age to complete this topic MENINGOCOCCAL VACCINES (ACWY) Aged Out No longer eligible based on patient's age to complete this topic MENINGOCOCCAL VACCINES (B) Aged Out N o longer eligible based on patient's age to complete this topic PNEUMOCOCCAL VACCINES (0-49 years) Aged Out No longer eligible based on patient's age to complete this topic Medical Devices Not on file Insurance [facility] MEDICARE PART A & B [facility] MEDICARE PART A & B [facility] MEDICARE [facility] A & B [place] MEDIC[facility] PART A & [facility] B [facility] MEDICARE PART A & B Care Teams Registered Nurse Supervisor Relationship Specialty Start Date End Date Suly Tyson MD [address] [place] [address] PCP - Ophthalmology Ophthalmology 03/27/23 Elieser Moreno MD [address] [place] [address] [place] [address] PCP - General Internal Medicine 03/03/24 Additional Source Comments The information contained in this document represents components of the legal health record. It is not the complete legal health record.[facility]
[2025-01-20 12:50] LABS: Alanine Aminotransferase 103 U/L (0-40); Albumin Level 4.7 g/dL (3.5-5.0); Alkaline Phosphatase 63 U/L (39-117); Anion Gap 14 (12-20); Aspartate Amino Transferase 56 U/L (5-37); Blood Urea Nitrogen 29 mg/dL (9-16); Calcium 9.6 mg/dL (8.4-10.2); Carbon Dioxide 28 mmol/L (22-29); Chloride 105 mmol/L (96-108); Cholesterol 196 mg/dL (<200); Estimated Glomerular Filt Rate > 60; HDL Cholesterol 35 mg/dL (>40); Potassium 4.6 mmol/L (3.3-5.1); Sodium 142 mmol/L (135-145); Total Protein 7.6 g/dL (6.5-8.0); Triglycerides 171 mg/dL (<150)
[2025-01-20 13:09] LABS: Folate 11.3 ng/mL (> or = 4.0); Vitamin B12 462 pg/mL (200-900)
[2025-01-20 13:29] LABS: Uric Acid 6.6 mg/dL (3.4-7.0)
== END 2025-01-20 11:38 | disposition home or self-care (01) ==
LOC: HO.LAB 11:37
PROVIDERS: Visit Provider Internal Medicine
DX: E53.8 Deficiency of other specified B group vitamins (principal); R30.0 Dysuria; E78.00 Pure hypercholesterolemia, unspecified; M10.9 Gout, unspecified; D64.9 Anemia, unspecified; R73.01 Impaired fasting glucose; E55.9 Vitamin D deficiency, unspecified
CPT/HCPCS: 36415; 80053; 80061; 81003; 82306; 82607; 82746; 83036; 84443; 84550; 85025

== ENCOUNTER 2025-01-27 10:57 | Outpatient (AMB) | payer MEDICARE, MEDICAID, SELFPAY ==
[2025-01-27 11:02] VITALS: BP 128/80; PULSE 111; O2SAT 98; BMI 35.1
--- NOTE | 2025-01-27 11:02 | MHC.PC.OV ---
Vital Signs 01/27/25 11:02 Height 6 ft 1.5 in Weight 269 lb 8 oz BMI 35.1 BP 128/80 Blood Pressure Location Lt brachial Position Sitting Pulse 111 H Pulse Source Pulse Oximeter Pulse Oximetry (%) 98 Oxygen Delivery Method Room Air Intake Visit Reasons: 3 month f/u Auditor/Quality Required: No Accompanied by: Self / Same As Patient Allergies No Known Allergies Allergy (Verified 01/27/25 11:26) Medication List - Last Reconciled 01/27/25 by Elieser Moreno MD allopurinol 300 mg PO DAILY 90 days amantadine HCl 100 mg PO DAILY baclofen 20 mg PO TID PRN 30 days cholecalciferol (vitamin D3) 50 mcg PO DAILY 90 days colchicine 0.6 mg PO BID 90 days docusate sodium (Colace) 100 mg PO DAILY fluoxetine 40 mg PO DAILY fluticasone propionate 100 mcg/actuation 1 inh inhalation BID hot/cold therapy aids (ThermaCare Cold Wrap Joint pads) 1-2/ week as needed for left hip pain hydroxyzine HCl 25 mg PO BID indomethacin 25 mg PO BID lidocaine 4% 1 patch topical DAILY PRN lidocaine 5% 3 patches topical Q24H PRN lidocaine 5% 1 appl topical QID PRN 15 days lisinopril 20 mg PO DAILY loratadine 10 mg PO DAILY meloxicam 7.5 mg PO DAILY PRN metformin ER 500 mg PO BID 30 days methylcellulose (laxative) (Citrucel) 500 mg PO TID Mitigare (colchicine) 0.6 mg PO BID PRN 30 days NS mometasone 100 mcg/actuation (Asmanex HFA) 1 puff inhalation BID mupirocin 2% 1 appl topical BID 10 days naproxen 500 mg PO BID PRN quetiapine 100 mg PO BEDTIME quetiapine 50 mg PO BEDTIME risperidone 1 mg PO DAILY simethicone (Gas Relief (simethicone)) 125 mg PO TID-QID 30 days tizanidine 4 mg PO TID PRN 30 days tramadol 50 mg PO TID PRN 10 days Ventolin HFA 90 mcg/actuation (albuterol sulfate) 2 puffs PO Q6H PRN NS Tobacco use date assessed: 01/27/25 Dental Screening Dental Screen Date: 01/27/25 Did you have a dental visit in the last 12 months?: Yes Did you have a dental problem in the last 6 months where you did not have access to dental care?: No Was dental information given to patient?: Patient has dentist HPI 3 month f/u HPI Details Patient comes in today for his follow-up visit States that he feels okay He denies any headaches or dizziness Denies any chest pains, no shortness of breath No nausea/vomiting, no abdominal pain No change in bowel habits noted He had his follow-up labs done last week - to discuss his results He is also requesting for a referral to see Dermatology for what he feels is increasing patchy hair loss over his frontal scalp area recently [facility] Medical History Lumbar degenerative disc disease Essential hypertension Gout Learning disability Retinal dystrophy Vitamin D deficiency Impaired fasting glucose Obesity (BMI 30-39.9) Depression History of gout Chronic idiopathic constipation Asthma Benign essential hypertension Chronic constipation MORENO (nonalcoholic steatohepatitis) Rectal bleeding Surgical History H/O removal of testicle History of shoulder surgery Family History Mother Hypertension Father No problems noted. Other Mental health problem Social History Household Members Other:: Sister Housing: House Alcohol intake: former Patient Tobacco Use Status: Never used Tobacco e-Cigarette/Vaping Use: Never Used Second Hand Smoke Exposure: No service: No Current occupational status: disabled Cognitive needs: No Hearing needs: No Vision needs: Yes Questionnaire PHQ-9 Over the last 2 weeks, how often have you been bothered by any of the following problems? 1. Little interest or pleasure in doing things: several days 2. Feeling down, depressed, or hopeless: not at all 3. Trouble falling or staying asleep, or sleeping too much: not at all 4. Feeling tired or having little energy: not at all 5. Poor appetite or overeating: not at all 6. Feeling bad about yourself - or that you are a failure or have let yourself or your family down: not at all 7. Trouble concentrating on things, such as reading the newspaper or watching television: not at all 8. Moving or speaking so slowly that other people could have noticed. Or the opposite - being so fidgety or restless that you have been moving around a lot more than usual: not at all 9. Thoughts that you would be better off or of hurting yourself in some way: not at all Total score: 1 Depression Screening Interpretation: Negative Depression Screening Done: Yes 66448 - PHQ-9 Billing: Yes Source: Developed by Drs. Luis Simon, Virgen Davis, Florencio Trevizo and colleagues, with an educational heber from [employer]. Thrive Questionnaire Date Thrive assessed: 01/27/25 I am a: Patient What is your living situation today?: I choose not to answer this question Within the past 12 months, did the food you bought not last and you didn't have the money to get more?: I choose not to answer this question Within the past 12 months, did you worry whether your food would run out before you got money to buy more?: I choose not to answer this question Do you have trouble paying for medicines?: I choose not to answer this question Do you have trouble getting transportation to medical appointments?: I choose not to answer this question Do you have trouble paying your heating and electricity bill?: I choose not to answer this question Do you have trouble taking care of your child, family member or friend?: I choose not to answer this question Do you have trouble with day-to-day activities such as bathing, preparing meals, shopping, managing finances, etc.?: I choose not to answer this question Are you currently unemployed and looking for a job?: I choose not to answer this question Are you interested in more education?: I choose not to answer this question Please select the resources that you would like help with: Transportation and None Currently or been in a relationship where the following occur: I choose not to answer THRIVE Score: 0 AUDIT C Alcohol Use Questionnaire (AUDIT-C) 1. How often do you have a drink containing alcohol?: Never 3. How often do you have six or more drinks on one occasion?: Never Total Score: 0 Score Reviewed/Action Taken: Yes SUKHWINDER-7 AMB Questionnaire SUKHWINDER-7 Date SUKHWINDER - 7 assessed: 01/27/25 Feeling nervous, anxious, or on edge: 0 = Not at all Not being able to stop or control worryin = Not at all Worrying too much about different things: 0 = Not at all Trouble relaxin = Not at all Being so restless that it is hard to sit still: 0 = Not at all Becoming easily annoyed or irritable: 0 = Not at all Feeling afraid as if something awful might happen: 0 = Not at all Total SUKHWINDER-7 score (0-4 normal; 5-9 mild; 10-14 moderate; 15-21 severe): 0 Source: Developed by Drs. Luis Simon, Virgen Davis, Florencio Trevizo and colleagues, with an educational heber from [employer]. Review of Systems Const Denies chills, Denies fatigue, Denies fever(s) and Denies headache(s) Eyes Reports blurry vision (patient is legally blind in both eyes) ENT Denies dysphagia, Denies dizziness, Denies otalgia, Denies headache(s), Denies neck pain, Denies odynophagia and Denies sore throat Card Denies chest pain, Denies palpitations and Denies dyspnea Resp Denies chest congestion, Denies cough and Denies dyspnea GI Denies abdominal pain, Reports constipation (better controlled on Rx), Denies dysphagia, Denies heartburn, Denies diarrhea, Denies nausea, Denies odynophagia and Denies vomiting Denies difficulty urinating, Denies dysuria, Denies nocturia and Denies urinary frequency Musc Denies back pain, Reports arthralgias (left hip - chronic - improved with cortisone injection from ortho) and Denies neck pain Skin/Breast Reports alopecia (in patches) and Denies rash Neuro Denies dizziness and Denies headache(s) Endo Denies fatigue and Denies palpitations Physical exam (Primary Care) Vital Signs: Last Vital Signs Pulse 111 H 01/27/25 11:02 BP 128/80 01/27/25 11:02 Pulse Ox 98 01/27/25 11:02 Oxygen Delivery Method Room Air 01/27/25 11:02 BMI result Body Mass Index 35.1 Tobacco/Smoking Status: Tobacco use Status Tobacco use date assessed 01/27/25 01/27/25 11:07 Patient Tobacco Use Status Never used Tobacco 01/27/25 11:07 e-Cigarette/Vaping Use Never Used 01/27/25 11:07 PHQ-9: PHQ-9 Score PHQ-9: Total score 1 01/27/25 11:27 Depression Screening Interpretation: Negative Thrive Assessment: Date of Thrive Assessment Date Thrive assessed 01/27/25 01/27/25 11:07 Currently or been in a relationship where the following occur: I choose not to answer Const General: no acute distress and alert HENMT Ears: TM's normal bilaterally and EAC's normal Throat: Yes posterior oropharynx normal and Yes tonsils normal (no TP congestion noted) Neck Neck: Yes supple and No lymphadenopathy Thyroid: Thyroid normal Resp Auscultation: clear to auscultation bilaterally, no rales and no wheezes Cardio Rate: regular rate Rhythm: regular rhythm Heart sounds: no murmurs GI Palpation (GI): Soft to palpation and nontender Auscultation: normal bowel sounds General: Yes no CVA tenderness Back/Spine/Pelvis Back: no CVA tenderness Thoracic/Lumbar Spine: No lumbar spinal tenderness Skin Rashes: no rashes Hair: male pattern alopecia Extrem General: Yes no clubbing, cyanosis or edema Left lower extremity: hip/thigh Details: tenderness Location: of the hip Location: anterolaterally Results Reviewed Results Reviewed: Laboratory Tests 01/20/25 01/20/25 11:30 11:53 WBC 6.4 Hgb 13.9 L Hct 40.3 L Plt Count 181 Sodium 142 Potassium 4.6 Creatinine 1.01 Estimated GFR > 60 Fasting Glucose 115 H Hemoglobin A1c % 6.6 H Uric Acid 6.6 Calcium 9.6 AST 56 H ALT 103 H Triglycerides 171 H Cholesterol 196 LDL Cholesterol, Calc 127 H HDL Cholesterol 35 L Vitamin B12 462 25-OH Vitamin D Total 38.6 TSH 0.66 Ur Specific [place] 1.025 Urine Protein Negative Urine Glucose (UA) Negative Urine Blood Negative Urine Nitrite Negative Ur Leukocyte Esterase Negative Coding Level of Care Code Est Pt Level 4 (75305) Diagnoses Type 2 diabetes mellitus without complication, without long-term current use of insulin E11.9 Diabetes mellitus type: type 2 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: without retirement use Diabetes mellitus complication status: without complication Mixed hyperlipidemia E78.2 Essential hypertension I10 Mild intermittent asthma without complication J45.20 Asthma severity: mild Asthma persistence: intermittent Asthma complication type: uncomplicated Abnormal iron saturation R79.0 Chronic idiopathic constipation K59.04 Degeneration of intervertebral disc of lumbar region with discogenic back pain and lower extremity pain M51.362 Disc-related pain type: discogenic back pain and lower extremity pain 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 M16.32 Vitamin D deficiency E55.9 Elevated LFTs R79.89 Chronic gout without tophus, unspecified cause, unspecified site [id number] Gout site: unspecified site Gout etiology: unspecified cause Chronicity: chronic Presence of tophus: without tophus Alopecia L65.9 Episode of recurrent major depressive disorder, unspecified depression episode severity F33.9 Depression Type: major depressive disorder Major depression recurrence: recurrent Active/Remission status: currently active Major depression episode severity: unspecified Obesity (BMI 30-39.9) E66.9 Additional Codes PHQ-9 - 79639 - PHQ-9 Billing: Yes ([id number]) Assessment & Plan Assessment & Plan (1) Diabetes mellitus: Code(s): E11.9 - Type 2 diabetes mellitus without complications Category: Medical Qualifiers: Diabetes mellitus type: type 2 Diabetes mellitus retirement insulin use: without retirement use Diabetes mellitus complication status: without complication Qualified Code(s): E11.9 - Type 2 diabetes mellitus without complications Plan: His HgbA1c was at 6.6% on his labs done last week - this has increased from his previous HgbA1c of 6.0% a few months ago - goal is at least <7.0% but ideally <6.5% Reinforced diabetic diet Continue Metformin ER 500 mg BID (he could not tolerate Metformin IR) Will have him recheck his FBS and HgbA1c in 3 months for follow up (2) Mixed hyperlipidemia: Code(s): E78.2 - Mixed hyperlipidemia Category: Medical Plan: Results of his labs done last week reviewed and discussed with patient Reinforced low cholesterol diet Will recheck his labs and fasting lipids in 3 months for follow up (3) Essential hypertension: Code(s): I10 - Essential (primary) hypertension Category: Medical Plan: Reinforced low sodium diet - goal is systolic BP of 120 mm or less Continue Lisinopril 20 mg QD (4) Asthma: Code(s): J45.909 - Unspecified asthma, uncomplicated Category: Medical Qualifiers: Asthma severity: mild Asthma persistence: intermittent Asthma complication type: uncomplicated Qualified Code(s): J45.20 - Mild intermittent asthma, uncomplicated Plan: Controlled Continue Flovent HFA 110 mcg 2 puffs BID and Ventolin HFA 2 puffs QID PRN (5) Abnormal iron saturation: Code(s): R79.0 - Abnormal level of blood mineral Category: Medical Plan: Patient's LFTs have remained elevated and are mostly unchanged from his previous numbers a few months ago He also appears to have elevated iron stores as evidenced in his high ferritin level and elevated iron studies His hemochromatosis done a few months ago came back normal/negative (6) Chronic idiopathic constipation: Comment: Pleasant 42-year-old male-many questions answered to his satisfaction, Very happy progress he is made being able to maintain consistent bowel pattern Code(s): K59.04 - Chronic idiopathic constipation Category: Medical Plan: Continue Linzess 145 mcg QD and Senna 8.6 mg PRN Patient is again encouraged on increased oral fluids and dietary fiber intake Follow up with GI as scheduled (7) Lumbar degenerative disc disease: Code(s): M51.369 - Other intervertebral disc degeneration, lumbar region without mention of lumbar back pain or lower extremity pain Category: Medical Qualifiers: Disc-related pain type: discogenic back pain and lower extremity pain Qualified Code(s): M51.362 - Other intervertebral disc degeneration, lumbar region with discogenic back pain and lower extremity pain Plan: X-rays of the lumbar spine done a couple of years ago revealed (+) degenerative disc disease Reinforced activity and weight-lifting restrictions to avoid aggravating his low back pain (8) 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: Code(s): M16.32 - Unilateral osteoarthritis resulting from hip dysplasia, left hip Category: Medical Plan: Left hip x-rays done back in 2013 revealed findings of mild left hip dysplasia; repeat left hip x-rays done last year revealed the same - (+) findings of left hip dysplasia He was seen by [facility] a couple of years ago but he requested to be referred to [facility] for a second opinion and he is now following up with [facility] regularly for his joint pains (9) Vitamin D deficiency: Code(s): E55.9 - Vitamin D deficiency, unspecified Category: Medical Plan: Continue Vitamin D3 2000 units QD (10) Elevated LFTs: Code(s): R79.89 - Other specified abnormal findings of blood chemistry Category: Medical Plan: His LFTs are still elevated on his recent labs and have increased slightly from previous - this is again most likely due to hepatosteatosis and related to his weight and should improve with weight loss Will recheck his LFTs in 3 months for follow up (11) Gout: Code(s): M10.9 - Gout, unspecified Category: Medical Qualifiers: Gout site: unspecified site Gout etiology: unspecified cause Chronicity: chronic Presence of tophus: without tophus Qualified Code(s): M1A.9XX0 - Chronic gout, unspecified, without tophus (tophi) Plan: His serum uric acid has improved to 6.6 on his recent labs; was elevated at 10.3 a few months ago Reinforced low purine diet Continue Allopurinol 300 mg QD and Colchicine 0.6 mg BID PRN He was also on Indomethacin 50 mg TID PRN previously but his insurance would not cover the Rx; is currently taking Naproxen PRN (12) Alopecia: Code(s): L65.9 - Nonscarring hair loss, unspecified Category: Medical Plan: Per request, we will refer him to Dermatology for further evaluation and management (13) Depression: Code(s): F32.9 - Major depressive disorder, single episode, unspecified Category: Medical Qualifiers: Depression Type: major depressive disorder Major depression recurrence: recurrent Active/Remission status: currently active Major depression episode severity: unspecified Qualified Code(s): F33.9 - Major depressive disorder, recurrent, unspecified Plan: Continue Fluoxetine 40 mg QD, Risperidone 1 mg QD and Seroquel 150 mg Q HS Follow up with psychiatry as scheduled (14) Obesity (BMI 30-39.9): Code(s): E66.9 - Obesity, unspecified Category: Medical Plan: Reinforced diet/exercise as tolerated/lose weight Plan Follow-up in 3 months Orders: Orders Complete Blood Count Auto Diff 3 Months D64.9 - Anemia, unspecified Lipid Panel 3 Months E78.00 - Pure hypercholesterolemia, unspecified Hemoglobin A1c 3 Months E11.9 - Type 2 diabetes mellitus without complications TSH reflex Free T4 3 Months E78.00 - Pure hypercholesterolemia, unspecified UA CC w/rflx Micro + Cult 3 Months R30.0 - Dysuria Vitamin D 25-OH Total 3 Months E55.9 - Vitamin D deficiency, unspecified Comprehensive [place]. Panel Fast 3 Months E78.00 - Pure hypercholesterolemia, unspecified Microalbumin, Random (w Creat) 3 Months E11.9 - Type 2 diabetes mellitus without complications Referrals Dermatology Referral L65.9 - Nonscarring hair loss, unspecified, L98.9 - Disorder of the skin and subcutaneous tissue, unspecified
--- OUTSIDE RECORDS SUMMARY | 2025-01-27 12:06 | XMS_ITS | Clinical Summary ---
Author Organization Formerly [facility] Address [address] [place] [id number] Phone Care Team Providers Care Industrial Specialist Name Role Phone Suly Tyson MD Unavailable [phone] Elieser Moreno MD Primary Care Provider [phone] Allergies No known active allergies Medications allopurinol [...] Description 03/01/2026 10:30 AM EDT Office Visit [facility] [address] [facility] 3rd [place] [address] Benjamin Coles MD, PhD [address] [place] [address] [email or web address] Health Maintenance Due Date Last Done Comments [...] topic Medical Devices Not on file Insurance [facility] MEDICARE PART A & B [facility] MEDICARE PART A & B [facility] MEDICARE [facility] A & B [place] MED[facility] PART A & [facility] B [facility] MEDICARE PART A & B Care Teams Industrial Specialist Relationship Specialty Start Date End Date Suly Tyson MD [address] [place] [address] PCP - Ophthalmology Ophthalmology 03/27/23 Elieser Moreno MD [address] [place] [address] [place] [address] PCP - General Internal Medicine 03/03/24 Additional Source Comments The information contained in this document represents components of the legal health record. It is not the complete legal health record.Formerly [facility]
--- OUTSIDE RECORDS SUMMARY | 2025-01-27 12:06 | XMS_ITS | Clinical Summary ---
Author Organization [facility] Address [address] [place] [address] Phone Care Team Providers Care Executive Talent Acquisition Consultant Name Role Phone Elieser Moreno MD Primary Care Provider [phone] Allergies No known active allergies Medications allopurinoL [...] LAB CHEMISTRY METHOD 07/14/2024 7:25 PM EST [facility] Potassium 3.7 3.5 - 5.5 mmol/L LAB CHEMISTRY METHOD 07/14/2024 7:25 PM EST [facility] Chloride 104 96 - 110 mmol/L LAB CHEMISTRY METHOD 07/14/2024 7:25 PM EST [facility] CO2 29 21 - 32 mmol/L LAB CHEMISTRY METHOD 07/14/2024 7:25 PM EST [facility] Anion Gap 7 3 - 11 LAB CHEMISTRY METHOD 07/14/2024 7:25 PM EST [facility] Glucose 131(H) 70 - 100 mg/dL LAB CHEMISTRY METHOD 07/14/2024 7:25 PM [facility] BUN 16 5 - 25 mg/dL LAB CHEMISTRY METHOD 07/14/2024 7:25 PM [facility] Creatinine 0.89 0.70 - 1.30 mg/dL LAB CHEMISTRY METHOD 07/14/2024 7:25 PM [facility] eGFR 110 >=60 mL/min/1. 73m2 LAB CHEMISTRY METHOD 07/14/2024 7:25 PM [facility] Comment:Calculation based on the Chronic Kidney Disease Epidemiology Collaboration (CKD-EPI) equation refit without adjustment for race. BUN/Creatinine Ratio 18.0 LAB CHEMISTRY METHOD 07/14/2024 7:25 PM [facility] Calcium 9.7 8.5 - 10.5 mg/dL LAB CHEMISTRY METHOD 07/14/2024 7:25 PM [facility] Blood Venous blood specimen / Unknown Venipuncture / Unknown 07/14/2024 6:36 PM EST 07/14/2024 6:58 PM EST Brian Aaron Anguiano MD LAB BLOOD ORDERABLES Final Resu lt [facility] [address] [place] [address], from Last 3 Months or Most Recently Relevant to Health Maintenance Insurance [place] MED[place]ARE [place] - [place] Care Teams Executive Talent Acquisition Consultant Relationship Specialty Start Date End Date Elieser Moreno MD [address] [place] [address] [place] [address] [place] [address] [place] PCP - General Internal Medicine 05/13/24
== END 2025-01-27 11:41 | disposition home or self-care (01) ==
LOC: HO.HMCH 10:58
PROVIDERS: PCP Internal Medicine; Visit Provider Internal Medicine
DX: E11.69 Type 2 diabetes mellitus with other specified complication (principal); E78.2 Mixed hyperlipidemia; E66.9 Obesity, unspecified; Z68.35 Body mass index [BMI] 35.0-35.9, adult; I10 Essential (primary) hypertension; J45.20 Mild intermittent asthma, uncomplicated; R79.0 Abnormal level of blood mineral; K59.04 Chronic idiopathic constipation; M51.362 Other intervertebral disc degeneration, lumbar region with discogenic back pain and lower extremity pain; M16.32 Unilateral osteoarthritis resulting from hip dysplasia, left hip; E55.9 Vitamin D deficiency, unspecified; R79.89 Other specified abnormal findings of blood chemistry

== ENCOUNTER → 2025-01-27 10:57 | Outpatient (BNVA) | payer MEDICARE, MEDICAID, SELFPAY | PROVIDERS: PCP Internal Medicine; Visit Provider Internal Medicine | DX: E11.9 Type 2 diabetes mellitus without complications (principal); E78.2 Mixed hyperlipidemia; I10 Essential (primary) hypertension; J45.20 Mild intermittent asthma, uncomplicated; R79.0 Abnormal level of blood mineral; K59.04 Chronic idiopathic constipation; M51.362 Other intervertebral disc degeneration, lumbar region with discogenic back pain and lower extremity pain; M16.32 Unilateral osteoarthritis resulting from hip dysplasia, left hip; E55.9 Vitamin D deficiency, unspecified; R79.89 Other specified abnormal findings of blood chemistry; M1A.9XX0 Chronic gout, unspecified, without tophus (tophi); L65.9 Nonscarring hair loss, unspecified; F33.9 Major depressive disorder, recurrent, unspecified; E66.9 Obesity, unspecified; Z68.35 Body mass index [BMI] 35.0-35.9, adult; Z71.3 Dietary counseling and surveillance | CPT/HCPCS: 96127; 99212 ==

== ENCOUNTER → 2025-02-11 10:58 | Outpatient (BNVA) | payer MEDICARE, MEDICAID, SELFPAY | PROVIDERS: PCP Internal Medicine; Visit Provider Internal Medicine | DX: E78.5 Hyperlipidemia, unspecified (principal); R73.01 Impaired fasting glucose; K75.81 Nonalcoholic steatohepatitis (NASH); E66.9 Obesity, unspecified; Z68.31 Body mass index [BMI] 31.0-31.9, adult; R79.89 Other specified abnormal findings of blood chemistry; Z79.84 Long term (current) use of oral hypoglycemic drugs | CPT/HCPCS: 99212 ==

== ENCOUNTER → 2025-02-11 10:58 | Outpatient (AMB) | payer MEDICARE, MEDICAID, SELFPAY ==
--- NOTE | 2025-02-11 11:11 | MHC.OFFVIS ---
Vital Signs 02/11/25 11:19 Height 6 ft 5 in Weight 263 lb BMI 31.2 BP 118/67 Blood Pressure Location Lt brachial Position Sitting Pulse 114 H Pulse Oximetry (%) 97 Oxygen Delivery Method Room Air Intake Visit Reasons: 6 mo f/u Fatty Liver r/s 02/09 Intake Note: Patient follow up for Fatty Liver and lab results Patient denies any GI issues for today visit. Dope Firer Required: No Accompanied by: Family/Other Allergies No Known Allergies Allergy (Verified 02/11/25 11:14) HPI Comments Details: 43 y.o M legally blind, prev established with [facility] for fatty liver. Here for routine follow up. Reports occ R sided pain shelly on laying down. Otherwise no N/V/D. Has lost almost 30 lbs INTENTIONALLY over the last year to help with metabolic syndrome. DM well controlled on metformin, reports in office A1c of 6 last month. No recent labs available x 6 months. Elastography 2023: 1. There is generalized increase in hepatic echotexture, consistent with fatty infiltration or hepatocellular disease. Please correlate clinically. No focal hepatic mass or intrahepatic biliary dilatation is seen. 2. Liver elastography: In the absence of other known clinical signs, measurements rule out compensated advanced chronic liver disease. If there are known clinical signs, further testing may be needed for confirmation. 3. The right kidney shows a malrotated, horseshoe configuration. This would be better demonstrated with cross-sectional imaging, if clinically relevant. 4. Technically limited ultrasound examination of the pancreas. 02/11/25: Here for follow up. Fib 4 based on most recent labs is 1.28. Pt himself unfortunately regained most of the weight. Up by 20 lbs since he was last seen. Reports living in a new facility now and not being too mindful now in terms of what hes eating. Otherwise no abd pain, N,V. No changes in sleep wake cycle. No change in abd girth. Labs as below, notably has T2DM. On metformin monotherapy. Laboratory Tests 10/02/24 01/20/25 07:17 11:53 Hgb 13.9 L Hct 40.3 L Plt Count 181 BUN 29 H Creatinine 1.01 Fasting Glucose 115 H Hemoglobin A1c % 6.6 H % Saturation 27 Ferritin 576 H Total Bilirubin 0.6 ALT 103 H LDL Cholesterol, Calc 127 H HDL Cholesterol 35 L PFSH Medical History Lumbar degenerative disc disease Essential hypertension Gout Learning disability Retinal dystrophy Vitamin D deficiency Impaired fasting glucose Obesity (BMI 30-39.9) Depression History of gout Chronic idiopathic constipation Asthma Benign essential hypertension Chronic constipation MORENO (nonalcoholic steatohepatitis) Rectal bleeding Surgical History H/O removal of testicle History of shoulder surgery Family History Mother Hypertension Father No problems noted. Other Mental health problem Social History Household Members Other:: Sister Housing: House Alcohol intake: former Patient Tobacco Use Status: Never used Tobacco e-Cigarette/Vaping Use: Never Used Second Hand Smoke Exposure: No service: No Current occupational status: disabled Cognitive needs: No Hearing needs: No Vision needs: Yes Review of Systems Const All systems reviewed & are unremarkable except as noted in HPI and below Physical Exam Vital Signs: No apparent distress, legally blind Nonicteric Abdomen soft, nondistended Alert and oriented x3, uses cane to ambulate Assessment & Plan Assessment & Plan (1) Elevated LFTs: Code(s): R79.89 - Other specified abnormal findings of blood chemistry Category: Medical (2) Impaired fasting glucose: Code(s): R73.01 - Impaired fasting glucose Category: Medical (3) MORENO (nonalcoholic steatohepatitis): Code(s): K75.81 - Nonalcoholic steatohepatitis (MORENO) Category: Medical (4) Obesity: Code(s): E66.9 - Obesity, unspecified Category: Medical (5) Hyperlipidemia: Code(s): E78.5 - Hyperlipidemia, unspecified Category: Medical Plan Overall clinical assessment consistent with MAFLD/MASH. Based on fib 4 score of 1.28 and absence of other risk factors (such as uncontrolled T2DM, age >50, BMI >50,) patient falls under low risk for progression, and therefore this time is being discharged back to PCP's care for obesity management and prevention of cardiovascular disease. Would recommend considering GLP-1 for DM management which will also additionally help with weight loss and hepatic steatosis. He was also made aware to start CRC screening at 47 either stool based or direct visualization. Follow up with GI prn Coding Level of Care Code Est Pt Level 4 (47656) Complex EM visit Add On G2211 Diagnoses Elevated LFTs R79.89 Impaired fasting glucose R73.01 MORENO (nonalcoholic steatohepatitis) K75.81 Obesity E66.9 Hyperlipidemia E78.5
[2025-02-11 11:19] VITALS: BP 118/67; PULSE 114; O2SAT 97; BMI 31.2
--- OUTSIDE RECORDS SUMMARY | 2025-02-11 11:55 | XMS_ITS | Clinical Summary ---
Author Organization [facility] Address [address] [place] [id number] Phone Care Team Providers Care Social Media Campaign Manager Name Role Phone Suly Tyson MD Unavailable [phone] Elieser Moreno MD Primary Care Provider [phone] Allergies No known active allergies Medications allopurinol [...] Description 03/01/2026 10:30 AM EDT Office Visit [facility] [address] [facility] [address] [place] [address] Benjamin Coles MD, PhD [address] [place] [address] [email or web address] [place] [facility] Health Maintenance Due Date Last Done Comments [...] topic Medical Devices Not on file Insurance [facility] MEDIC[facility] PART A & B [facility] MEDIC[facility] PART A & B [facility]IC[facility] PART A & B [place] MEDICARE PART A & B [facility] & B [facility] MEDICARE PART A & B Care Teams Social Media Campaign Manager Relationship Specialty Start Date End Date Suly Tyson MD [address] [place] [address] PCP - Ophthalmology Ophthalmology 03/27/23 Elieser Moreno MD [address] [place] [address] [place] [address] PCP - General Internal Medicine 03/03/24 Additional Source Comments The information contained in this document represents components of the legal health record. It is not the complete legal health record.[facility]
--- OUTSIDE RECORDS SUMMARY | 2025-02-11 11:55 | XMS_ITS | Clinical Summary ---
Author Organization [facility] Address [address] [place] [address] Phone Care Team Providers Care Management Retail Intern Name Role Phone Elieser Moreno MD Primary Care Provider [phone] Allergies No known active allergies Medications allopurinoL [...] LAB CHEMISTRY METHOD 07/14/2024 7:25 PM EST [facility] Potassium 3.7 3.5 - 5.5 mmol/L LAB CHEMISTRY METHOD 07/14/2024 7:25 PM EST [facility] Chloride 104 96 - 110 mmol/L LAB CHEMISTRY METHOD 07/14/2024 7:25 PM EST [facility] CO2 29 21 - 32 mmol/L LAB CHEMISTRY METHOD 07/14/2024 7:25 PM EST [facility] Anion Gap 7 3 - 11 LAB CHEMISTRY METHOD 07/14/2024 7:25 PM EST [facility] Glucose 131(H) 70 - 100 mg/dL LAB CHEMISTRY METHOD 07/14/2024 7:25 PM [facility] BUN 16 5 - 25 mg/dL LAB CHEMISTRY METHOD 07/14/2024 7:25 PM [facility] Creatinine 0.89 0.70 - 1.30 mg/dL LAB CHEMISTRY METHOD 07/14/2024 7:25 PM [facility] eGFR 110 >=60 mL/min/1. 73m2 LAB CHEMISTRY METHOD 07/14/2024 7:25 PM [facility] Comment:Calculation based on the Chronic Kidney Disease Epidemiology Collaboration (CKD-EPI) equation refit without adjustment for race. BUN/Creatinine Ratio 18.0 LAB CHEMISTRY METHOD 07/14/2024 7:25 PM [facility] Calcium 9.7 8.5 - 10.5 mg/dL LAB CHEMISTRY METHOD 07/14/2024 7:25 PM [facility] Blood Venous blood specimen / Unknown Venipuncture / Unknown 07/14/2024 6:36 PM EST 07/14/2024 6:58 PM EST Brian Aaron Anguiano MD LAB BLOOD ORDERABLES Final Resu lt [facility] [address] [place] [address], from Last 3 Months or Most Recently Relevant to Health Maintenance Insurance [place] MED[place] Care Teams Management Retail Intern Relationship Specialty Start Date End Date Elieser Moreno MD [address] [place] [address] [place] [address] [place] [address] [place] PCP - General Internal Medicine 05/13/24
== END ==
LOC: HO.HGI 10:59
PROVIDERS: PCP Internal Medicine; Visit Provider Internal Medicine
DX: R79.89 Other specified abnormal findings of blood chemistry (principal); R73.01 Impaired fasting glucose; K75.81 Nonalcoholic steatohepatitis (NASH); E66.9 Obesity, unspecified; E78.5 Hyperlipidemia, unspecified
CPT/HCPCS: 99214; G2211